=== PATIENT | male | born 1955 | race African-American/Black ===

== ENCOUNTER 2018-03-19 09:57 | Inpatient (IN) | payer OTHER ==
[2018-03-19] MEDS ORDERED: LISINOPRIL 10 MG TABLET (FP) PO ONE (12:06)
[2018-03-19] MEDS ORDERED: HYDROCHLOROTHIAZIDE 25 MG TABLET (FP) PO ONE (12:06)
[2018-03-19] MEDS ORDERED: HYDROCHLOROTHIAZIDE 25 MG TABLET (FP) ONE (12:10)
[2018-03-19] MEDS ORDERED: LISINOPRIL 20 MG TABLET (FP) ONE (12:11)
[2018-03-19 12:50] LABS: BASO % 0.5 % (0-2.0); EOS % 0.5 % (0-4.5); HEMATOCRIT 38.5 % (35.4-49); HEMOGLOBIN 12.1 GM/dL (11.7-16.9); LYMPH % 14.3 % (8-40); MCH 23.7 pg (25.7-33.7); MCHC 31.5 g/dl (32.0-35.9); MEAN CELL VOLUME 75.2 fl (80-96); MEAN PLT VOLUME 8.5 fl (7.5-11.1); MONO % 5.6 % (3.8-10.2); NEUT % 79.1 % (42.8-82.8); PLATELET COUNT 230 K/MM3 (134-434); RBC 5.12 M/mm3 (4.00-5.60); RDW 16.5 % (11.9-15.9); WHITE BLOOD COUNT 7.4 K/mm3 (4.0-10.0)
[2018-03-19 13:26] LABS: ALBUMIN 3.2 g/dl (3.4-5.0); ALK PHOS 79 U/L (45-117); ANION GAP 9 MMOL/L (8-16); BILIRUBIN,TOTAL 0.6 mg/dL (0.2-1); BLOOD UREA NITROGEN 31 mg/dL (7-18); CALCIUM 9.2 mg/dL (8.5-10.1); CHLORIDE 100 mmol/L (98-107); CO2 34 mmol/L (21-32); CREATININE 2.5 mg/dL (0.55-1.3); GLUCOSE,RANDOM 201 mg/dL (74-106); MAGNESIUM 2.7 mg/dL (1.8-2.4); PHOSPHOROUS 1.2 mg/dL (2.5-4.9); SGOT/AST 36 U/L (15-37); SGPT/ALT 28 U/L (13-61); SODIUM 143 mmol/L (136-145); TOT PROT 7.5 g/dl (6.4-8.2)
[2018-03-19 13:28] LABS: POTASSIUM 2.3 mmol/L (3.5-5.1)
[2018-03-19] MEDS ORDERED: LABETALOL HCL 5 MG/1 ML (100MG/20 ML VIAL) IVPUSH ONE (13:28)
--- NOTE | 2018-03-19 13:32 | PDOC ---
Attending Attestation - Resident Resident Name: Kye Caro - ED Attending Attestation I have performed the following: I have examined & evaluated the patient, The case was reviewed & discussed with the resident, I agree w/resident's findings & plan - HPI HPI: 03/19/18 15:25 62 YOM, with a significant past medical history of hypertension, who presents to the emergency department with, elevated blood pressure. As per patient, he arrived from [place] 3 months ago and was seen by a [facility] doctor who put him on Lisinopril/HCTZ BID. Patient notes that he ran out of blood pressure medication 4 days ago. He took his blood pressure using an at home cuff and obtained a reading of 248/120. Patient notes that his blood pressure was not well controlled with his medication. He was unable to report to the ED yesterday thus, prompting his visit today. While in the ED, the patient notes to be asymptomatic without any complaints. He denies any recent fevers, chills, headache or dizziness. He denies any recent nausea, vomit, diarrhea or constipation. He denies any recent chest pain or shortness of breath. He denies any recent dysuria, frequency, urgency or hematuria. Allergies: NKA Past surgical history: None reported. Social History: Nonsmoker. Denies EtOH use and recreational drug use. - Physicial Exam PE: 03/19/18 15:26 NAD, well appearing, MMM, nl conjunctiva, anicteric; neck supple. no JVD. lungs clear, RRR, +systolic murmur, abdomen soft nontender. VALENZUELA x4, no focal neuro deficits. No peripheral edema. normal color for ethnicity, WW. - Medical Decision Making 03/19/18 13:32 Rebecca 62 YOM from [place] x 3 months ago presenting with asymptomatic hypertension. Ran out of antihypertensives (lisinopril/hctz combo, which he has been taking x 2 weeks) 2 days ago, BP rechecked at home which has remained elevated. denies symptoms. no recent illnesses. Vitals notable for elevated BP: 248/120, HR 100. No symptoms. EKG normal sinus rhythm, no interval abnormalities, narrow QRS, ST and T wave segments and morphology normal. Nonspecific T wave abnormalities. LVH, left axis deviation. Labs and lytes with elevated Cr 2.5 and trop, with e/o end organ damage in the setting of hypertensive emergency. trop elevated 0.2, given ASA and on tele monitoring. potassium low 2.3, on tele and repleted with 3 runs of IV potassium and PO 40meq. Given PO lisinopril/hctz, slow reduction in BP down to 180s/100s, allowing for MAP reduction by no more than 25% in first 24 hours. Will admit for BP management, continuous tele monitoring and medical management , electrolyte monitoring. Dr Martinez to admit. Dx. hypertensive emergency, RONNA, electrolyte derangements with hypo-K. 03/19/18 15:25
--- NOTE | 2018-03-19 13:49 | PDOC ---
History of Present Illness - General History Source: Patient Exam Limitations: No Limitations - History of Present Illness Initial Comments: 03/19/18 13:44 *Pt is somewhat a poor historian Pt is a 62yo m with PMH of HTN presenting to ED with elevated blood pressure. Pt said he checked his bp yesterday at home with a home bp cuff and said it was high. Pt could not remember what the number was. Pt recently moved here from [place] around 3 months ago. He saw a physician at the [facility] when he was told he had hypertension. He was given lisinopril/hctz 10-12.5. He ran out of his medications 2 days ago. He has not seen a physician here. He denies headache, changes in vision, chest pain, SOB, back pain, neck pain, numbness/tingling/ weakness, abdominal pain, n/v/d, urinary symptoms, changes in bowel habits. Denies history of IN or CVA in self and denies family history of IN/CVA. PCP: none PMH: htn PSH: 3 years ago had suprapubic catheter and L kidney/ureter surgery Meds: lisinipril/hctz Allergies: nkda Social: denies <Key Caro - Last Filed: 03/19/18 14:14> <Joya Harrison - Last Filed: 03/19/18 15:27> - General Chief Complaint: Blood Pressure Problem Stated Complaint: BLOOD PRESSURE PROBLEM Time Seen by Provider: 03/19/18 11:05 Past History - Past Medical History COPD: No HTN: Yes - Immunization History Immunization Up to Date: Yes - Suicide/Smoking/Psychosocial Hx Smoking History: Never smoked Hx Alcohol Use: No Drug/Substance Use Hx: No <Key Caro - Last Filed: 03/19/18 14:14> <Joya Harrison - Last Filed: 03/19/18 15:27> - Past Medical History Allergies/Adverse Reactions: Allergies Allergy/AdvReac Type Severity Reaction Status Date / Time No Known Allergies Allergy Verified 03/19/18 10:08 Home Medications: Ambulatory Orders Aspirin [ASA -] 81 mg PO DAILY 03/19/18 Lisinopril/Hydrochlorothiazide [Lisinopril-Hctz 10-12.5 mg Tab] 1 each PO BID Review of Systems - Review of Systems Able to Perform ROS?: Yes Is the patient limited Cypriot proficient: No Constitutional: No: Chills, Fever, Weakness, Unintentional Wgt. Loss HEENTM: No: Blurred Vision, Recent change in vision, Double Vision, Hearing Loss , Throat Pain Respiratory: No: Cough, Shortness of Breath, Hemoptysis Cardiac (ROS): No: Chest Pain, Lightheadedness, Palpitations, Syncope ABD/GI: No: Diarrhea, Nausea, Poor Appetite, Vomiting, Abdominal cramping : No: Burning, Dysuria, Hematuria Musculoskeletal: No: Back Pain, Joint Pain, Muscle Pain, Neck Pain Neurological: No: Headache, Numbness, Paresthesia, Tingling, Weakness Hematologic/Lymphatic: No: Anemia, Blood Clots <Key Caro - Last Filed: 03/19/18 14:14> *Physical Exam - Vital Signs Last Vital Signs Temp Pulse Resp BP Pulse Ox 98.9 F 100 H 18 228/107 H 98 03/19/18 10:09 03/19/18 10:09 03/19/18 10:09 03/19/18 10:09 03/19/18 11:35 - Physical Exam Comments: 03/19/18 14:14 Pt sitting in bed comfortably General Appearance: Yes: Nourished, Appropriately Dressed. No: Apparent Distress HEENT: positive: EOMI, MOSES, Pharynx Normal, Hearing Grossly Normal. negative: Pale Conjunctivae, Photophobia, Scleral Icterus (R), Scleral Icterus (L), Pharyngeal Erythema, Nasal Congestion, Sinus Tenderness, Thrush Neck: positive: Trachea midline, Supple. negative: Carotid bruit, Lymphadenopathy (R), Lymphadenopathy (L) Respiratory/Chest: positive: Lungs Clear, Normal Breath Sounds. negative: Crackles, Rales, Rhonchi, Stridor, Wheezing Cardiovascular: positive: Regular Rhythm, S1, S2, Tachycardia, Other (s2 click heard over aortic valve). negative: Edema, JVD, Murmur Vascular Pulses: Carotid (R): 2+, Carotid (L): 2+, Dorsalis-Pedis (R): 2+, Doralis-Pedis (L): 2+ Gastrointestinal/Abdominal: positive: Normal Bowel Sounds, Soft. negative: Distended, Guarding, Rebound, Tenderness Musculoskeletal: negative: CVA Tenderness, CVA Tenderness (R), CVA Tenderness (L ), Decreased Range of Motion Extremity: positive: Normal Capillary Refill. negative: Pedal Edema, Swelling, Calf Tenderness, Erythema Integumentary: positive: Normal Color, Dry, Warm. negative: Pale, Cold, Rash, Swelling Neurologic: positive: classified advertising manager II-XII NML intact, Fully Oriented, Alert, Normal Mood/ Affect, Normal Response, Motor Strength 5/5. negative: Numbness, Sensory Deficit Deep Tendon Reflexes: Ankle (L): 2+, Ankle (R): 2+, Knee (L): 2+, Knee (R): 2+ <Key Caro - Last Filed: 03/19/18 14:14> - Vital Signs Last Vital Signs Temp Pulse Resp BP Pulse Ox 98.9 F 89 18 184/111 H 97 03/19/18 10:09 03/19/18 15:10 03/19/18 15:10 03/19/18 15:10 03/19/18 15:10 <Joya Harrison - Last Filed: 03/19/18 15:27> ED Treatment Course - LABORATORY CBC & Chemistry Diagram: 03/19/18 12:09 03/19/18 12:09 - ADDITIONAL ORDERS Additional order review: Laboratory Results 03/19/18 03/19/18 03/19/18 12:42 12:09 12:09 PTT (Actin FS) 37.4 H Sodium 143 Potassium 2.3 L* Chloride 100 Carbon Dioxide 34 H Anion Gap 9 BUN 31 H Creatinine 2.5 H Creat Clearance w eGFR 26.13 Random Glucose 201 H Calcium 9.2 Phosphorus 1.2 L Magnesium 2.7 H Total Bilirubin 0.6 AST 36 ALT 28 Alkaline Phosphatase 79 Creatine Kinase 628 H Creatine Kinase Index 0.6 CK-MB (CK-2) 3.8 H Troponin I 0.20 H Total Protein 7.5 Albumin 3.2 L 03/19/18 12:09 RBC 5.12 MCV 75.2 L MCHC 31.5 L RDW 16.5 H MPV 8.5 Neutrophils % 79.1 Lymphocytes % 14.3 Monocytes % 5.6 Eosinophils % 0.5 Basophils % 0.5 - RADIOLOGY Radiology Studies Ordered: Category Date Time Status CHEST X-RAY PORTABLE* [RAD] Stat Radiology 03/19/18 11:54 Completed - Medications Given in the ED: ED Medications Discontinued Medications Generic Name Dose Route Start Last Admin Trade Name Morris PRN Reason Stop Dose Admin Hydrochlorothiazide 12.5 mg 03/19/18 12:06 03/19/18 12:14 Hctz - PO 03/19/18 12:07 12.5 mg ONCE ONE Administration Lisinopril 10 mg 03/19/18 12:06 03/19/18 12:14 Prinivil PO 03/19/18 12:07 10 mg ONCE ONE Administration <Key Caro - Last Filed: 03/19/18 14:14> - LABORATORY CBC & Chemistry Diagram: 03/19/18 12:09 03/19/18 12:09 - ADDITIONAL ORDERS Additional order review: Laboratory Results 03/19/18 03/19/18 03/19/18 12:42 12:09 12:09 PTT (Actin FS) 37.4 H Sodium 143 Potassium 2.3 L* Chloride 100 Carbon Dioxide 34 H Anion Gap 9 BUN 31 H Creatinine 2.5 H Creat Clearance w eGFR 26.13 Random Glucose 201 H Calcium 9.2 Phosphorus 1.2 L Magnesium 2.7 H Total Bilirubin 0.6 AST 36 ALT 28 Alkaline Phosphatase 79 Creatine Kinase 628 H Creatine Kinase Index 0.6 CK-MB (CK-2) 3.8 H Troponin I 0.20 H Total Protein 7.5 Albumin 3.2 L 03/19/18 12:09 RBC 5.12 MCV 75.2 L MCHC 31.5 L RDW 16.5 H MPV 8.5 Neutrophils % 79.1 Lymphocytes % 14.3 Monocytes % 5.6 Eosinophils % 0.5 Basophils % 0.5 - Medications Given in the ED: ED Medications Discontinued Medications Generic Name Dose Route Start Last Admin Trade Name Morris PRN Reason Stop Dose Admin Hydrochlorothiazide 12.5 mg 03/19/18 12:06 03/19/18 12:14 Hctz - PO 03/19/18 12:07 12.5 mg ONCE ONE Administration Labetalol HCl 20 mg 03/19/18 13:28 03/19/18 14:07 Normodyne Injection - IVPUSH 03/19/18 13:29 Not Given ONCE ONE Lisinopril 10 mg 03/19/18 12:06 03/19/18 12:14 Prinivil PO 10/01/18 12:07 10 mg ONCE ONE Administration <Joya Harrison - Last Filed: 03/19/18 15:27> Medical Decision Making - Medical Decision Making 03/19/18 13:49 62yo m with PMH of htn presenting with elevated blood pressure. BP at evaluation was 240/120. Pt not having any symptoms. Vitals: hypertensive, tachycardic, afebrile PE: click of aortic valve on S2. Otherwise benign Ddx: htn urgency v. emergency Will order basic labs, ekg, troponin, ua to evaluate for end organ damage. 03/19/18 13:56 Repeat bp 197/101, hr 90, 98% saturation <Key Caro - Last Filed: 03/19/18 14:14> *DC/Admit/Observation/Transfer - Discharge Dispostion Decision to Admit order: Yes Decision to Admit order Date/Time: Decision to Admit Order Category Date Time Status Decision to Admit to Hospital Routine Admission 03/19/18 13:28 Active <Key Caro - Last Filed: 03/19/18 14:14> <Joya Harrison - Last Filed: 03/19/18 15:27> Diagnosis at time of Disposition: Hypertensive emergency, NSTEMI (non-ST elevated myocardial infarction), Elevated serum creatinine, Hypokalemia - Discharge Dispostion Condition at time of disposition: Fair
[2018-03-19] MEDS ORDERED: ASPIRIN 81 MG CHEWABLE TABLETS PO ONE (14:01)
[2018-03-19] MEDS ORDERED: KCL 10 MEQ IVPB 10 MEQ/100 ML INFUS.BAG IVPB SCH (14:15)
[2018-03-19] MEDS ORDERED: POTASSIUM CHLORIDE TABS 20 MEQ TABLET.ER (FP) PO ONE ×2 (15:24→16:27)
[2018-03-19] MEDS ORDERED: SODIUM CHLORIDE 0.9% 500 ML INFUS.BAG IV ONE (15:24)
[2018-03-19] MEDS ORDERED: KCL 10 MEQ IVPB 10 MEQ/100 ML INFUS.BAG IVPB ONE ×4 (15:53→22:45)
[2018-03-19] MEDS: KCL 10 MEQ IVPB 10 MEQ/100 ML INFUS.BAG IVPB SCH ×3 (16:07→22:43)
[2018-03-19] MEDS ORDERED: ASPIRIN 81 MG CHEWABLE TABLETS ONE (16:27)
--- NOTE | 2018-03-19 18:38 | HP ---
Admitting History and Physical - Primary Care Physician PCP: Michelle Martinez - Admission Chief Complaint: elevated bp History of Present Illness: Pt is a 62yo m with PMH of HTN presenting to ED with elevated blood pressure. Pt said he checked his bp yesterday at home with a home bp cuff and said it was high. Pt could not remember what the number was. Pt recently moved here from [place] around 3 months ago. He saw a physician at the [facility] when he was told he had hypertension. He was given lisinopril/hctz 03-30.. He ran out of his medications 2 days ago. He has not seen a physician here. He denies headache, changes in vision, chest pain, SOB, back pain, neck pain, numbness/tingling/ weakness, abdominal pain, n/v/d, urinary symptoms, changes in bowel habits. Denies history of AK or CVA in self and denies family history of AK/CVA. - Past Medical History Cardiovascular: Yes: HTN - Smoking History Smoking history: Never smoked - Alcohol/Substance Use Hx Alcohol Use: No Home Medications - Allergies Allergies/Adverse Reactions: Allergies Allergy/AdvReac Type Severity Reaction Status Date / Time No Known Allergies Allergy Verified 03/19/18 10:08 - Home Medications Home Medications: Ambulatory Orders Aspirin [ASA -] 81 mg PO DAILY 03/19/18 Carvedilol [Coreg -] 12.5 mg PO BID #60 tablet 03/22/18 Nifedipine ER [Procardia XL -] 60 mg PO DAILY #30 tab.er.24 03/22/18 Physical Examination Vital Signs: Vital Signs Temperature 98.9 F 03/19/18 10:09 Pulse Rate 89 03/19/18 15:10 Respiratory Rate 18 03/19/18 15:10 Blood Pressure 184/111 H 03/19/18 15:10 O2 Sat by Pulse Oximetry (%) 97 03/19/18 15:10 Constitutional: Yes: No Distress HENT: Yes: Atraumatic Neck: Yes: Supple Cardiovascular: Yes: Regular Rate and Rhythm Respiratory: Yes: CTA Bilaterally Gastrointestinal: Yes: Normal Bowel Sounds Extremities: Yes: WNL Edema: No Peripheral Pulses WNL: Yes Neurological: Yes: Alert, Oriented Labs: CBC, BMP 03/19/18 12:09 03/19/18 12:09 Imaging - Results X-ray: Report Reviewed Problem List - Problems (1) [id number] kidney injury Code(s): N17.9 - ACUTE KIDNEY FAILURE, UNSPECIFIED; N18.9 - CHRONIC KIDNEY DISEASE, UNSPECIFIED Qualifiers: Acute renal failure type: unspecified (2) Demand ischemia Code(s): I24.8 - OTHER FORMS OF ACUTE ISCHEMIC HEART DISEASE (3) Elevated serum creatinine Code(s): R79.89 - OTHER SPECIFIED ABNORMAL FINDINGS OF BLOOD CHEMISTRY (4) Hypertensive urgency Code(s): I16.0 - HYPERTENSIVE URGENCY Assessment/Plan Laboratory Tests 03/19/18 03/19/18 03/19/18 12:09 12:09 12:09 WBC 7.4 RBC 5.12 Hgb 12.1 Hct 38.5 MCV 75.2 L MCH 23.7 L MCHC 31.5 L RDW 16.5 H Plt Count 230 MPV 8.5 Absolute Neuts (auto) 5.9 Neutrophils % 79.1 Lymphocytes % 14.3 Monocytes % 5.6 Eosinophils % 0.5 Basophils % 0.5 Nucleated RBC % 0 PTT (Actin FS) 37.4 H Sodium 143 Potassium 2.3 L* Chloride 100 Carbon Dioxide 34 H Anion Gap 9 BUN 31 H Creatinine 2.5 H Creat Clearance w eGFR 26.13 Random Glucose 201 H Serum Osmolality Calcium 9.2 Phosphorus 1.2 L Magnesium 2.7 H Total Bilirubin 0.6 AST 36 ALT 28 Alkaline Phosphatase 79 Creatine Kinase Creatine Kinase Index CK-MB (CK-2) Troponin I Total Protein 7.5 Albumin 3.2 L Urine Color Urine Appearance Urine pH Ur Specific [place] Urine Protein Urine Glucose (UA) Urine Ketones Urine Blood Urine Nitrite Urine Bilirubin Urine Urobilinogen Ur Leukocyte Esterase Urine WBC (Auto) Urine RBC (Auto) Ur Epithelial Cells Urine Bacteria Urine Mucus Urine Osmolality Ur Random Sodium Ur Random Potassium Ur Random Chloride 03/19/18 03/19/18 03/20/18 12:42 23:10 02:48 WBC RBC Hgb Hct MCV MCH MCHC RDW Plt Count MPV Absolute Neuts (auto) Neutrophils % Lymphocytes % Monocytes % Eosinophils % Basophils % Nucleated RBC % PTT (Actin FS) Sodium 144 Potassium 2.3 L* Chloride 102 Carbon Dioxide 33 H Anion Gap 8 BUN 29 H Creatinine 2.2 H Creat Clearance w eGFR 30.28 Random Glucose 114 H Serum Osmolality Calcium 8.1 L Phosphorus Magnesium Total Bilirubin AST ALT Alkaline Phosphatase Creatine Kinase 628 H 469 H Creatine Kinase Index 0.6 0.5 CK-MB (CK-2) 3.8 H 2.7 Troponin I 0.20 H 0.19 H Total Protein Albumin Urine Color Straw Urine Appearance Clear Urine pH 7.0 Ur Specific [place] 1.011 Urine Protein Negative Urine Glucose (UA) Negative Urine Ketones Negative Urine Blood 2+ H Urine Nitrite Negative Urine Bilirubin Negative Urine Urobilinogen Negative Ur Leukocyte Esterase Trace Urine WBC (Auto) 6 Urine RBC (Auto) 14 Ur Epithelial Cells Rare Urine Bacteria Few Urine Mucus Rare Urine Osmolality Ur Random Sodium Ur Random Potassium Ur Random Chloride 03/20/18 03/20/18 03/20/18 05:30 05:30 12:48 WBC 6.9 RBC 4.50 Hgb 10.8 L Hct 33.8 L MCV 75.0 L MCH 24.1 L MCHC 32.1 RDW 16.3 H Plt Count 208 MPV 8.7 Absolute Neuts (auto) 4.6 Neutrophils % 66.4 Lymphocytes % 24.1 D Monocytes % 6.9 Eosinophils % 2.0 D Basophils % 0.6 Nucleated RBC % 0 PTT (Actin FS) Sodium 144 142 Potassium 2.3 L* 2.8 L* Chloride 102 101 Carbon Dioxide 31 36 H Anion Gap 11 5 L BUN 27 H 28 H Creatinine 2.1 H 2.0 H Creat Clearance w eGFR 31.96 33.81 Random Glucose 95 84 Serum Osmolality Calcium 8.5 8.5 Phosphorus Magnesium Total Bilirubin 0.7 AST 28 ALT 20 Alkaline Phosphatase 68 Creatine Kinase Creatine Kinase Index CK-MB (CK-2) Troponin I Total Protein 6.4 Albumin 2.8 L Urine Color Urine Appearance Urine pH Ur Specific [place] Urine Protein Urine Glucose (UA) Urine Ketones Urine Blood Urine Nitrite Urine Bilirubin Urine Urobilinogen Ur Leukocyte Esterase Urine WBC (Auto) Urine RBC (Auto) Ur Epithelial Cells Urine Bacteria Urine Mucus Urine Osmolality Ur Random Sodium Ur Random Potassium Ur Random Chloride 03/20/18 03/20/18 03/21/18 12:48 18:00 05:30 WBC RBC Hgb Hct MCV MCH MCHC RDW Plt Count MPV Absolute Neuts (auto) Neutrophils % Lymphocytes % Monocytes % Eosinophils % Basophils % Nucleated RBC % PTT (Actin FS) Sodium 138 144 Potassium 2.7 L* 3.0 L Chloride 103 106 Carbon Dioxide 28 27 Anion Gap 7 L 11 BUN 25 H 21 H Creatinine 2.0 H 1.8 H Creat Clearance w eGFR 33.81 38.18 Random Glucose 113 H 88 Serum Osmolality 296 Calcium 8.5 8.3 L Phosphorus Magnesium Total Bilirubin 0.7 AST 29 ALT 21 Alkaline Phosphatase 73 Creatine Kinase Creatine Kinase Index CK-MB (CK-2) Troponin I Total Protein 6.6 Albumin 2.8 L Urine Color Urine Appearance Urine pH Ur Specific [place] Urine Protein Urine Glucose (UA) Urine Ketones Urine Blood Urine Nitrite Urine Bilirubin Urine Urobilinogen Ur Leukocyte Esterase Urine WBC (Auto) Urine RBC (Auto) Ur Epithelial Cells Urine Bacteria Urine Mucus Urine Osmolality Ur Random Sodium Ur Random Potassium Ur Random Chloride 03/21/18 03/21/18 03/21/18 08:30 08:30 16:55 WBC RBC Hgb Hct MCV MCH MCHC RDW Plt Count MPV Absolute Neuts (auto) Neutrophils % Lymphocytes % Monocytes % Eosinophils % Basophils % Nucleated RBC % PTT (Actin FS) Sodium 138 Potassium 3.2 L Chloride 106 Carbon Dioxide 27 Anion Gap 6 L BUN 21 H Creatinine 1.8 H Creat Clearance w eGFR 38.18 Random Glucose 106 Serum Osmolality Calcium 8.5 Phosphorus Magnesium Total Bilirubin AST ALT Alkaline Phosphatase Creatine Kinase Creatine Kinase Index CK-MB (CK-2) Troponin I Total Protein Albumin Urine Color Urine Appearance Urine pH Ur Specific [place] Urine Protein Urine Glucose (UA) Urine Ketones Urine Blood Urine Nitrite Urine Bilirubin Urine Urobilinogen Ur Leukocyte Esterase Urine WBC (Auto) Urine RBC (Auto) Ur Epithelial Cells Urine Bacteria Urine Mucus Urine Osmolality 454 Ur Random Sodium 129 Ur Random Potassium 18.0 L Ur Random Chloride 120 03/22/18 07:05 WBC RBC Hgb Hct MCV MCH MCHC RDW Plt Count MPV Absolute Neuts (auto) Neutrophils % Lymphocytes % Monocytes % Eosinophils % Basophils % Nucleated RBC % PTT (Actin FS) Sodium 141 Potassium 3.5 Chloride 106 Carbon Dioxide 28 Anion Gap 6 L BUN 25 H Creatinine 1.9 H Creat Clearance w eGFR 35.87 Random Glucose 91 Serum Osmolality Calcium 8.9 Phosphorus Magnesium Total Bilirubin 0.6 AST 28 ALT 20 Alkaline Phosphatase 72 Creatine Kinase Creatine Kinase Index CK-MB (CK-2) Troponin I Total Protein 6.9 Albumin 2.8 L Urine Color Urine Appearance Urine pH Ur Specific [place] Urine Protein Urine Glucose (UA) Urine Ketones Urine Blood Urine Nitrite Urine Bilirubin Urine Urobilinogen Ur Leukocyte Esterase Urine WBC (Auto) Urine RBC (Auto) Ur Epithelial Cells Urine Bacteria Urine Mucus Urine Osmolality Ur Random Sodium Ur Random Potassium Ur Random Chloride Active Medications Generic Name Dose Route Start Last Admin Trade Name Freq PRN Reason Stop Dose Admin Carvedilol 12.5 mg 03/22/18 11:20 Coreg - PO BID JESSI Nifedipine 60 mg 03/22/18 10:00 03/22/18 11:11 Procardia Xl - PO 60 mg DAILY JESSI Administration Potassium Chloride 40 meq 03/20/18 10:00 03/22/18 11:11 K-Dur - PO 40 meq DAILY JESSI Administration
[2018-03-19] MEDS ORDERED: NITROGLYCERIN 2% OINTMENT - 1GM PACKET TD ONE ×2 (18:56→22:45)
[2018-03-19 23:45] LABS: ANION GAP 8 MMOL/L (8-16); BLOOD UREA NITROGEN 29 mg/dL (7-18); CALCIUM 8.1 mg/dL (8.5-10.1); CHLORIDE 102 mmol/L (98-107); CO2 33 mmol/L (21-32); CREATININE 2.2 mg/dL (0.55-1.3); GLUCOSE,RANDOM 114 mg/dL (74-106); SODIUM 144 mmol/L (136-145)
[2018-03-19 23:46] LABS: POTASSIUM 2.3 mmol/L (3.5-5.1)
[2018-03-20 03:09] LABS: URINE APPEARANCE CLEAR; URINE BILIRUBIN NEGATIVE (<2.0 mg/dL); URINE COLOR STRAW; URINE GLUCOSE (UA) NEGATIVE (NEGATIVE); URINE KETONE NEGATIVE (NEGATIVE); URINE LEUK ESTERASE TRACE (NEGATIVE); URINE NITRITE NEGATIVE (NEGATIVE); URINE PROTEIN NEGATIVE (NEGATIVE); URINE UROBILINOGEN NEGATIVE mg/dL (0.2-1.0)
[2018-03-20 03:44] LABS: EPI CELLS RARE /HPF (FEW); URINE BACTERIA FEW /hpf (NONE SEEN)
[2018-03-20 04:05] LABS: URINE MUCUS RARE
[2018-03-20 04:28] VITALS: BMI 30.7
[2018-03-20 06:50] LABS: BASO % 0.6 % (0-2.0); HEMATOCRIT 33.8 % (35.4-49); HEMOGLOBIN 10.8 GM/dL (11.7-16.9); LYMPH % 24.1 % (8-40); MCH 24.1 pg (25.7-33.7); MCHC 32.1 g/dl (32.0-35.9); MEAN PLT VOLUME 8.7 fl (7.5-11.1); MONO % 6.9 % (3.8-10.2); NEUT % 66.4 % (42.8-82.8); PLATELET COUNT 208 K/MM3 (134-434); RDW 16.3 % (11.9-15.9); WHITE BLOOD COUNT 6.9 K/mm3 (4.0-10.0)
[2018-03-20 07:57] LABS: ALBUMIN 2.8 g/dl (3.4-5.0); ALK PHOS 68 U/L (45-117); ANION GAP 11 MMOL/L (8-16); BILIRUBIN,TOTAL 0.7 mg/dL (0.2-1); BLOOD UREA NITROGEN 27 mg/dL (7-18); CALCIUM 8.5 mg/dL (8.5-10.1); CHLORIDE 102 mmol/L (98-107); CO2 31 mmol/L (21-32); CREATININE 2.1 mg/dL (0.55-1.3); GLUCOSE,RANDOM 95 mg/dL (74-106); SGOT/AST 28 U/L (15-37); SGPT/ALT 20 U/L (13-61); SODIUM 144 mmol/L (136-145); TOT PROT 6.4 g/dl (6.4-8.2)
[2018-03-20 08:26] LABS: POTASSIUM 2.3 mmol/L (3.5-5.1)
[2018-03-20] MEDS ORDERED: POTASSIUM CHLORIDE TABS 20 MEQ TABLET.ER (FP) PO ONE ×2 (09:45→16:42)
[2018-03-20] MEDS: KCL 10 MEQ IVPB 10 MEQ/100 ML INFUS.BAG IVPB SCH ×8 (09:58→23:34)
[2018-03-20] MEDS: metoPROLOL SUCCINATE 25 MG TAB.SR.24H (FP) PO SCH (09:59)
[2018-03-20] MEDS: amLODIPine BESYLATE 10 MG TABLET (FP) PO SCH (09:59)
--- NOTE | 2018-03-20 10:45 | EKG ---
Test Reason : Blood Pressure : / mmHG Vent. Rate : 085 BPM Atrial Rate : 085 BPM P-R Int : 228 ms QRS Dur : 112 ms QT Int : 406 ms P-R-T Axes : 037 -39 017 degrees QTc Int : 483 ms POOR DATA QUALITY, INTERPRETATION MAY BE ADVERSELY AFFECTED SINUS RHYTHM WITH 1ST DEGREE A-V BLOCK POSSIBLE LEFT ATRIAL ENLARGEMENT LEFT AXIS DEVIATION INCOMPLETE RIGHT BUNDLE BRANCH BLOCK LEFT VENTRICULAR HYPERTROPHY PROLONGED QT ABNORMAL ECG NO PREVIOUS ECGS AVAILABLE Confirmed by Amado Matthew MD ([id number]) on 03/20/2018 10:44:51 AM Referred By: Confirmed By:Amado Matthew MD
--- NOTE | 2018-03-20 12:38 | PN ---
Progress Note (short form) - Note Progress Note: Chief Complaint: Events noted, notes reviewed, denies any chest pain or dyspnea History of Present Illness: Seen and examined on telemetry. Full consult - Current Medication List Current Medications Amlodipine Besylate (Norvasc -) 10 mg PO DAILY [facility] Last Admin: 03/20/18 09:59 Dose: 10 mg Metoprolol Succinate (Toprol Xl -) 25 mg PO DAILY [facility] Last Admin: 03/20/18 09:59 Dose: 25 mg Potassium Chloride (K-Dur -) 40 meq PO DAILY [facility] Review of Systems - Review of Systems Constitutional: denies: Chills or Fever Cardiovascular: as noted above Gastrointestinal: denies: Nausea, Vomiting, Diarrhea, Constipation or Abdominal Pain Genitourinary: No symptoms reported Neurological: right upper extremity weakness - Objective Vital Signs: Last Vital Signs Temp Pulse Resp BP Pulse Ox 98.8 F 78 18 144/77 99 03/20/18 06:00 03/20/18 09:26 03/20/18 09:26 03/20/18 09:26 03/20/18 04:09 Intake & Output 03/17/18 03/18/18 03/19/18 03/20/18 23:59 23:59 23:59 23:59 Intake Total 500 Balance 500 Weight 176 lb 179 lb Neck: Supple Negative JVD No Bruit Cardiovascular: S1 S2 Regular Rate Rhythm Grade 1-2/6 systolic ejection murmur Respiratory: Clear to A&P Gastrointestinal: Soft Benign Normal Bowel Sounds Ext: Negative Edema Labs: Troponin, BNP 03/19/18 12:42 Troponin I 0.20 H CBC, BMP 03/20/18 05:30 03/20/18 05:30 Hepatic Panel Total Bilirubin 0.7 mg/dL (0.2-1) 03/20/18 05:30 AST 28 U/L (15-37) 03/20/18 05:30 ALT 20 U/L (13-61) 03/20/18 05:30 Alkaline Phosphatase 68 U/L (45-117) 03/20/18 05:30 Albumin 2.8 g/dl (3.4-5.0) L 03/20/18 05:30 Assessment/Plan ASSESSMENT: 1. Hypertensive cardiovascular disease, labile blood pressure uncontrolled, medical therapy non administration 2. CAD angina pectoris with evidence of demand ischemia 3. Probable diastolic LV dysfunction with class 0 NYHA classification LV failure 4. Heart murmur related to probable aortic valve sclerosis 5. Questionable history of CVA with right upper extremity weakness 6. CKD 7. Anemia, etiology to be determined 8. Hypokalemia PLAN: 1. Continue Toprol XL and titrate dosage 2. Continue Norvasc 3. Ideally should be on ACEI or ARBS unless contraindicated, pending renal function stabilization 4. Correction of Hypokalemia 5. Echocardiography for evaluation of LV size and function and the above noted heart murmur Katie Luu MD
--- NOTE | 2018-03-20 13:20 | CONS ---
DATE OF CONSULTATION: 03/20/2018 REQUESTING PHYSICIAN: Michelle Martinez MD CHIEF COMPLAINT: Evaluation of hypertension, elevated troponin-I level. A 62-year-old male of [place] descent, of ancestry, with known history of hypertensive cardiovascular disease, questionable history of cerebrovascular disease with minimal right upper extremity weakness, who denied diabetes mellitus, hypercholesterolemia, tobacco abuse, who presented to [facility] Emergency Room after obtaining home blood pressure measurement which was noted to be significantly elevated. Patient stated that he has not administered his medical therapy for management of the above-noted hypertension for several days since he ran out of his medications. Patient did not report any chest discomfort. Patient denied any dyspnea, orthopnea, paroxysmal nocturnal dyspnea, or peripheral edema. Patient denied any palpitation, dizziness, lightheadedness, or syncope. Patient denied any headaches or visual symptoms. PAST MEDICAL HISTORY: Hypertensive cardiovascular disease, questionable history of cerebrovascular disease with right upper extremity weakness, and a urologic procedure, details of which are not available. SOCIAL HISTORY: Denies smoking. FAMILY HISTORY: Positive for hypertensive cardiovascular disease. ALLERGIES: None reported. MEDICAL THERAPY AT HOME: Patient does not recall. Medical therapy currently includes Norvasc 10 mg once a day, Toprol-XL 25 mg once a day, and potassium supplementation. REVIEW OF SYSTEMS: Head and Neck: Denies headache, photophobia, blurring of vision. Respiratory: No cough or sputum production. Cardiovascular: As noted above. Gastrointestinal: Denies nausea, vomiting, diarrhea, abdominal discomfort. Genitourinary: No symptoms reported. Musculoskeletal: No symptoms reported. PHYSICAL EXAMINATION: Vital Signs: Blood pressure is 144/77 mmHg, pulse rate is 78 beats per minute. Head and Neck: Pupils equal and reactive to light and accommodation. Extraocular muscles are intact. Anicteric sclerae. Negative JVD. No bruit appreciated. Chest: Clear to auscultation and percussion. Cardiovascular: S1 and S2 regular. Grade 1-2/6 systolic ejection murmur. No clicks or gallop. Abdomen: Soft, benign. Normoactive bowel sounds. Extremities: Distal pulses 2+. No calf tenderness. Electrocardiogram revealed sinus rhythm with left axis deviation, poor R-wave progression, right-sided conduction delay with nonspecific T-wave abnormality. CBC revealed white cell count 6.9, hemoglobin 10.8, platelet count 208. Basic metabolic profile: Sodium 144, potassium 2.3, BUN of 27, creatinine 2.1, glucose 95. AST 28, ALT 20. ASSESSMENT: 1. Hypertensive cardiovascular disease, labile blood pressure, uncontrolled. Medical therapy none administration. 2. Coronary artery disease, angina pectoris with evidence of demand ischemia, elevated troponin-I level at 0.20. Probable diastolic left ventricular dysfunction with clinical class 0 [place] [employer] classification left ventricular failure. 3. Heart murmur, most likely related to aortic valve sclerosis. 4. Questionable history of cerebrovascular disease with right upper extremity weakness. 5. Chronic kidney disease. 6. Anemia, etiology of which is to be determined. 7. Hypokalemia. RECOMMENDATION: 1. Continuation of Toprol-XL therapy and titration of dosage. 2. Continuation of Norvasc therapy. 3. Ideally, patient should be on EPPE inhibitors or angiotensin receptor blockers unless it is absolutely contraindicated, pending renal function stabilization. 4. Correction of hypokalemia. 5. Echocardiography for evaluation of left ventricular size and function and the above-noted heart murmur. Thank you for the kind referral. TRUDY ASHLEY M.D. [id number]
[2018-03-20 13:37] LABS: ANION GAP 5 MMOL/L (8-16); BLOOD UREA NITROGEN 28 mg/dL (7-18); CALCIUM 8.5 mg/dL (8.5-10.1); CHLORIDE 101 mmol/L (98-107); CO2 36 mmol/L (21-32); GLUCOSE,RANDOM 84 mg/dL (74-106); SODIUM 142 mmol/L (136-145)
[2018-03-20 13:39] LABS: POTASSIUM 2.8 mmol/L (3.5-5.1)
--- NOTE | 2018-03-20 14:09 | ECHO ---
Name: KARLO BEST Exam:Adult Echocardiogram Study Date: 03/20/2018 09:15 AM Age: 62 yrs Reason For Study: HTN Height: 64 in Weight: 176 lb BSA: 1.9 m2 MMode/2D Measurements & Calculations IVSd: 1.6 cm Ao root diam: 2.8 cm LVIDd: 3.7 cm LA dimension: 4.2 cm LVIDs: 2.8 cm LVPWd: 1.3 cm EDV(Teich): 58.9 ml LAV (MOD-bp): 38.2 ml ESV(Teich): 29.2 ml Doppler Measurements & Calculations MV E max kirsty: 50.9 cm/sec AI P1/2t: 1163 msec MV A max kirsty: 99.0 cm/sec MV E/A: 0.51 MV dec time: 0.14 sec AI max kirsty: 286.4 cm/sec TR max kirsty: 175.1 cm/sec AI max P.8 mmHg TR max P.3 mmHg AI dec slope: 72.1 cm/sec2 Med Peak E' Kirsty: 4.8 cm/sec PI Vmax: 103.2 cm/sec Med E/e': 10.6 Lat Peak E' Kirsty: 5.5 cm/sec Lat E/e': 9.2 Procedure A complete two-dimensional transthoracic echocardiogram was performed (2D, M-mode, Doppler and color flow Doppler). Left Ventricle The left ventricle is normal in size. There is moderate concentric left ventricular hypertrophy. The left ventricle is hyperdynamic. Ejection Fraction = 70%. The transmitral spectral Doppler flow pattern is suggestive of impaired LV relaxation. Right Ventricle The right ventricle is normal in size and function. Atria The left atrium is mildly dilated. Right atrial size is normal. Mitral Valve The mitral valve is grossly normal. There is trace mitral regurgitation. Tricuspid Valve There is mild tricuspid regurgitation. Right ventricular systolic pressure is normal. Aortic Valve There is mild aortic sclerosis.;. Mild aortic regurgitation. Pulmonic Valve The pulmonic valve is not well visualized. Great Vessels The aortic root is normal size. Pericardium/Pleura There is no pericardial effusion. There is no pleural effusion. Interpretation Summary The left ventricle is normal in size. There is moderate concentric left ventricular hypertrophy. The left ventricle is hyperdynamic. Ejection Fraction = 70%. The left atrium is mildly dilated. There is trace mitral regurgitation. There is mild tricuspid regurgitation. Right ventricular systolic pressure is normal. Mild aortic regurgitation. MD Amado Matthew 03/20/2018 02:09 PM
[2018-03-20] MEDS: POTASSIUM CHLORIDE TABS 20 MEQ TABLET.ER (FP) PO SCH (14:43)
--- NOTE | 2018-03-20 16:47 | CONSULT ---
Consult Consult Specialty:: Nephrology Reason for Consultation:: hypokalemia - History of Present Illness Chief Complaint: HTN History of Present Illness: Pt is a 62 year old male with pmhx of HTN who presents to the ER with elevated blood pressure. He was found to be hypokalemic and I was called to evaluate him. He says he has had history of HTN for about 20 years. He was started on lisinopril/hctz a few months ago but has stopped them as he ran out. He denies chest pain or shortness of breath. He was found to be hypokalemic. He was given multiple runs of potassium and his levels are still low. He denies palpitations. He does have a strong family history of HTN. - History Source History Provided By: Patient - Past Medical History Cardio/Vascular: Yes: HTN - Alcohol/Substance Use Hx Alcohol Use: No - Smoking History Smoking history: Never smoked Have you smoked in the past 12 months: No Home Medications - Allergies Allergies/Adverse Reactions: Allergies Allergy/AdvReac Type Severity Reaction Status Date / Time No Known Allergies Allergy Verified 03/19/18 10:08 - Home Medications Home Medications: Ambulatory Orders Aspirin [ASA -] 81 mg PO DAILY 03/19/18 Lisinopril/Hydrochlorothiazide [Lisinopril-Hctz 10-12.5 mg Tab] 1 each PO BID Family Disease History - Family Disease History Family Disease History: Other: Brother (htn), Sister (htn), Son (htn) Review of Systems - Review of Systems Constitutional: reports: No Symptoms Eyes: reports: No Symptoms HENT: reports: No Symptoms Neck: reports: No Symptoms Cardiovascular: reports: No Symptoms Respiratory: reports: No Symptoms Gastrointestinal: reports: No Symptoms Genitourinary: reports: No Symptoms Musculoskeletal: reports: No Symptoms Integumentary: reports: No Symptoms Neurological: reports: No Symptoms Endocrine: reports: No Symptoms Hematology/Lymphatic: reports: No Symptoms Psychiatric: reports: No Symptoms Physical Exam Vital Signs: Vital Signs Temperature 98.1 F 03/20/18 14:00 Pulse Rate 67 03/20/18 14:00 Respiratory Rate 18 03/20/18 09:26 Blood Pressure 174/96 H 03/20/18 14:00 O2 Sat by Pulse Oximetry (%) 99 03/20/18 04:09 Constitutional: Yes: Calm Eyes: Yes: Conjunctiva Clear HENT: Yes: Atraumatic Neck: Yes: Supple Cardiovascular: Yes: S1, S2 Respiratory: Yes: CTA Bilaterally Gastrointestinal: Yes: Normal Bowel Sounds, Soft Renal/: Yes: WNL Musculoskeletal: Yes: WNL Edema: No Integumentary: Yes: WNL Neurological: Yes: Oriented Psychiatric: Yes: Oriented Labs: CBC, BMP 03/20/18 05:30 03/20/18 12:48 Laboratory Tests 03/19/18 03/19/18 03/20/18 12:09 23:10 02:48 Potassium 2.3 L* 2.3 L* Creatinine 2.5 H 2.2 H Urine Protein Negative Urine Blood 2+ H 03/20/18 03/20/18 05:30 12:48 Potassium 2.3 L* 2.8 L* Creatinine 2.1 H 2.0 H Urine Protein Urine Blood Imaging - Results Chest X-ray: Report Reviewed Problem List - Problems (1) Hypertensive emergency Code(s): I16.1 - HYPERTENSIVE EMERGENCY (2) Hypokalemia Code(s): E87.6 - HYPOKALEMIA Assessment/Plan Current Medications Generic Name Dose Route Start Last Admin Trade Name Freq PRN Reason Stop Dose Admin Amlodipine Besylate 10 mg 03/20/18 10:00 03/20/18 09:59 Norvasc - PO 10 mg DAILY JESSI Administration Potassium Chloride 10 meq in 100 mls @ 100 mls/hr 03/20/18 16:45 Potassium Chloride 10 Meq Premix Ivpb - IVPB 03/20/18 19:44 Q60M JESSI Metoprolol Succinate 25 mg 03/20/18 10:00 03/20/18 09:59 Toprol Xl - PO 25 mg DAILY JESSI Administration Potassium Chloride 40 meq 03/20/18 10:00 03/20/18 14:43 K-Dur - PO 40 meq DAILY JESSI Administration Selected Entries 03/19/18 03/20/18 03/20/18 10:09 04:09 06:00 Blood Pressure 228/107 H 173/90 H 140/78 03/20/18 03/20/18 09:26 14:00 Blood Pressure 144/77 174/96 H Impression 1. HTN 2. RONNA 3. possible CKD 4. microscopic hematuria 5. hypokalemia Plan - replace potassium - hold diuretics - monitor bp - cont current meds - check renal ultrasound - check renin and gaby - will need further outpt workup - send osm and urin k to calc ttkg - will follow Dr Candelaria
[2018-03-20 19:24] LABS: ANION GAP 7 MMOL/L (8-16); BLOOD UREA NITROGEN 25 mg/dL (7-18); CALCIUM 8.5 mg/dL (8.5-10.1); CHLORIDE 103 mmol/L (98-107); CO2 28 mmol/L (21-32); GLUCOSE,RANDOM 113 mg/dL (74-106); SODIUM 138 mmol/L (136-145)
[2018-03-20 19:32] LABS: POTASSIUM 2.7 mmol/L (3.5-5.1)
[2018-03-20] MEDS ORDERED: POTASSIUM CHLORIDE ORAL LIQUID 20 MEQ/15 ML PO ONE (21:48)
--- NOTE | 2018-03-20 21:48 | PN ---
Progress Note (short form) - Note Progress Note: Laboratory Tests 03/20/18 18:00 Sodium 138 Potassium 2.7 L* Creatinine 2.0 H will supplement potassium Problem List - Problems (1) Hypertensive emergency Code(s): I16.1 - HYPERTENSIVE EMERGENCY (2) Hypokalemia Code(s): E87.6 - HYPOKALEMIA
[2018-03-20] MEDS: hydrALAZINE HCL 25 MG TABLET (FP) PO SCH ×2 (22:20→22:21)
--- NOTE | 2018-03-20 22:40 | PN ---
Progress Note, Physician - Current Medication List Current Medications: Active Medications Amlodipine Besylate (Norvasc -) 10 mg PO DAILY [facility] Last Admin: 03/20/18 09:59 Dose: 10 mg Hydralazine HCl (Apresoline -) 25 mg PO BID [facility] Last Admin: 03/20/18 22:21 Dose: Not Given Potassium Chloride (Potassium Chloride 10 Meq Premix Ivpb -) 10 meq in 100 mls @ 100 mls/hr IVPB Q60M [facility] Stop: 03/21/18 01:59 Last Admin: 03/20/18 22:20 Dose: 100 mls/hr Metoprolol Succinate (Toprol Xl -) 25 mg PO DAILY [facility] Last Admin: 03/20/18 09:59 Dose: 25 mg Potassium Chloride (K-Dur -) 40 meq PO DAILY [facility] Last Admin: 03/20/18 14:43 Dose: 40 meq - Objective Vital Signs: Vital Signs Temperature 99.0 F 03/20/18 21:00 Pulse Rate 68 03/20/18 21:00 Respiratory Rate 20 03/20/18 21:00 Blood Pressure 187/105 H 03/20/18 21:00 O2 Sat by Pulse Oximetry (%) 98 03/20/18 21:00 Labs: CBC, BMP 03/20/18 05:30 03/20/18 18:00
[2018-03-21] MEDS: KCL 10 MEQ IVPB 10 MEQ/100 ML INFUS.BAG IVPB SCH ×10 (00:19→23:03)
[2018-03-21 08:31] LABS: ALBUMIN 2.8 g/dl (3.4-5.0); ALK PHOS 73 U/L (45-117); ANION GAP 11 MMOL/L (8-16); BILIRUBIN,TOTAL 0.7 mg/dL (0.2-1); BLOOD UREA NITROGEN 21 mg/dL (7-18); CALCIUM 8.3 mg/dL (8.5-10.1); CHLORIDE 106 mmol/L (98-107); CO2 27 mmol/L (21-32); CREATININE 1.8 mg/dL (0.55-1.3); GLUCOSE,RANDOM 88 mg/dL (74-106); SGOT/AST 29 U/L (15-37); SGPT/ALT 21 U/L (13-61); SODIUM 144 mmol/L (136-145); TOT PROT 6.6 g/dl (6.4-8.2)
[2018-03-21] MEDS: POTASSIUM CHLORIDE TABS 20 MEQ TABLET.ER (FP) PO SCH (09:53)
[2018-03-21] MEDS: metoPROLOL SUCCINATE 25 MG TAB.SR.24H (FP) PO SCH (09:53)
[2018-03-21] MEDS: hydrALAZINE HCL 25 MG TABLET (FP) PO SCH ×3 (09:54→21:15)
[2018-03-21] MEDS: amLODIPine BESYLATE 10 MG TABLET (FP) PO SCH (09:54)
--- NOTE | 2018-03-21 10:52 | PN ---
Progress Note, Physician History of Present Illness: Pt seen and examined at bedside. He is awake and alert. He denies shortness of breath. He does have worsening of his lower ext edema. - Current Medication List Current Medications: Active Medications Amlodipine Besylate (Norvasc -) 10 mg PO DAILY [facility] Last Admin: 03/21/18 09:54 Dose: 10 mg Hydralazine HCl (Apresoline -) 25 mg PO BID [facility] Last Admin: 03/21/18 09:54 Dose: 25 mg Potassium Chloride (Potassium Chloride 10 Meq Premix Ivpb -) 10 meq in 100 mls @ 100 mls/hr IVPB Q60M [facility] Stop: 03/21/18 13:14 Last Admin: 03/21/18 10:47 Dose: 100 mls/hr Metoprolol Succinate (Toprol Xl -) 25 mg PO DAILY [facility] Last Admin: 03/21/18 09:53 Dose: 25 mg Potassium Chloride (K-Dur -) 40 meq PO DAILY [facility] Last Admin: 03/21/18 09:53 Dose: 40 meq - Objective Vital Signs: Vital Signs Temperature 98.6 F 03/21/18 07:34 Pulse Rate 69 03/21/18 07:34 Respiratory Rate 18 03/21/18 07:40 Blood Pressure 174/98 H 03/21/18 07:34 O2 Sat by Pulse Oximetry (%) 98 03/21/18 07:40 Constitutional: Yes: Calm Eyes: Yes: Conjunctiva Clear HENT: Yes: Atraumatic Neck: Yes: Supple Cardiovascular: Yes: S1, S2 Respiratory: Yes: CTA Bilaterally Genitourinary: Yes: WNL Musculoskeletal: Yes: WNL Edema: Yes Edema: LLE: 1+, RLE: 1+ Neurological: Yes: Oriented Psychiatric: Yes: Oriented Labs: CBC, BMP 03/20/18 05:30 03/21/18 05:30 Problem List - Problems (1) Hypertensive emergency Code(s): I16.1 - HYPERTENSIVE EMERGENCY (2) Hypokalemia Code(s): E87.6 - HYPOKALEMIA Assessment/Plan Current Medications Generic Name Dose Route Start Last Admin Trade Name Freq PRN Reason Stop Dose Admin Amlodipine Besylate 10 mg 03/20/18 10:00 03/21/18 09:54 Norvasc - PO 10 mg DAILY [facility] Administration Hydralazine HCl 25 mg 03/20/18 21:50 03/21/18 09:54 Apresoline - PO 25 mg BID JESSI Administration Potassium Chloride 10 meq in 100 mls @ 100 mls/hr 03/21/18 09:15 03/21/18 10: 47 Potassium Chloride 10 Meq Premix Ivpb - IVPB 03/21/18 13:14 100 mls/hr Q60M JESSI Administration Metoprolol Succinate 25 mg 03/20/18 10:00 03/21/18 09:53 Toprol Xl - PO 25 mg DAILY JESSI Administration Potassium Chloride 40 meq 03/20/18 10:00 03/21/18 09:53 K-Dur - PO 40 meq DAILY JESSI Administration Laboratory Tests 03/20/18 18:00 Renin Activity Pending Aldosterone Pending Impression 1. HTN 2. RONNA 3. possible CKD 4. microscopic hematuria 5. hypokalemia Plan - supplement potassium, po and IV - hold hctz - will give a dose of spironolactone - renal function is improving - increase hydralalzine dose - monitor bp - follow renin and gaby level - will follow pt - ttkg is 3.9 Dr Candelaria
--- NOTE | 2018-03-21 11:08 | PN ---
Progress Note, Physician History of Present Illness: Denies chest pain or dyspnea. - Current Medication List Current Medications: Active Medications Amlodipine Besylate (Norvasc -) 10 mg PO DAILY [facility] Last Admin: 03/21/18 09:54 Dose: 10 mg Hydralazine HCl (Apresoline -) 25 mg PO TID [facility] Potassium Chloride (Potassium Chloride 10 Meq Premix Ivpb -) 10 meq in 100 mls @ 100 mls/hr IVPB Q60M [facility] Stop: 03/21/18 13:14 Last Admin: 03/21/18 10:47 Dose: 100 mls/hr Metoprolol Succinate (Toprol Xl -) 25 mg PO DAILY [facility] Last Admin: 03/21/18 09:53 Dose: 25 mg Potassium Chloride (K-Dur -) 40 meq PO DAILY [facility] Last Admin: 03/21/18 09:53 Dose: 40 meq Spironolactone (Aldactone -) 25 mg PO ONCE ONE Stop: 03/21/18 11:16 - Objective Vital Signs: Vital Signs Temperature 98.6 F 03/21/18 07:34 Pulse Rate 69 03/21/18 07:34 Respiratory Rate 18 03/21/18 07:40 Blood Pressure 174/98 H 03/21/18 07:34 O2 Sat by Pulse Oximetry (%) 98 03/21/18 07:40 Constitutional: Yes: No Distress, Calm Neck: Yes: Supple Cardiovascular: Yes: Regular Rate and Rhythm Respiratory: Yes: Regular, CTA Bilaterally Gastrointestinal: Yes: Normal Bowel Sounds, Soft Edema: No Labs: CBC, BMP 03/20/18 05:30 03/21/18 05:30 - ....Imaging Ultrasound: Report Reviewed (Renal U/S: No hydro) EKG: Report Reviewed (Tele: NSR) Problem List - Problems (1) Hypertensive urgency Code(s): I16.0 - HYPERTENSIVE URGENCY (2) Demand ischemia Code(s): I24.8 - OTHER FORMS OF ACUTE ISCHEMIC HEART DISEASE (3) [id number] kidney injury Code(s): N17.9 - ACUTE KIDNEY FAILURE, UNSPECIFIED; N18.9 - CHRONIC KIDNEY DISEASE, UNSPECIFIED Qualifiers: Acute renal failure type: unspecified (4) Hypokalemia Code(s): E87.6 - HYPOKALEMIA Assessment/Plan ASSESSMENT: Echo: 03/20/2018 Normal LV size with mod cLVH, hyperdynamic LVEF 70%, mild LAE, mild AR, TR 1. Hypertensive cardiovascular disease, labile blood pressure uncontrolled, medical therapy non administration 2. CAD angina pectoris with evidence of demand ischemia 3. Diastolic LV dysfunction with class 0 NYHA classification LV failure 4. Acute on CKD 5. Anemia, etiology to be determined 6. Hypokalemia PLAN: 1. Change Toprol XL to carvedilol and uptitrate as tolerated 2. Change Norvasc to Procardia XL, hydralazine and aldactone added 3. Ideally should be on ACEI or ARBS unless contraindicated, pending renal function stabilization 4. Correction of Hypokalemia
[2018-03-21] MEDS ORDERED: SPIRONOLACTONE 25 MG TABLET (FP) PO ONE (11:15)
[2018-03-21] MEDS: CARVEDILOL 6.25 MG TABLET (FP) PO SCH ×2 (13:04→21:15)
[2018-03-21 18:02] LABS: ANION GAP 6 MMOL/L (8-16); BLOOD UREA NITROGEN 21 mg/dL (7-18); CALCIUM 8.5 mg/dL (8.5-10.1); CHLORIDE 106 mmol/L (98-107); CO2 27 mmol/L (21-32); CREATININE 1.8 mg/dL (0.55-1.3); GLUCOSE,RANDOM 106 mg/dL (74-106); POTASSIUM 3.2 mmol/L (3.5-5.1); SODIUM 138 mmol/L (136-145)
[2018-03-21] MEDS ORDERED: POTASSIUM CHLORIDE TABS 20 MEQ TABLET.ER (FP) PO ONE (19:52)
--- NOTE | 2018-03-21 20:29 | PN ---
Progress Note, Physician - Current Medication List Current Medications: Active Medications Carvedilol (Coreg -) 6.25 mg PO BID [facility] Last Admin: 03/21/18 13:04 Dose: 6.25 mg Hydralazine HCl (Apresoline -) 25 mg PO TID [facility] Last Admin: 03/21/18 13:05 Dose: 25 mg Potassium Chloride (Potassium Chloride 10 Meq Premix Ivpb -) 10 meq in 100 mls @ 100 mls/hr IVPB Q60M [facility] Stop: 03/21/18 22:59 Nifedipine (Procardia Xl -) 60 mg PO DAILY [facility] Potassium Chloride (K-Dur -) 40 meq PO DAILY [facility] Last Admin: 03/21/18 09:53 Dose: 40 meq - Objective Vital Signs: Vital Signs Temperature 98.4 F 03/21/18 17:00 Pulse Rate 69 03/21/18 17:00 Respiratory Rate 20 03/21/18 17:00 Blood Pressure 167/101 H 03/21/18 17:00 O2 Sat by Pulse Oximetry (%) 98 03/21/18 07:40 Labs: CBC, BMP 03/20/18 05:30 03/21/18 16:55
[2018-03-22] MEDS: hydrALAZINE HCL 25 MG TABLET (FP) PO SCH (05:43)
[2018-03-22 08:16] LABS: ALBUMIN 2.8 g/dl (3.4-5.0); ALK PHOS 72 U/L (45-117); ANION GAP 6 MMOL/L (8-16); BILIRUBIN,TOTAL 0.6 mg/dL (0.2-1); BLOOD UREA NITROGEN 25 mg/dL (7-18); CALCIUM 8.9 mg/dL (8.5-10.1); CHLORIDE 106 mmol/L (98-107); CO2 28 mmol/L (21-32); CREATININE 1.9 mg/dL (0.55-1.3); GLUCOSE,RANDOM 91 mg/dL (74-106); POTASSIUM 3.5 mmol/L (3.5-5.1); SGOT/AST 28 U/L (15-37); SGPT/ALT 20 U/L (13-61); SODIUM 141 mmol/L (136-145); TOT PROT 6.9 g/dl (6.4-8.2)
[2018-03-22] MEDS ORDERED: NIFEdipine E.R 60 MG TABLET (UD) PO SCH (10:00)
--- NOTE | 2018-03-22 11:07 | PN ---
Progress Note, Physician History of Present Illness: Denies chest pain or dyspnea. - Current Medication List Current Medications: Active Medications Carvedilol (Coreg -) 6.25 mg PO BID [facility] Last Admin: 03/21/18 21:15 Dose: 6.25 mg Hydralazine HCl (Apresoline -) 25 mg PO TID [facility] Last Admin: 03/22/18 05:43 Dose: 25 mg Nifedipine (Procardia Xl -) 60 mg PO DAILY [facility] Potassium Chloride (K-Dur -) 40 meq PO DAILY [facility] Last Admin: 03/21/18 09:53 Dose: 40 meq - Objective Vital Signs: Vital Signs Temperature 98.3 F 03/22/18 01:55 Pulse Rate 64 03/22/18 01:55 Respiratory Rate 18 03/22/18 01:55 Blood Pressure 161/95 03/22/18 01:55 O2 Sat by Pulse Oximetry (%) 97 03/21/18 21:00 Constitutional: Yes: No Distress, Calm, Thin Neck: Yes: Supple Cardiovascular: Yes: Regular Rate and Rhythm Respiratory: Yes: Regular, CTA Bilaterally Gastrointestinal: Yes: Normal Bowel Sounds, Soft Edema: No Labs: CBC, BMP 03/20/18 05:30 03/22/18 07:05 - ....Imaging EKG: Report Reviewed (Tele: NSR) Problem List - Problems (1) Hypertensive urgency Code(s): I16.0 - HYPERTENSIVE URGENCY (2) Demand ischemia Code(s): I24.8 - OTHER FORMS OF ACUTE ISCHEMIC HEART DISEASE (3) [id number] kidney injury Code(s): N17.9 - ACUTE KIDNEY FAILURE, UNSPECIFIED; N18.9 - CHRONIC KIDNEY DISEASE, UNSPECIFIED Qualifiers: Acute renal failure type: unspecified (4) Hypokalemia Code(s): E87.6 - HYPOKALEMIA Assessment/Plan ASSESSMENT: Echo: 03/20/2018 Normal LV size with mod cLVH, hyperdynamic LVEF 70%, mild LAE, mild AR, TR 1. Hypertensive cardiovascular disease, labile blood pressure uncontrolled, medical therapy non administration 2. CAD angina pectoris with evidence of demand ischemia 3. Diastolic LV dysfunction with class 0 NYHA classification LV failure 4. Acute on CKD 5. Anemia, etiology to be determined 6. Hypokalemia improved PLAN: 1. Increase carvedilol 12.5 bid and uptitrate as tolerated 2. Continue Procardia XL 60 qd, would d/c hydralazine given dose frequency 3. Ideally should be on ACEI or ARBS unless contraindicated, pending renal function stabilization 4. Correction of Hypokalemia 5. D/c planning
[2018-03-22] MEDS: CARVEDILOL 6.25 MG TABLET (FP) PO SCH (11:11)
[2018-03-22] MEDS: POTASSIUM CHLORIDE TABS 20 MEQ TABLET.ER (FP) PO SCH (11:11)
[2018-03-22] MEDS ORDERED: CARVEDILOL 6.25 MG TABLET (FP) PO ONE (11:19)
[2018-03-22] MEDS ORDERED: CARVEDILOL 12.5 MG TABLET (FP) PO SCH (11:20)
[2018-03-22] MEDS ORDERED: POTASSIUM CHLORIDE TABS 20 MEQ TABLET.ER (FP) PO ONE (14:34)
--- NOTE | 2018-03-22 14:34 | PN ---
Progress Note, Physician History of Present Illness: Pt seen and examined at bedside. He is awake and alert. He denies chest pain or shortness of breath. - Current Medication List Current Medications: Active Medications Carvedilol (Coreg -) 12.5 mg PO BID JESSI Nifedipine (Procardia Xl -) 60 mg PO DAILY JESSI Last Admin: 03/22/18 11:11 Dose: 60 mg Potassium Chloride (K-Dur -) 40 meq PO DAILY JESSI Last Admin: 03/22/18 11:11 Dose: 40 meq - Objective Vital Signs: Vital Signs Temperature 98.4 F 03/22/18 13:49 Pulse Rate 72 03/22/18 13:49 Respiratory Rate 20 03/22/18 13:49 Blood Pressure 121/75 03/22/18 13:49 O2 Sat by Pulse Oximetry (%) 97 03/21/18 21:00 Constitutional: Yes: Calm Eyes: Yes: Conjunctiva Clear HENT: Yes: Atraumatic Neck: Yes: Supple Cardiovascular: Yes: S1, S2 Respiratory: Yes: CTA Bilaterally Gastrointestinal: Yes: Normal Bowel Sounds, Soft Genitourinary: Yes: WNL Musculoskeletal: Yes: WNL Edema: No Neurological: Yes: Oriented Psychiatric: Yes: Oriented Labs: CBC, BMP 03/20/18 05:30 03/22/18 07:05 Problem List - Problems (1) Hypertensive emergency Code(s): I16.1 - HYPERTENSIVE EMERGENCY (2) Hypokalemia Code(s): E87.6 - HYPOKALEMIA Assessment/Plan Current Medications Generic Name Dose Route Start Last Admin Trade Name Freq PRN Reason Stop Dose Admin Carvedilol 12.5 mg 03/22/18 11:20 Coreg - PO BID JESSI Nifedipine 60 mg 03/22/18 10:00 03/22/18 11:11 Procardia Xl - PO 60 mg DAILY JESSI Administration Potassium Chloride 40 meq 03/20/18 10:00 03/22/18 11:11 K-Dur - PO 40 meq DAILY JESSI Administration Laboratory Tests 03/20/18 18:00 Renin Activity Pending Aldosterone Pending Impression 1. HTN 2. RONNA 3. possible CKD 4. microscopic hematuria 5. hypokalemia Plan - bp is stabilizing - cont coreg and procardia - hydralazine stopped - monitor renal function - repeat labs in am - follow renin and gaby level - will follow pt - would not restart thiazide - will need full outpt renal workup Dr Candelaria
--- NOTE | 2018-03-22 16:57 | PN ---
Progress Note, Physician History of Present Illness: doing well - Current Medication List Current Medications: Active Medications Carvedilol (Coreg -) 12.5 mg PO BID [facility] Nifedipine (Procardia Xl -) 60 mg PO DAILY [facility] Last Admin: 03/22/18 11:11 Dose: 60 mg Potassium Chloride (K-Dur -) 40 meq PO DAILY [facility] Last Admin: 03/22/18 11:11 Dose: 40 meq - Objective Vital Signs: Vital Signs Temperature 98.4 F 03/22/18 13:49 Pulse Rate 72 03/22/18 13:49 Respiratory Rate 20 03/22/18 13:49 Blood Pressure 121/75 03/22/18 13:49 O2 Sat by Pulse Oximetry (%) 97 03/21/18 21:00 Constitutional: Yes: No Distress HENT: Yes: Atraumatic Neck: Yes: Supple Cardiovascular: Yes: Regular Rate and Rhythm Respiratory: Yes: CTA Bilaterally Gastrointestinal: Yes: Normal Bowel Sounds Extremities: Yes: WNL Neurological: Yes: Alert, Oriented Labs: CBC, BMP 03/20/18 05:30 03/22/18 07:05 Problem List - Problems (1) [id number] kidney injury Assessment/Plan: cr little improved renal on board out patient renal work up Code(s): N17.9 - ACUTE KIDNEY FAILURE, UNSPECIFIED; N18.9 - CHRONIC KIDNEY DISEASE, UNSPECIFIED Qualifiers: Acute renal failure type: unspecified (2) Demand ischemia Code(s): I24.8 - OTHER FORMS OF ACUTE ISCHEMIC HEART DISEASE (3) Elevated serum creatinine Code(s): R79.89 - OTHER SPECIFIED ABNORMAL FINDINGS OF BLOOD CHEMISTRY (4) Hypertensive urgency Assessment/Plan: bp controlled Code(s): I16.0 - HYPERTENSIVE URGENCY
--- NOTE | 2018-03-22 17:10 | DS ---
Physical Examination Vital Signs: Vital Signs Temperature 98.4 F 03/22/18 13:49 Pulse Rate 72 03/22/18 13:49 Respiratory Rate 20 03/22/18 13:49 Blood Pressure 121/75 03/22/18 13:49 O2 Sat by Pulse Oximetry (%) 97 03/21/18 21:00 Constitutional: Yes: No Distress HENT: Yes: Atraumatic Neck: Yes: Supple Cardiovascular: Yes: Regular Rate and Rhythm Respiratory: Yes: CTA Bilaterally Gastrointestinal: Yes: Normal Bowel Sounds Extremities: Yes: WNL Edema: Yes Peripheral Pulses WNL: Yes Neurological: Yes: Alert, Oriented Labs: CBC, BMP 03/20/18 05:30 03/22/18 07:05 Discharge Summary Reason For Visit: HYPERTENSIVE EMERGENCY Current Active Problems [id number] kidney injury (Acute) Demand ischemia (Acute) Elevated serum creatinine (Acute) Hypertensive emergency (Acute) Hypertensive urgency (Acute) Hypokalemia (Acute) NSTEMI (non-ST elevated myocardial infarction) (Acute) Condition: Fair - Instructions Diet, Activity, Other Instructions: 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
[2018-03-22 19:54] VITALS: BP 151/86; PULSE 67; TEMP 98.5
[2018-03-24 00:13] LABS: RENIN ACTIVITY(PRA) < 0.167 ng/mL/hr (0.167-5.380)
== END 2018-03-22 18:30 | disposition home or self-care (01) | DRG 199 ==
LOC: JER 09:57 → JERBED 13:28 → OBSVTOIN 18:43 → J4W 03-20 04:05
PROVIDERS: ADMIT Internal Medicine; ATTEND Internal Medicine
DX: I16.1 Hypertensive emergency (principal); I16.0 Hypertensive urgency; I21.4 Non-ST elevation (NSTEMI) myocardial infarction; N17.9 Acute kidney failure, unspecified; I13.10 Hypertensive heart and chronic kidney disease without heart failure, with stage 1 through stage 4 chronic kidney disease, or unspecified chronic kidney disease; N18.9 Chronic kidney disease, unspecified; E87.6 Hypokalemia; D64.9 Anemia, unspecified; I25.119 Atherosclerotic heart disease of native coronary artery with unspecified angina pectoris; R31.29 Other microscopic hematuria
CPT/HCPCS: 36415; 71045-TC-FY; 76775-TC; 76856-TC; 80048; 80053; 81003; 81015; 82088; 82436; 82550; 82553; 83735; 83930; 83935; 84100; 84133; 84244; 84300; 84484; 85025; 85730; 93005; 93010; 93306-TC; 99285-25; G0378

== ENCOUNTER 2018-07-18 11:01 | Inpatient (IN) | payer OTHER ==
--- NOTE | 2018-07-18 11:24 | PDOC ---
History of Present Illness - General History Source: Patient Exam Limitations: No Limitations - History of Present Illness Initial Comments: 07/18/18 12:57 The patient is a 66 year old male, with a significant past medical history of hypertension, who presents to the emergency department sent by Dr. Jyoti Marsh from [facility] for evaluation of elevated BP (204/81) this morning despite taking his two CHRISTY medications. He states he noticed his CHRISTY is elevated in the evenings, however, noticed his BP was high even after taking his medications. The patients BP at this time is 204/116 on the left and 199/110 on the left. The patient denies chest pain, shortness of breath, headache and dizziness. The patient denies fever, chills, nausea, vomit, diarrhea and constipation. The patient denies dysuria, frequency, urgency and hematuria. Allergies: NKDA ADULT ROS CONSTITUTIONAL: Absent: fever, no chills, no fatigue EYES: Absent: visual changes ENT: Absent: ear pain, no sore throat CARDIOVASCULAR: (+) elevated BP. Absent: chest pain, no palpitations RESPIRATORY: Absent: cough, no SOB GASTROINTESTINAL: Absent: abdominal pain, no nausea, no vomiting, no constipation, no diarrhea GENITOURINARY: Absent: dysuria, no frequency, no hematuria MUSCULOSKELETAL: Absent: back pain, no arthralgia, no myalgia SKIN: Absent: rash NEURO: Absent: headache PE: GENERAL: The patient is in no acute distress. HEAD: Normal with no signs of trauma. EYES: PERRLA, EOMI, sclera anicteric, conjunctiva clear. ENT: Ears normal, nares patent, oropharynx clear without exudates. Moist mucous membranes. NECK: Normal range of motion, supple without lymphadenopathy, JVD, or masses. LUNGS: Breath sounds equal, clear to auscultation bilaterally. No wheezes, and no crackles. HEART: (+) systolic murmur. Regular rate and rhythm, normal S1 and S2 without rub or gallop. ABDOMEN: Soft, nontender, normoactive bowel sounds. No guarding, no rebound. No masses palpable. EXTREMITIES: Normal range of motion, no edema. No clubbing or cyanosis. No erythema, or tenderness. NEUROLOGICAL: Cranial nerves II through XII grossly intact. Normal speech. No focal neurological deficits. MUSCULOSKELETAL: Back non-tender to palpation, no CVA tenderness SKIN: Warm, Dry, normal turgor, no rashes or lesions noted. <Mary Jo Perez - Last Filed: 07/18/18 14:28> <Hattie Finney - Last Filed: 07/18/18 15:31> - General Chief Complaint: Blood Pressure Problem Stated Complaint: Blood Pressure Problem Time Seen by Provider: 07/18/18 11:24 Past History - Past Medical History Anemia: No Asthma: No Cancer: No Cardiac Disorders: No CVA: No COPD: No CHF: No Dementia: No Diabetes: No GI Disorders: No Disorders: No HTN: Yes Hypercholesterolemia: No Liver Disease: No Seizures: No Thyroid Disease: No - Surgical History Abdominal Surgery: No Appendectomy: No Cardiac Surgery: No Cholecystectomy: No Lung Surgery: No Neurologic Surgery: No Orthopedic Surgery: No - Immunization History Immunization Up to Date: Yes - Suicide/Smoking/Psychosocial Hx Smoking History: Never smoked Have you smoked in the past 12 months: No Information on smoking cessation initiated: No Hx Alcohol Use: No Drug/Substance Use Hx: No Substance Use Type: None Hx Substance Use Treatment: No <Mary Jo Perez - Last Filed: 07/18/18 14:28> <Hattie Finney - Last Filed: 07/18/18 15:31> - Past Medical History Allergies/Adverse Reactions: Allergies Allergy/AdvReac Type Severity Reaction Status Date / Time No Known Allergies Allergy Verified 07/18/18 11:16 Home Medications: Ambulatory Orders Carvedilol [Coreg -] 12.5 mg PO BID #60 tablet 03/22/18 Nifedipine ER [Procardia XL -] 60 mg PO DAILY #30 tab.er.24 03/22/18 *Physical Exam - Vital Signs Last Vital Signs Temp Pulse Resp BP Pulse Ox 98.7 F 97 H 16 199/111 H 96 07/18/18 11:05 07/18/18 11:05 07/18/18 11:05 07/18/18 11:05 07/18/18 11:05 <Mary Jo Perez - Last Filed: 07/18/18 14:28> - Vital Signs Last Vital Signs Temp Pulse Resp BP Pulse Ox 98.7 F 78 20 199/104 H 99 07/18/18 11:05 07/18/18 12:30 07/18/18 12:30 07/18/18 12:30 07/18/18 12:30 <Hattie Finney - Last Filed: 07/18/18 15:31> Moderate Sedation - Procedure Monitoring Vital Signs: Procedure Monitoring Vital Signs Temperature 98.7 F 07/18/18 11:05 Pulse Rate 97 H 07/18/18 11:05 Respiratory Rate 16 07/18/18 11:05 Blood Pressure 199/111 H 07/18/18 11:05 O2 Sat by Pulse Oximetry (%) 96 07/18/18 11:05 <Mary Jo Perez - Last Filed: 07/18/18 14:28> - Procedure Monitoring Vital Signs: Procedure Monitoring Vital Signs Temperature 98.7 F 07/18/18 11:05 Pulse Rate 78 07/18/18 12:30 Respiratory Rate 20 07/18/18 12:30 Blood Pressure 199/104 H 07/18/18 12:30 O2 Sat by Pulse Oximetry (%) 99 07/18/18 12:30 <Hattie Finney - Last Filed: 07/18/18 15:31> ED Treatment Course - LABORATORY CBC & Chemistry Diagram: 07/18/18 12:06 07/18/18 12:06 <Mary Jo Perez - Last Filed: 07/18/18 14:28> - LABORATORY CBC & Chemistry Diagram: 07/18/18 12:06 07/18/18 12:06 - ADDITIONAL ORDERS Additional order review: Laboratory Results 07/18/18 07/18/18 12:06 12:06 PT with INR 12.20 INR 1.03 Sodium 144 Potassium 3.5 Chloride 106 Carbon Dioxide 30 Anion Gap 8 BUN 19 H Creatinine 2.1 H Creat Clearance w eGFR 31.96 Random Glucose 95 Calcium 9.2 Magnesium 2.3 Total Bilirubin 0.5 AST 17 ALT 18 Alkaline Phosphatase 86 Creatine Kinase 224 Creatine Kinase Index 0.9 CK-MB (CK-2) 2.1 Troponin I 0.11 H Total Protein 7.6 Albumin 3.4 07/18/18 12:06 RBC 5.06 MCV 76.1 L MCHC 33.3 RDW 17.4 H MPV 8.6 Neutrophils % 71.4 Lymphocytes % 18.2 D Monocytes % 6.1 Eosinophils % 3.6 Basophils % 0.7 - RADIOLOGY Radiograph Interpretation: 07/18/18 15:31 EXAM#: TYPE/EXAM: RESULT: [id number] CT/HEAD CT WITHOUT CONTRAST Cranial CT without contrast IMPRESSION: No definite CT evidence of acute intracranial pathology. Small chronic left thalamic infarct. A small left frontal subcortical white matter infarct is noted which is probably chronic. Mild periventricular chronic microvascular ischemic changes. Reported By: Rm Howard MD 07/18/18 1517 - Medications Given in the ED: ED Medications Discontinued Medications Generic Name Dose Route Start Last Admin Trade Name Morris PRN Reason Stop Dose Admin Labetalol HCl 10 mg 07/18/18 11:55 07/18/18 12:30 Normodyne Injection - IVPUSH 07/18/18 11:56 10 mg ONCE ONE Administration <Hattie Finney - Last Filed: 07/18/18 15:31> Medical Decision Making - Medical Decision Making 07/18/18 12:57 62 yo M presenting with elevated BP from his pmds office Pt has NO complaints Did mention left sided headache yesterday Pt denies chest pain, palpitations, shortness of breath Pt has been compliant with his medications EKG: NSR rate of 89 bpm, LAD, no ST elevation or depression, t wave inversion aVL and I, t waves upright 07/18/18 13:22 Laboratory Tests 03/22/18 07/18/18 07/18/18 07:05 12:06 12:06 WBC 6.7 Hgb 12.9 Hct 38.5 Plt Count 178 INR 1.03 BUN 25 H Creatinine 1.9 H Creatine Kinase Troponin I 07/18/18 12:06 WBC Hgb Hct Plt Count INR BUN 19 H Creatinine 2.1 H Creatine Kinase 224 Troponin I 0.11 H 07/18/18 13:22 No chest pain Awaiting CT Will place on observation <Mary Jo Perez - Last Filed: 07/18/18 14:28> *DC/Admit/Observation/Transfer - Discharge Dispostion Decision to Admit order: Yes <Mary Jo Perez - Last Filed: 07/18/18 14:28> <Hattie Finney - Last Filed: 07/18/18 15:31> Diagnosis at time of Disposition: Hypertensive emergency - Discharge Dispostion Condition at time of disposition: Stable
[2018-07-18] MEDS ORDERED: LABETALOL HCL 5 MG/1 ML (100MG/20 ML VIAL) IVPUSH ONE ×2 (11:55→17:36)
[2018-07-18 12:38] LABS: BASO % 0.7 % (0-2.0); EOS % 3.6 % (0-4.5); HEMATOCRIT 38.5 % (35.4-49); HEMOGLOBIN 12.9 GM/dL (11.7-16.9); LYMPH % 18.2 % (8-40); MCH 25.4 pg (25.7-33.7); MCHC 33.3 g/dl (32.0-35.9); MEAN CELL VOLUME 76.1 fl (80-96); MEAN PLT VOLUME 8.6 fl (7.5-11.1); MONO % 6.1 % (3.8-10.2); NEUT % 71.4 % (42.8-82.8); PLATELET COUNT 178 K/MM3 (134-434); RBC 5.06 M/mm3 (4.00-5.60); RDW 17.4 % (11.9-15.9); WHITE BLOOD COUNT 6.7 K/mm3 (4.0-10.0)
[2018-07-18 12:50] LABS: INR 1.03 (0.83-1.09); PROTHROMBIN TIME (PATIENT) 12.2 SEC (9.7-13.0)
[2018-07-18 13:02] LABS: ALBUMIN 3.4 g/dl (3.4-5.0); ALK PHOS 86 U/L (45-117); ANION GAP 8 MMOL/L (8-16); BILIRUBIN,TOTAL 0.5 mg/dL (0.2-1); BLOOD UREA NITROGEN 19 mg/dL (7-18); CALCIUM 9.2 mg/dL (8.5-10.1); CHLORIDE 106 mmol/L (98-107); CO2 30 mmol/L (21-32); CREATININE 2.1 mg/dL (0.55-1.3); GLUCOSE,RANDOM 95 mg/dL (74-106); MAGNESIUM 2.3 mg/dL (1.8-2.4); POTASSIUM 3.5 mmol/L (3.5-5.1); SGOT/AST 17 U/L (15-37); SGPT/ALT 18 U/L (13-61); SODIUM 144 mmol/L (136-145); TOT PROT 7.6 g/dl (6.4-8.2)
--- NOTE | 2018-07-18 15:33 | PN ---
Teaching Attending Note Name of Resident: Luna Landry ATTENDING PHYSICIAN STATEMENT I saw and evaluated the patient. I reviewed the resident's note and discussed the case with the resident. I agree with the resident's findings and plan as documented. SUBJECTIVE: Patient is a 62 yo M wth a PMH of HTN, CKD, was sent by his PCP because of elevated BP of 204/81 in the office. Patient denies any headache, no shortness of breath, no nausea or vomiting. OBJECTIVE: Vital Signs Temperature 98.7 F 07/18/18 11:05 Pulse Rate 78 07/18/18 12:30 Respiratory Rate 20 07/18/18 12:30 Blood Pressure 199/104 H 07/18/18 12:30 O2 Sat by Pulse Oximetry (%) 99 07/18/18 12:30 Initial Vital Signs Temp Pulse Resp BP Pulse Ox 98.7 F 97 H 16 199/111 H 96 07/18/18 11:05 07/18/18 11:05 07/18/18 11:05 07/18/18 11:05 07/18/18 11:05 GENERAL: The patient is in no acute distress. HEAD: Normal with no signs of trauma. EYES: PERRLA, EOMI, sclera anicteric, conjunctiva clear. ENT: Ears normal, oropharynx clear without exudates. Moist mucous membranes. NECK: Normal range of motion, supple without lymphadenopathy, JVD, or masses. LUNGS: Breath sounds equal, clear to auscultation bilaterally. No wheezes, and no crackles. HEART: DIRK 2/6. RRR, normal S1 and S2 without rub or gallop. ABDOMEN: Soft, nontender, normoactive bowel sounds. No guarding, no rebound. EXTREMITIES: Normal range of motion, no edema. No clubbing or cyanosis. No erythema, or tenderness. NEUROLOGICAL: Cranial nerves II through XII grossly intact. Normal speech. No focal neurological deficits. MUSCULOSKELETAL: Back non-tender to palpation, no CVA tenderness SKIN: Warm, Dry, normal turgor, no rashes or lesions noted. CBCD WBC 6.7 K/mm3 (4.0-10.0) 07/18/18 12:06 RBC 5.06 M/mm3 (4.00-5.60) 07/18/18 12:06 Hgb 12.9 GM/dL (11.7-16.9) 07/18/18 12:06 Hct 38.5 % (35.4-49) 07/18/18 12:06 MCV 76.1 fl (80-96) L 07/18/18 12:06 MCHC 33.3 g/dl (32.0-35.9) 07/18/18 12:06 RDW 17.4 % (11.9-15.9) H 07/18/18 12:06 Plt Count 178 K/MM3 (134-434) 07/18/18 12:06 MPV 8.6 fl (7.5-11.1) 07/18/18 12:06 CMP Sodium 144 mmol/L (136-145) 07/18/18 12:06 Potassium 3.5 mmol/L (3.5-5.1) 07/18/18 12:06 Chloride 106 mmol/L (98-107) 07/18/18 12:06 Carbon Dioxide 30 mmol/L (21-32) 07/18/18 12:06 Anion Gap 8 MMOL/L (8-16) 07/18/18 12:06 BUN 19 mg/dL (7-18) H 07/18/18 12:06 Creatinine 2.1 mg/dL (0.55-1.3) H 07/18/18 12:06 Creat Clearance w eGFR 31.96 (>60) 07/18/18 12:06 Random Glucose 95 mg/dL (74-106) 07/18/18 12:06 Calcium 9.2 mg/dL (8.5-10.1) 07/18/18 12:06 Total Bilirubin 0.5 mg/dL (0.2-1) 07/18/18 12:06 AST 17 U/L (15-37) 07/18/18 12:06 ALT 18 U/L (13-61) 07/18/18 12:06 Alkaline Phosphatase 86 U/L (45-117) 07/18/18 12:06 Total Protein 7.6 g/dl (6.4-8.2) 07/18/18 12:06 Albumin 3.4 g/dl (3.4-5.0) 07/18/18 12:06 CARDIAC ENZYMES Creatine Kinase 224 U/L (26-308) 07/18/18 12:06 Troponin I 0.11 ng/ml (0.00-0.05) H 07/18/18 12:06 Home Medications Medication Instructions Recorded Carvedilol [Coreg -] 12.5 mg PO BID #60 tablet 03/22/18 Nifedipine ER [Procardia XL -] 60 mg PO DAILY #30 tab.er.24 03/22/[address]: small chronic left thalamic infarct, small left frontal subcortical white matter infarct. EKG: NSR rate of 89 bpm, LAD, no ST elevation or depression, t wave inversion aVL and I, t waves upright Assessment and plan: Patient is a 62 yo Male with a PMHx of HTN, possible CKD, was sent by his PCP since was found to have elevated BP of 204/81 in the office. # Hypertensive emergency: given Labetolol IV in ED. ON Coreg, hydralazine and procardia continue , admit to tele and continue to monitor the patient. # Elevated Troponin: 0.11 1st set, will repeat the trop. Echo 04/05 unremarkable. EF 70%, will repeat the troponins x 2 case discussed with cardio Dr. Luu over the phone. Agrees with plan, will repeat trop and control BP. #RONNA over CKD: avoid nephrotoxins, IVF 1/2 NS, DVT Px: heparin sq.
--- NOTE | 2018-07-18 15:54 | HP ---
CHIEF COMPLAINT: hypertension PCP: Dr. Jyoti Marsh HISTORY OF PRESENT ILLNESS: Patient is a 62 yo M wth a PMH of HTN, possible CKD , was sent by his PCP because of elevated BP of 204/81 in the office. Patient is asymptomatic with no complaints. He said he took his HTN meds this AM. He takes Coreg and Nifedipine. He was admitted in March for a similar presentation. At that time he was worked up by cardiology and was told to follow up outpatient. Patient says he has not followed up with cardiology or nephro since last admission. He currently denies headache, dizziness, nausea, vomiting, sob, chest pain, bloody stools, diarrhea. ER course was notable for: (1) 199/111 (2) Head CT neg (3) Trop 0.11 Recent Travel: n/a PAST MEDICAL HISTORY: per hpi PAST SURGICAL HISTORY: n/a Family History: Allergies No Known Allergies Allergy (Verified 07/18/18 11:16) HOME MEDICATIONS: Home Medications Medication Instructions Recorded Carvedilol [Coreg -] 12.5 mg PO BID #60 tablet 03/22/18 Nifedipine ER [Procardia XL -] 60 mg PO DAILY #30 tab.er.24 03/22/18 REVIEW OF SYSTEMS CONSTITUTIONAL: Absent: fever, chills, diaphoresis, generalized weakness, malaise, loss of appetite, weight change HEENT: Absent: rhinorrhea, nasal congestion, throat pain, throat swelling, difficulty swallowing, mouth swelling, ear pain, eye pain, visual changes CARDIOVASCULAR: Absent: chest pain, syncope, palpitations, irregular heart rate, lightheadedness , peripheral edema RESPIRATORY: Absent: cough, shortness of breath, dyspnea with exertion, orthopnea, wheezing, stridor, hemoptysis GASTROINTESTINAL: Absent: abdominal pain, abdominal distension, nausea, vomiting, diarrhea, constipation, melena, hematochezia GENITOURINARY: Absent: dysuria, frequency, urgency, hesitancy, hematuria, flank pain, genital pain MUSCULOSKELETAL: Absent: myalgia, arthralgia, joint swelling, back pain, neck pain SKIN: Absent: rash, itching, pallor HEMATOLOGIC/IMMUNOLOGIC: Absent: easy bleeding, easy bruising, lymphadenopathy, frequent infections ENDOCRINE: Absent: unexplained weight gain, unexplained weight loss, heat intolerance, cold intolerance NEUROLOGIC: Absent: headache, focal weakness or paresthesias, dizziness, unsteady gait, seizure, mental status changes, bladder or bowel incontinence PSYCHIATRIC: Absent: anxiety, depression, suicidal or homicidal ideation, hallucinations. PHYSICAL EXAMINATION Vital Signs - 24 hr 07/18/18 07/18/18 11:05 12:30 Temperature 98.7 F Pulse Rate 97 H Pulse Rate [ 78 Radial] Respiratory 16 20 Rate Blood Pressure 199/111 H Blood Pressure 199/104 H [Left Arm] O2 Sat by Pulse 96 99 Oximetry (%) GENERAL: Awake, alert, and fully oriented, in no acute distress. HEAD: Normal with no signs of trauma. EYES: Pupils equal, round and reactive to light, extraocular movements intact, sclera anicteric, conjunctiva clear. EARS, NOSE, THROAT: oropharynx clear without exudates. Moist mucous membranes. NECK: Normal range of motion, supple without lymphadenopathy, JVD, or masses. LUNGS: Breath sounds equal, clear to auscultation bilaterally. No wheezes, and no crackles. HEART: Regular rate and rhythm, normal S1 and S2 . + S murmur CHUYITA ABDOMEN: Soft, nontender, not distended, normoactive bowel sounds, no guarding, no rebound, no masses. No hepatomegaly or splenomegaly. MUSCULOSKELETAL: Normal range of motion at all joints. No bony deformities or tenderness. No CVA tenderness. UPPER EXTREMITIES: 2+ pulses, warm, No peripheral edema. LOWER EXTREMITIES: 2+ pulses, No peripheral edema. NEUROLOGICAL: Cranial nerves II-XII intact. Normal speech. Normal gait. Laboratory Results - last 24 hr 07/18/18 07/18/18 07/18/18 12:06 12:06 12:06 WBC 6.7 RBC 5.06 Hgb 12.9 Hct 38.5 MCV 76.1 L MCH 25.4 L MCHC 33.3 RDW 17.4 H Plt Count 178 MPV 8.6 Absolute Neuts (auto) 4.8 Neutrophils % 71.4 Lymphocytes % 18.2 D Monocytes % 6.1 Eosinophils % 3.6 Basophils % 0.7 Nucleated RBC % 0 PT with INR 12.20 INR 1.03 Sodium 144 Potassium 3.5 Chloride 106 Carbon Dioxide 30 Anion Gap 8 BUN 19 H Creatinine 2.1 H Creat Clearance w eGFR 31.96 Random Glucose 95 Calcium 9.2 Magnesium 2.3 Total Bilirubin 0.5 AST 17 ALT 18 Alkaline Phosphatase 86 Creatine Kinase 224 Creatine Kinase Index 0.9 CK-MB (CK-2) 2.1 Troponin I 0.11 H Total Protein 7.6 Albumin 3.4 ASSESSMENT/PLAN: 62 yo M wth a PMH of HTN, possible CKD, was sent by his PCP because of elevated BP of 204/81 in the office. #HTN emergency -BP 119/11 in ED -Labetolol IV 1x in ED -asympomatic -trop 0.11 -repeat trop -Give 1x 10mg IV labetolol. -monitor BP -resume Home BP meds -Echo 04/05 unremarkable. EF 70% -EKG: NSR rate of 89 bpm, LAD, no ST elevation or depression, t wave inversion aVL and I, t waves upright -tele -Discussed case with cardio Dr. Luu over the phone. Agrees with plan to repeat trop and control BP. #Mildy Elevated Trops -0.11 first set -asymptomatic -likely demand -repeat trop #RONNA -possible CKD -cr likely at baseline -avoid nephrotoxins #FEN -NS @ 75 -monitor -sodium diet Tele obs. Visit type - Emergency Visit Emergency Visit: Yes ED Registration Date: 07/19/18 Care time: The patient presented to the Emergency Department on the above date and was hospitalized for further evaluation of their emergent condition. - New Patient This patient is new to me today: Yes Date on this admission: 07/20/18 - Critical Care Critical Care patient: No
[2018-07-18] MEDS ORDERED: SODIUM CHLORIDE 1,000 ML IV SCH (16:00)
[2018-07-18] MEDS ORDERED: hydrALAZINE HCL 20 MG/ML VIAL IVPUSH ONE (17:47)
[2018-07-18] MEDS ORDERED: hydrALAZINE HCL 20 MG/ML VIAL ONE (18:11)
--- NOTE | 2018-07-18 19:09 | EKG ---
Test Reason : Blood Pressure : / mmHG Vent. Rate : 089 BPM Atrial Rate : 089 BPM P-R Int : 178 ms QRS Dur : 094 ms QT Int : 392 ms P-R-T Axes : 034 -33 073 degrees QTc Int : 476 ms NORMAL SINUS RHYTHM POSSIBLE LEFT ATRIAL ENLARGEMENT LEFT AXIS DEVIATION LEFT VENTRICULAR HYPERTROPHY INFERIOR INFARCT , AGE UNDETERMINED CANNOT RULE OUT ANTERIOR INFARCT , AGE UNDETERMINED ABNORMAL ECG WHEN COMPARED WITH ECG OF 19-MAR-2018 12:30, HI INTERVAL HAS DECREASED INCOMPLETE RIGHT BUNDLE BRANCH BLOCK IS NO LONGER PRESENT Confirmed by CLAUDINE KIRAN, ROSANNA ([id number]) on 07/18/2018 7:09:23 PM Referred By: Confirmed By:ROSANNA CHOW MD
[2018-07-18] MEDS ORDERED: SODIUM CHLORIDE 0.45% 1,000 ML IV SCH (20:15)
[2018-07-18] MEDS ORDERED: CARVEDILOL 12.5 MG TABLET (FP) ONE (22:13)
[2018-07-18] MEDS ORDERED: NIFEdipine E.R. 30 MG TABLET (FP) ONE (22:13)
[2018-07-18] MEDS: CARVEDILOL 12.5 MG TABLET (FP) PO SCH (22:24)
[2018-07-19 00:20] VITALS: BMI 30.9
[2018-07-19 06:23] LABS: BASO % 0.7 % (0-2.0); EOS % 5.9 % (0-4.5); HEMOGLOBIN 12.3 GM/dL (11.7-16.9); LYMPH % 28.9 % (8-40); MCH 24.9 pg (25.7-33.7); MCHC 33.1 g/dl (32.0-35.9); MEAN CELL VOLUME 75.2 fl (80-96); MEAN PLT VOLUME 8.6 fl (7.5-11.1); NEUT % 55.5 % (42.8-82.8); PLATELET COUNT 178 K/MM3 (134-434); RBC 4.93 M/mm3 (4.00-5.60); RDW 17.2 % (11.9-15.9); WHITE BLOOD COUNT 6.1 K/mm3 (4.0-10.0)
[2018-07-19 07:34] LABS: ALBUMIN 3.3 g/dl (3.4-5.0); ALK PHOS 81 U/L (45-117); ANION GAP 9 MMOL/L (8-16); BILIRUBIN,TOTAL 1.1 mg/dL (0.2-1); BLOOD UREA NITROGEN 16 mg/dL (7-18); CALCIUM 8.6 mg/dL (8.5-10.1); CHLORIDE 106 mmol/L (98-107); CO2 29 mmol/L (21-32); CREATININE 1.8 mg/dL (0.55-1.3); GLUCOSE,RANDOM 88 mg/dL (74-106); MAGNESIUM 2.1 mg/dL (1.8-2.4); PHOSPHOROUS 2.3 mg/dL (2.5-4.9); SGOT/AST 21 U/L (15-37); SGPT/ALT 17 U/L (13-61); SODIUM 144 mmol/L (136-145)
[2018-07-19] MEDS ORDERED: POTASSIUM CHLORIDE TABS 20 MEQ TABLET.ER (FP) PO ONE ×3 (08:48→16:29)
[2018-07-19] MEDS: CARVEDILOL 12.5 MG TABLET (FP) PO SCH (09:29)
[2018-07-19] MEDS ORDERED: NIFEdipine E.R 60 MG TABLET (UD) PO SCH (10:00)
[2018-07-19] MEDS: NIFEdipine E.R. 90 MG TABLET (FP) PO SCH (11:00)
--- NOTE | 2018-07-19 11:18 | CON.CARD ---
Consult Consult Specialty:: Cardiology Referred by:: Hospitalist Medicine Reason for Consultation:: Hypertensive urgency, subendocardial ischemia - History of Present Illness Chief Complaint: Hypertensive urgency History of Present Illness: Pt is a 62yo m with PMH of HTN, CKD, referred for elevated BP 204/81. He denies chest pain, dyspnea, palpitations, near or true syncope, orthopnea, PND, headache or LE edema. Reports compliance with diet and meds, denies NSAID use. - History Source History Provided By: Patient Limitations to Obtaining History: No Limitations - Past Medical History Cardio/Vascular: Yes: HTN - Alcohol/Substance Use Hx Alcohol Use: No - Smoking History Smoking history: Never smoked Have you smoked in the past 12 months: No Home Medications - Allergies Allergies/Adverse Reactions: Allergies Allergy/AdvReac Type Severity Reaction Status Date / Time No Known Allergies Allergy Verified 07/18/18 11:16 - Home Medications Home Medications: Ambulatory Orders Carvedilol [Coreg -] 12.5 mg PO BID #60 tablet 03/22/18 Nifedipine ER [Procardia XL -] 60 mg PO DAILY #30 tab.er.24 03/22/18 Family Disease History - Family Disease History Family Disease History: Other: Brother (htn), Sister (htn), Son (htn) Vital Signs: Vital Signs Temperature 98.3 F 07/19/18 06:00 Pulse Rate 71 07/19/18 09:44 Respiratory Rate 18 07/19/18 09:44 Blood Pressure 171/88 H 07/19/18 09:44 O2 Sat by Pulse Oximetry (%) 99 07/19/18 07:16 Constitutional: Yes: No Distress, Calm Neck: Yes: Supple Respiratory: Yes: Regular, CTA Bilaterally Gastrointestinal: Yes: Normal Bowel Sounds, Soft Cardiovascular: Yes: Regular Rate and Rhythm JVD: No Carotid Bruit: No Heart Sounds: Yes: S1, S2 Edema: No - Other Data Labs, Other Data: CBC, BMP 07/19/18 05:30 07/19/18 05:30 INR, PTT INR 1.03 (0.83-1.09) 07/18/18 12:06 Troponin, BNP 07/18/18 07/18/18 07/18/18 12:06 15:30 22:48 Troponin I 0.11 H 0.12 H 0.14 H 07/19/18 05:30 Troponin I 0.14 H Troponin, BNP 07/18/18 07/18/18 07/18/18 12:06 15:30 22:48 Troponin I 0.11 H 0.12 H 0.14 H 07/19/18 05:30 Troponin I 0.14 H NSR @ 89 LAE, LVH, LAD Ejection Fraction %: LVEF > or = 40 % Imaging - Results Chest X-ray: Report Reviewed (NAD) Cat Scan: Report Reviewed (HCT: Small chronic left thalamic and small chronic left frontal infarcts with SVID) Problem List - Problems (1) Cerebrovascular disease Code(s): I67.9 - CEREBROVASCULAR DISEASE, UNSPECIFIED (2) [id number] kidney injury Code(s): N17.9 - ACUTE KIDNEY FAILURE, UNSPECIFIED; N18.9 - CHRONIC KIDNEY DISEASE, UNSPECIFIED Qualifiers: Acute renal failure type: unspecified (3) Demand ischemia Code(s): I24.8 - OTHER FORMS OF ACUTE ISCHEMIC HEART DISEASE (4) Hypertensive urgency Code(s): I16.0 - HYPERTENSIVE URGENCY (5) Hypokalemia Code(s): E87.6 - HYPOKALEMIA Assessment/Plan Echo: 03/20/2018 Normal LV size with mod cLVH, hyperdynamic LVEF 70%, mild LAE, mild AR, TR 1. Hypertensive cardiovascular disease, labile blood pressure uncontrolled 2. CAD angina pectoris with evidence of demand ischemia 3. Diastolic LV dysfunction with class 0 NYHA classification LV failure 4. CKD 5. Hypokalemia 6. Cerebrovascular disease PLAN: 1. Trops have plateaued, increased carvedilol 25 bid 2. Increased Procardia XL 90 qd, add ASA 81 qd 3. Ideally should be on ACEI or ARBS unless contraindicated, pending renal function stabilization 4. Correction of Hypokalemia 5. Thank you for consultative opportunity
[2018-07-19] MEDS ORDERED: CARVEDILOL 12.5 MG TABLET (FP) PO ONE (11:31)
[2018-07-19] MEDS: ASPIRIN 81 MG CHEWABLE TABLETS PO SCH (11:39)
[2018-07-19] MEDS: HEPARIN NA (PORCINE) 5,000 UNITS/ML 1ML VIAL SQ SCH ×2 (15:23→21:09)
--- NOTE | 2018-07-19 16:03 | PN ---
Physical Exam: SUBJECTIVE: Patient seen and examined at bedside this morning. Patient is a 62 year old male with past medical history of HTN, CKD, presented from his PCP's office due to elevated BP of 204/81. At the ED, patient was noted to have Trop of 0.11 and plateaued at 0.14. Patient denies headache, dizziness, chest pain, SOB, palpitations, abdominal pain, diarrhea or urinary symptoms. OBJECTIVE: Vital Signs Temperature 98.6 F 07/19/18 14:00 Pulse Rate 66 07/19/18 14:00 Respiratory Rate 20 07/19/18 14:00 Blood Pressure 148/88 07/19/18 14:00 O2 Sat by Pulse Oximetry (%) 99 07/19/18 07:16 GENERAL: The patient is awake, alert, and fully oriented, in no acute distress. HEAD: Normal with no signs of trauma. EYES: PERRLA, EOMI, sclera anicteric, conjunctiva clear. ENT: Ears normal, nares patent, oropharynx clear without exudates, moist mucous membranes. NECK: Trachea midline, full range of motion, supple. LUNGS: Breath sounds equal, clear to auscultation bilaterally. HEART: Regular rate and rhythm, S1, S2 without murmur, rub or gallop. ABDOMEN: Soft, nontender, nondistended, normoactive bowel sounds. EXTREMITIES: 2+ pulses, warm, well-perfused, no edema. NEUROLOGICAL: Cranial nerves II through XII grossly intact. Normal speech, gait not observed. PSYCH: Normal mood, normal affect. SKIN: Warm, dry, normal turgor, no rashes or lesions noted Laboratory Results - last 24 hr 07/18/18 07/18/18 07/19/18 15:30 22:48 05:30 WBC 6.1 RBC 4.93 Hgb 12.3 Hct 37.0 MCV 75.2 L MCH 24.9 L MCHC 33.1 RDW 17.2 H Plt Count 178 MPV 8.6 Absolute Neuts (auto) 3.4 Neutrophils % 55.5 D Lymphocytes % 28.9 D Monocytes % 9.0 Eosinophils % 5.9 H Basophils % 0.7 Nucleated RBC % 0 Sodium Potassium Chloride Carbon Dioxide Anion Gap BUN Creatinine Creat Clearance w eGFR Random Glucose Calcium Phosphorus Magnesium Total Bilirubin AST ALT Alkaline Phosphatase Creatine Kinase 208 282 Creatine Kinase Index 0.9 0.7 CK-MB (CK-2) 1.9 2.0 Troponin I 0.12 H 0.14 H Total Protein Albumin 07/19/18 07/19/18 05:30 05:30 WBC RBC Hgb Hct MCV MCH MCHC RDW Plt Count MPV Absolute Neuts (auto) Neutrophils % Lymphocytes % Monocytes % Eosinophils % Basophils % Nucleated RBC % Sodium 144 Potassium 3.0 L Chloride 106 Carbon Dioxide 29 Anion Gap 9 BUN 16 Creatinine 1.8 H Creat Clearance w eGFR 38.18 Random Glucose 88 Calcium 8.6 Phosphorus 2.3 L Magnesium 2.1 Total Bilirubin 1.1 H AST 21 ALT 17 Alkaline Phosphatase 81 Creatine Kinase Creatine Kinase Index CK-MB (CK-2) Troponin I 0.14 H Total Protein 7.0 Albumin 3.3 L Active Medications Generic Name Dose Route Start Last Admin Trade Name Freq PRN Reason Stop Dose Admin Aspirin 81 mg 07/19/18 11:45 07/19/18 11:39 Asa - PO 81 mg DAILY JESSI Administration Carvedilol 25 mg 07/19/18 11:31 Coreg - PO BID JESSI Heparin Sodium (Porcine) 5,000 unit 07/19/18 14:00 07/19/18 15:23 Heparin - SQ 5,000 unit TID JESSI Administration Nifedipine 90 mg 07/19/18 10:00 07/19/18 11:00 Procardia Xl - PO 90 mg DAILY JESSI Administration ASSESSMENT/PLAN: Patient is a 62 year old male with past medical history of HTN, CKD, presented from his PCP's office due to elevated BP of 204/81. #Hypertensive emergency -IV Labetolol and Hydralazine given overnight -Cardiology (Dr. Chanel) consulted. Recommendations appreciated. -Nifedipine increased from 60mg to 90mg daily -Carvedilol increased from 12.5mg to 25mg BID -ASA 81 mg daily started. -Will continue to monitor BP #Elevated troponin -Troponin plateaued at 0.14 -likely 2/2 demand ischemia #CKD -BUN/Cr improved this morning, at baseline -Avoid nephrotoxic agents such as NSAIDs, aminoglycosides, contrast dyes #FEN -Not on any standing fluids -HypoK, repleted -Routine bmp monitoring -Sodium restricted diet #Prophylaxis -Heparin 5000units sq tid #Disposition -full code -admit to tele Visit type - Emergency Visit Emergency Visit: Yes ED Registration Date: 07/19/18 Care time: The patient presented to the Emergency Department on the above date and was hospitalized for further evaluation of their emergent condition. - New Patient This patient is new to me today: Yes Date on this admission: 07/19/18 - Critical Care Critical Care patient: No
--- NOTE | 2018-07-19 16:19 | PN ---
Teaching Attending Note Name of Resident: Stacey Ruiz ATTENDING PHYSICIAN STATEMENT I saw and evaluated the patient. I reviewed the resident's note and discussed the case with the resident. I agree with the resident's findings and plan as documented. SUBJECTIVE: Patient feels better with no acute distress. OBJECTIVE: Vital Signs Temperature 98.6 F 07/19/18 14:00 Pulse Rate 66 07/19/18 14:00 Respiratory Rate 20 07/19/18 14:00 Blood Pressure 148/88 07/19/18 14:00 O2 Sat by Pulse Oximetry (%) 99 07/19/18 07:16 GENERAL: The patient is in no acute distress. HEAD: Normal with no signs of trauma. EYES: PERRLA, EOMI, sclera anicteric, conjunctiva clear. ENT: Ears normal, oropharynx clear without exudates. Moist mucous membranes. NECK: Normal range of motion, supple without lymphadenopathy, JVD, or masses. LUNGS: Breath sounds equal, clear to auscultation bilaterally. No wheezes, and no crackles. HEART: DIRK 2/6. RRR, normal S1 and S2 without rub or gallop. ABDOMEN: Soft, nontender, normoactive bowel sounds. No guarding, no rebound. EXTREMITIES: Normal range of motion, no edema. No clubbing or cyanosis. No erythema, or tenderness. NEUROLOGICAL: Cranial nerves II through XII grossly intact. Normal speech. No focal neurological deficits. MUSCULOSKELETAL: Back non-tender to palpation, no CVA tenderness SKIN: Warm, Dry, normal turgor, no rashes or lesions noted. CBCD WBC 6.1 K/mm3 (4.0-10.0) 07/19/18 05:30 RBC 4.93 M/mm3 (4.00-5.60) 07/19/18 05:30 Hgb 12.3 GM/dL (11.7-16.9) 07/19/18 05:30 Hct 37.0 % (35.4-49) 07/19/18 05:30 MCV 75.2 fl (80-96) L 07/19/18 05:30 MCHC 33.1 g/dl (32.0-35.9) 07/19/18 05:30 RDW 17.2 % (11.9-15.9) H 07/19/18 05:30 Plt Count 178 K/MM3 (134-434) 07/19/18 05:30 MPV 8.6 fl (7.5-11.1) 07/19/18 05:30 CMP Sodium 144 mmol/L (136-145) 07/19/18 05:30 Potassium 3.0 mmol/L (3.5-5.1) L 07/19/18 05:30 Chloride 106 mmol/L (98-107) 07/19/18 05:30 Carbon Dioxide 29 mmol/L (21-32) 07/19/18 05:30 Anion Gap 9 MMOL/L (8-16) 07/19/18 05:30 BUN 16 mg/dL (7-18) 07/19/18 05:30 Creatinine 1.8 mg/dL (0.55-1.3) H 07/19/18 05:30 Creat Clearance w eGFR 38.18 (>60) 07/19/18 05:30 Random Glucose 88 mg/dL (74-106) 07/19/18 05:30 Calcium 8.6 mg/dL (8.5-10.1) 07/19/18 05:30 Total Bilirubin 1.1 mg/dL (0.2-1) H 07/19/18 05:30 AST 21 U/L (15-37) 07/19/18 05:30 ALT 17 U/L (13-61) 07/19/18 05:30 Alkaline Phosphatase 81 U/L (45-117) 07/19/18 05:30 Total Protein 7.0 g/dl (6.4-8.2) 07/19/18 05:30 Albumin 3.3 g/dl (3.4-5.0) L 07/19/18 05:30 CARDIAC ENZYMES Creatine Kinase 282 U/L (26-308) 07/18/18 22:48 Troponin I 0.14 ng/ml (0.00-0.05) H 07/19/18 05:30 Current Medications Generic Name Dose Route Start Last Admin Trade Name Freq PRN Reason Stop Dose Admin Aspirin 81 mg 07/19/18 11:45 07/19/18 11:39 Asa - PO 81 mg DAILY JESSI Administration Carvedilol 25 mg 07/19/18 11:31 Coreg - PO BID [facility] Heparin Sodium (Porcine) 5,000 unit 07/19/18 14:00 07/19/18 15:23 Heparin - SQ 5,000 unit TID JESSI Administration Nifedipine 90 mg 07/19/18 10:00 07/19/18 11:00 Procardia Xl - PO 90 mg DAILY JESSI Administration Home Medications Medication Instructions Recorded Aspirin [ASA -] 81 mg PO DAILY #30 tab.chew 07/19/18 Carvedilol [Coreg -] 25 mg PO BID #60 tablet 07/19/18 Nifedipine ER [Procardia XL -] 90 mg PO DAILY #30 tab.er.24 07/19/[address]: small chronic left thalamic infarct, small left frontal subcortical white matter infarct. EKG: NSR rate of 89 bpm, LAD, no ST elevation or depression, t wave inversion aVL and I, t waves upright Assessment and plan: Patient is a 62 yo Male with a PMHx of HTN, possible CKD, was sent by his PCP since was found to have elevated BP of 204/81 in the office. # Hypertensive emergency: ON coreg, increased the dose of procarida to 90xl , continue to monitor the blood pressure. # Elevated Troponin: 0.11 1st set, will repeat the trop. Echo 04/05 unremarkable. EF 70% case discussed with cardio Dr. Luu over the phone. Agrees with plan, will repeat trop and control BP. #RONNA over CKD: avoid nephrotoxins, IVF 1/2 NS # Hypokalemia will replete. DVT Px: heparin sq. Laboratory Tests 07/18/18 07/18/18 07/18/18 12:06 15:30 22:48 Troponin I 0.11 H 0.12 H 0.14 H 07/19/18 05:30 Troponin I 0.14 H
[2018-07-19] MEDS: CARVEDILOL 25 MG TABLET (FP) PO SCH (21:08)
[2018-07-20] MEDS: HEPARIN NA (PORCINE) 5,000 UNITS/ML 1ML VIAL SQ SCH ×3 (06:04→21:27)
[2018-07-20 07:30] LABS: ANION GAP 9 MMOL/L (8-16); BLOOD UREA NITROGEN 23 mg/dL (7-18); CALCIUM 8.8 mg/dL (8.5-10.1); CHLORIDE 107 mmol/L (98-107); CO2 26 mmol/L (21-32); CREATININE 1.9 mg/dL (0.55-1.3); GLUCOSE,RANDOM 89 mg/dL (74-106); MAGNESIUM 2.1 mg/dL (1.8-2.4); PHOSPHOROUS 2.8 mg/dL (2.5-4.9); POTASSIUM 3.2 mmol/L (3.5-5.1); SODIUM 142 mmol/L (136-145)
[2018-07-20] MEDS ORDERED: POTASSIUM CHLORIDE TABS 20 MEQ TABLET.ER (FP) PO ONE (08:47)
[2018-07-20] MEDS: ASPIRIN 81 MG CHEWABLE TABLETS PO SCH ×2 (08:53→10:13)
[2018-07-20] MEDS: NIFEdipine E.R. 90 MG TABLET (FP) PO SCH ×2 (08:53→10:13)
[2018-07-20] MEDS: CARVEDILOL 25 MG TABLET (FP) PO SCH ×3 (08:53→21:27)
[2018-07-20] MEDS ORDERED: LOSARTAN POTASSIUM 50 MG TABLET (FP) PO ONE (11:39)
--- NOTE | 2018-07-20 11:43 | PN ---
Progress Note, Physician History of Present Illness: BP remains elevated, losartan 50 qd started. Denies chest pain, dyspnea, headaches. - Current Medication List Current Medications: Active Medications Aspirin (Asa -) 81 mg PO DAILY [facility] Last Admin: 07/20/18 10:13 Dose: Not Given Carvedilol (Coreg -) 25 mg PO BID [facility] Last Admin: 07/20/18 10:13 Dose: Not Given Heparin Sodium (Porcine) (Heparin -) 5,000 unit SQ TID [facility] Last Admin: 07/20/18 06:04 Dose: 5,000 unit Losartan Potassium (Cozaar -) 50 mg PO ONCE ONE Stop: 07/20/18 11:40 Losartan Potassium (Cozaar -) 50 mg PO DAILY [facility] Nifedipine (Procardia Xl -) 90 mg PO DAILY [facility] Last Admin: 07/20/18 10:13 Dose: Not Given - Objective Vital Signs: Vital Signs Temperature 98 F 07/20/18 08:55 Pulse Rate 60 07/20/18 10:42 Respiratory Rate 18 07/20/18 08:55 Blood Pressure 186/108 H 07/20/18 10:42 O2 Sat by Pulse Oximetry (%) 96 07/19/18 19:47 Constitutional: Yes: No Distress, Calm Neck: Yes: Supple Cardiovascular: Yes: Regular Rate and Rhythm Respiratory: Yes: Regular, CTA Bilaterally Gastrointestinal: Yes: Normal Bowel Sounds, Soft Edema: No Labs: CBC, BMP 07/19/18 05:30 07/20/18 05:30 INR, PTT INR 1.03 (0.83-1.09) 07/18/18 12:06 - ....Imaging EKG: Report Reviewed (Tele: SR) Problem List - Problems (1) Cerebrovascular disease Code(s): I67.9 - CEREBROVASCULAR DISEASE, UNSPECIFIED (2) [id number] kidney injury Code(s): N17.9 - ACUTE KIDNEY FAILURE, UNSPECIFIED; N18.9 - CHRONIC KIDNEY DISEASE, UNSPECIFIED Qualifiers: Acute renal failure type: unspecified (3) Demand ischemia Code(s): I24.8 - OTHER FORMS OF ACUTE ISCHEMIC HEART DISEASE (4) Hypertensive urgency Code(s): I16.0 - HYPERTENSIVE URGENCY (5) Hypokalemia Code(s): E87.6 - HYPOKALEMIA Assessment/Plan Echo: 03/20/2018 Normal LV size with mod cLVH, hyperdynamic LVEF 70%, mild LAE, mild AR, TR 1. Hypertensive cardiovascular disease, labile blood pressure uncontrolled 2. CAD angina pectoris with evidence of demand ischemia 3. Diastolic LV dysfunction with class 0 NYHA classification LV failure 4. CKD 5. Hypokalemia 6. Cerebrovascular disease PLAN: 1. Trops have plateaued, continue carvedilol 25 bid 2. Continue Procardia XL 90 qd, ASA 81 qd and added losartan 50 qd given renal function stable 3. Correction of Hypokalemia
--- NOTE | 2018-07-20 12:56 | PN ---
Physical Exam: SUBJECTIVE: Patient seen and examined at bedside this morning. No acute events overnight. Patient was still hypertensive this morning. Denies fever, chills, headache, dizziness, chest pain, SOB, palpitations, abdominal pain. OBJECTIVE: Vital Signs Period Temp Pulse Resp BP Sys/Klein Pulse Ox Last 24 Hr 97.9 F-98.6 F 60-71 18-20 144-186/88-112 96-98 GENERAL: The patient is awake, alert, and fully oriented, in no acute distress. HEAD: Normal with no signs of trauma. EYES: PERRLA, EOMI, sclera anicteric, conjunctiva clear. ENT: Ears normal, nares patent, oropharynx clear without exudates, moist mucous membranes. NECK: Trachea midline, full range of motion, supple. LUNGS: Breath sounds equal, clear to auscultation bilaterally. HEART: Regular rate and rhythm, S1, S2 without murmur, rub or gallop. ABDOMEN: Soft, nontender, nondistended, normoactive bowel sounds. EXTREMITIES: 2+ pulses, warm, well-perfused, no edema. NEUROLOGICAL: Cranial nerves II through XII grossly intact. Normal speech, gait not observed. PSYCH: Normal mood, normal affect. SKIN: Warm, dry, normal turgor, no rashes or lesions noted Laboratory Results - last 24 hr 07/20/18 05:30 Sodium 142 Potassium 3.2 L Chloride 107 Carbon Dioxide 26 Anion Gap 9 BUN 23 H Creatinine 1.9 H Creat Clearance w eGFR 35.87 Random Glucose 89 Calcium 8.8 Phosphorus 2.8 Magnesium 2.1 Active Medications Generic Name Dose Route Start Last Admin Trade Name Freq PRN Reason Stop Dose Admin Aspirin 81 mg 07/19/18 11:45 07/20/18 10:13 Asa - PO Not Given DAILY JESSI Carvedilol 25 mg 07/19/18 11:31 07/20/18 10:13 Coreg - PO Not Given BID [facility]CLUD[facility] Heparin Sodium (Porcine) 5,000 unit 07/19/18 14:00 07/20/18 06:04 Heparin - SQ 5,000 unit TID [facility]CLUDES [facility] Administration Losartan Potassium 50 mg 07/21/18 10:00 Cozaar - PO DAILY JESSI Nifedipine 90 mg 07/19/18 10:00 07/20/18 10:13 Procardia Xl - PO Not Given DAILY [facility]CLUDES [facility] ASSESSMENT/PLAN: Patient is a 62 year old male with past medical history of HTN, CKD, presented from his PCP's office due to elevated BP of 204/81. #Hypertensive emergency -IV Labetolol and Hydralazine given at the ED -Cardiology (Dr. Chanel) consulted. Recommendations appreciated. -Nifedipine increased from 60mg to 90mg daily -Carvedilol increased from 12.5mg to 25mg BID -ASA 81 mg daily started. -Losartan 50mg daily added. -Will continue to monitor BP #Elevated troponin -Troponin plateaued at 0.14 -likely 2/2 demand ischemia #CKD -BUN/Cr improved this morning, at baseline -Avoid nephrotoxic agents such as NSAIDs, aminoglycosides, contrast dyes #FEN -Not on any standing fluids -HypoK, repleted -Routine bmp monitoring -Sodium restricted diet #Prophylaxis -Heparin 5000units sq tid #Disposition -full code -admit to tele Visit type - Emergency Visit Emergency Visit: Yes ED Registration Date: 07/19/18 Care time: The patient presented to the Emergency Department on the above date and was hospitalized for further evaluation of their emergent condition. - New Patient This patient is new to me today: No - Critical Care Critical Care patient: No
--- NOTE | 2018-07-20 18:10 | PN ---
Teaching Attending Note Name of Resident: Stacey Ruiz ATTENDING PHYSICIAN STATEMENT I saw and evaluated the patient. I reviewed the resident's note and discussed the case with the resident. I agree with the resident's findings and plan as documented. SUBJECTIVE: Patient has no new complain. OBJECTIVE: Vital Signs Temperature 98 F 07/20/18 16:49 Pulse Rate 62 07/20/18 16:49 Respiratory Rate 18 07/20/18 16:49 Blood Pressure 172/96 H 07/20/18 16:49 O2 Sat by Pulse Oximetry (%) 98 07/20/18 09:00 GENERAL: The patient is in no acute distress. HEAD: Normal with no signs of trauma. EYES: PERRLA, EOMI, sclera anicteric, conjunctiva clear. ENT: Ears normal, oropharynx clear without exudates. Moist mucous membranes. NECK: Normal range of motion, supple without lymphadenopathy, JVD, or masses. LUNGS: Breath sounds equal, clear to auscultation bilaterally. No wheezes, and no crackles. HEART: DIRK 2/6. RRR, normal S1 and S2 without rub or gallop. ABDOMEN: Soft, nontender, normoactive bowel sounds. No guarding, no rebound. EXTREMITIES: Normal range of motion, no edema. No clubbing or cyanosis. No erythema, or tenderness. NEUROLOGICAL: Cranial nerves II through XII grossly intact. Normal speech. No focal neurological deficits. MUSCULOSKELETAL: Back non-tender to palpation, no CVA tenderness SKIN: Warm, Dry, normal turgor, no rashes or lesions noted. CBCD WBC 6.1 K/mm3 (4.0-10.0) 07/19/18 05:30 RBC 4.93 M/mm3 (4.00-5.60) 07/19/18 05:30 Hgb 12.3 GM/dL (11.7-16.9) 07/19/18 05:30 Hct 37.0 % (35.4-49) 07/19/18 05:30 MCV 75.2 fl (80-96) L 07/19/18 05:30 MCHC 33.1 g/dl (32.0-35.9) 07/19/18 05:30 RDW 17.2 % (11.9-15.9) H 07/19/18 05:30 Plt Count 178 K/MM3 (134-434) 07/19/18 05:30 MPV 8.6 fl (7.5-11.1) 07/19/18 05:30 CMP Sodium 142 mmol/L (136-145) 07/20/18 05:30 Potassium 3.2 mmol/L (3.5-5.1) L 07/20/18 05:30 Chloride 107 mmol/L (98-107) 07/20/18 05:30 Carbon Dioxide 26 mmol/L (21-32) 07/20/18 05:30 Anion Gap 9 MMOL/L (8-16) 07/20/18 05:30 BUN 23 mg/dL (7-18) H 07/20/18 05:30 Creatinine 1.9 mg/dL (0.55-1.3) H 07/20/18 05:30 Creat Clearance w eGFR 35.87 (>60) 07/20/18 05:30 Random Glucose 89 mg/dL (74-106) 07/20/18 05:30 Calcium 8.8 mg/dL (8.5-10.1) 07/20/18 05:30 Total Bilirubin 1.1 mg/dL (0.2-1) H 07/19/18 05:30 AST 21 U/L (15-37) 07/19/18 05:30 ALT 17 U/L (13-61) 07/19/18 05:30 Alkaline Phosphatase 81 U/L (45-117) 07/19/18 05:30 Total Protein 7.0 g/dl (6.4-8.2) 07/19/18 05:30 Albumin 3.3 g/dl (3.4-5.0) L 07/19/18 05:30 CARDIAC ENZYMES Creatine Kinase 282 U/L (26-308) 07/18/18 22:48 Troponin I 0.14 ng/ml (0.00-0.05) H 07/19/18 05:30 Current Medications Generic Name Dose Route Start Last Admin Trade Name Freq PRN Reason Stop Dose Admin Aspirin 81 mg 07/19/18 11:45 07/20/18 10:13 Asa - PO Not Given DAILY [facility] Carvedilol 25 mg 07/19/18 11:31 07/20/18 10:13 Coreg - PO Not Given BID [facility] Heparin Sodium (Porcine) 5,000 unit 07/19/18 14:00 07/20/18 14:29 Heparin - SQ 5,000 unit TID [facility] Administration Losartan Potassium 50 mg 07/21/18 10:00 Cozaar - PO DAILY JESSI Nifedipine 90 mg 07/19/18 10:00 07/20/18 10:13 Procardia Xl - PO Not Given DAILY [facility] Potassium Chloride 40 meq 07/21/18 10:00 K-Dur - PO DAILY [facility] Home Medications Medication Instructions Recorded Aspirin [ASA -] 81 mg PO DAILY #30 tab.chew 07/19/18 Carvedilol [Coreg -] 25 mg PO BID #60 tablet 07/19/18 Nifedipine ER [Procardia XL -] 90 mg PO DAILY #30 tab.er.24 07/19/18 Laboratory Tests 07/18/18 07/18/18 07/18/18 12:06 15:30 22:48 Troponin I 0.11 H 0.12 H 0.14 H 07/19/18 05:30 Troponin I 0.[address]: small chronic left thalamic infarct, small left frontal subcortical white matter infarct. EKG: NSR rate of 89 bpm, LAD, no ST elevation or depression, t wave inversion aVL and I, t waves upright Assessment and plan: Patient is a 62 yo Male with a PMHx of HTN, possible CKD, was sent by his PCP since was found to have elevated BP of 204/81 in the office. # Hypertensive emergency: ON coreg, increased the dose of procardia to 90xl, added losartan 50mg po daily, will continue to monitor the blood pressure. # Elevated Troponin: 0.11--> 0.14. Echo 04/05 unremarkable. EF 70%, cardiology on the case. #RONNA over CKD: avoid nephrotoxins, stable now, at the base. # Hypokalemia will replete. DVT Px: heparin sq.
[2018-07-21] MEDS: HEPARIN NA (PORCINE) 5,000 UNITS/ML 1ML VIAL SQ SCH ×2 (06:45→14:21)
[2018-07-21 08:36] LABS: ANION GAP 8 MMOL/L (8-16); BLOOD UREA NITROGEN 26 mg/dL (7-18); CALCIUM 8.4 mg/dL (8.5-10.1); CHLORIDE 107 mmol/L (98-107); CO2 26 mmol/L (21-32); CREATININE 1.9 mg/dL (0.55-1.3); GLUCOSE,RANDOM 82 mg/dL (74-106); MAGNESIUM 2.2 mg/dL (1.8-2.4); PHOSPHOROUS 2.6 mg/dL (2.5-4.9); POTASSIUM 3.4 mmol/L (3.5-5.1); SODIUM 141 mmol/L (136-145)
[2018-07-21] MEDS: NIFEdipine E.R. 90 MG TABLET (FP) PO SCH (09:46)
[2018-07-21] MEDS: CARVEDILOL 25 MG TABLET (FP) PO SCH (09:46)
[2018-07-21] MEDS: ASPIRIN 81 MG CHEWABLE TABLETS PO SCH (09:46)
[2018-07-21] MEDS ORDERED: LOSARTAN POTASSIUM 50 MG TABLET (FP) PO SCH (10:00)
[2018-07-21] MEDS ORDERED: POTASSIUM CHLORIDE TABS 20 MEQ TABLET.ER (FP) PO SCH (10:00)
[2018-07-21] MEDS ORDERED: LISINOPRIL 5 MG TABLET (FP) PO SCH (10:00)
--- NOTE | 2018-07-21 11:39 | PN ---
Progress Note (short form) - Note Progress Note: Vital Signs Temperature 98.1 F 07/21/18 09:00 Pulse Rate 63 07/21/18 09:00 Respiratory Rate 18 07/21/18 09:18 Blood Pressure 167/103 H 07/21/18 09:18 O2 Sat by Pulse Oximetry (%) 97 07/21/18 09:00 GENERAL: The patient is in no acute distress. HEAD: Normal with no signs of trauma. EYES: PERRLA, EOMI, sclera anicteric, conjunctiva clear. ENT: Ears normal, oropharynx clear without exudates. Moist mucous membranes. NECK: Normal range of motion, supple without lymphadenopathy, JVD, or masses. LUNGS: Breath sounds equal, clear to auscultation bilaterally. No wheezes, and no crackles. HEART: DIRK 2/6. RRR, normal S1 and S2 without rub or gallop. ABDOMEN: Soft, nontender, normoactive bowel sounds. No guarding, no rebound. EXTREMITIES: Normal range of motion, no edema. No clubbing or cyanosis. No erythema, or tenderness. NEUROLOGICAL: Cranial nerves II through XII grossly intact. Normal speech. No focal neurological deficits. MUSCULOSKELETAL: Back non-tender to palpation, no CVA tenderness SKIN: Warm, Dry, normal turgor, no rashes or lesions noted. CBCD WBC 6.1 K/mm3 (4.0-10.0) 07/19/18 05:30 RBC 4.93 M/mm3 (4.00-5.60) 07/19/18 05:30 Hgb 12.3 GM/dL (11.7-16.9) 07/19/18 05:30 Hct 37.0 % (35.4-49) 07/19/18 05:30 MCV 75.2 fl (80-96) L 07/19/18 05:30 MCHC 33.1 g/dl (32.0-35.9) 07/19/18 05:30 RDW 17.2 % (11.9-15.9) H 07/19/18 05:30 Plt Count 178 K/MM3 (134-434) 07/19/18 05:30 MPV 8.6 fl (7.5-11.1) 07/19/18 05:30 CMP Sodium 141 mmol/L (136-145) 07/21/18 05:25 Potassium 3.4 mmol/L (3.5-5.1) L 07/21/18 05:25 Chloride 107 mmol/L (98-107) 07/21/18 05:25 Carbon Dioxide 26 mmol/L (21-32) 07/21/18 05:25 Anion Gap 8 MMOL/L (8-16) 07/21/18 05:25 BUN 26 mg/dL (7-18) H 07/21/18 05:25 Creatinine 1.9 mg/dL (0.55-1.3) H 07/21/18 05:25 Creat Clearance w eGFR 35.87 (>60) 07/21/18 05:25 Random Glucose 82 mg/dL (74-106) 07/21/18 05:25 Calcium 8.4 mg/dL (8.5-10.1) L 07/21/18 05:25 Total Bilirubin 1.1 mg/dL (0.2-1) H 07/19/18 05:30 AST 21 U/L (15-37) 07/19/18 05:30 ALT 17 U/L (13-61) 07/19/18 05:30 Alkaline Phosphatase 81 U/L (45-117) 07/19/18 05:30 Total Protein 7.0 g/dl (6.4-8.2) 07/19/18 05:30 Albumin 3.3 g/dl (3.4-5.0) L 07/19/18 05:30 CARDIAC ENZYMES Creatine Kinase 282 U/L (26-308) 07/18/18 22:48 Troponin I 0.14 ng/ml (0.00-0.05) H 07/19/18 05:30 Current Medications Generic Name Dose Route Start Last Admin Trade Name Freq PRN Reason Stop Dose Admin Aspirin 81 mg 07/19/18 11:45 07/21/18 09:46 Asa - PO 81 mg DAILY JESSI Administration Carvedilol 25 mg 07/19/18 11:31 07/21/18 09:46 Coreg - PO 25 mg BID JESSI Administration Heparin Sodium (Porcine) 5,000 unit 07/19/18 14:00 07/21/18 06:45 Heparin - SQ 5,000 unit TID JESSI Administration Losartan Potassium 50 mg 07/21/18 10:00 07/21/18 09:47 Cozaar - PO 50 mg DAILY JESSI Administration Nifedipine 90 mg 07/19/18 10:00 07/21/18 09:46 Procardia Xl - PO 90 mg DAILY JESSI Administration Potassium Chloride 40 meq 07/21/18 10:00 07/21/18 09:46 K-Dur - PO 40 meq DAILY JESSI Administration Home Medications Medication Instructions Recorded Aspirin [ASA -] 81 mg PO DAILY #30 tab.chew 07/19/18 Carvedilol [Coreg -] 25 mg PO BID #60 tablet 07/19/18 Nifedipine ER [Procardia XL -] 90 mg PO DAILY #30 tab.er.24 07/19/[address]: small chronic left thalamic infarct, small left frontal subcortical white matter infarct. EKG: NSR rate of 89 bpm, LAD, no ST elevation or depression, t wave inversion aVL and I, t waves upright Assessment and plan: Patient is a 62 yo Male with a PMHx of HTN, possible CKD, was sent by his PCP since was found to have elevated BP of 204/81 in the office. # Hypertensive emergency: ON coreg, increased the dose of procardia to 90xl, added losartan 50mg po daily, will continue to monitor the blood pressure. # Elevated Troponin: 0.11--> 0.14. Echo 04/05 unremarkable. EF 70%, cardiology on the case. #RONNA over CKD: avoid nephrotoxins, stable now, at the base. # Hypokalemia will replete. DVT Px: heparin sq.
--- NOTE | 2018-07-21 12:13 | PN ---
Progress Note, Physician History of Present Illness: BP control improved on current antihypertensive regimen. Denies chest pain, dyspnea, headaches. - Current Medication List Current Medications: Active Medications Aspirin (Asa -) 81 mg PO DAILY [facility] Last Admin: 07/21/18 09:46 Dose: 81 mg Carvedilol (Coreg -) 25 mg PO BID [facility] Last Admin: 07/21/18 09:46 Dose: 25 mg Heparin Sodium (Porcine) (Heparin -) 5,000 unit SQ TID [facility] Last Admin: 07/21/18 06:45 Dose: 5,000 unit Losartan Potassium (Cozaar -) 50 mg PO DAILY [facility] Last Admin: 07/21/18 09:47 Dose: 50 mg Nifedipine (Procardia Xl -) 90 mg PO DAILY [facility] Last Admin: 07/21/18 09:46 Dose: 90 mg Potassium Chloride (K-Dur -) 40 meq PO DAILY [facility] Last Admin: 07/21/18 09:46 Dose: 40 meq - Objective Vital Signs: Vital Signs Temperature 98.1 F 07/21/18 09:00 Pulse Rate 63 07/21/18 09:00 Respiratory Rate 18 07/21/18 11:58 Blood Pressure 157/103 H 07/21/18 11:58 O2 Sat by Pulse Oximetry (%) 97 07/21/18 09:00 Constitutional: Yes: No Distress, Calm Neck: Yes: Supple Cardiovascular: Yes: Regular Rate and Rhythm Respiratory: Yes: Regular, CTA Bilaterally Gastrointestinal: Yes: Normal Bowel Sounds, Soft Edema: No Labs: CBC, BMP 07/19/18 05:30 07/21/18 05:25 INR, PTT INR 1.03 (0.83-1.09) 07/18/18 12:06 - ....Imaging EKG: Report Reviewed (Tele: NSR) Problem List - Problems (1) Cerebrovascular disease Code(s): I67.9 - CEREBROVASCULAR DISEASE, UNSPECIFIED (2) [id number] kidney injury Code(s): N17.9 - ACUTE KIDNEY FAILURE, UNSPECIFIED; N18.9 - CHRONIC KIDNEY DISEASE, UNSPECIFIED Qualifiers: Acute renal failure type: unspecified (3) Demand ischemia Code(s): I24.8 - OTHER FORMS OF ACUTE ISCHEMIC HEART DISEASE (4) Hypertensive urgency Code(s): I16.0 - HYPERTENSIVE URGENCY (5) Hypokalemia Code(s): E87.6 - HYPOKALEMIA Assessment/Plan Echo: 03/20/2018 Normal LV size with mod cLVH, hyperdynamic LVEF 70%, mild LAE, mild AR, TR 1. Hypertensive cardiovascular disease, labile blood pressure with improved control 2. CAD angina pectoris with evidence of demand ischemia 3. Diastolic LV dysfunction with class 0 NYHA classification LV failure 4. CKD 5. Hypokalemia 6. Cerebrovascular disease PLAN: 1. Trops have plateaued, continue carvedilol 25 bid 2. Continue Procardia XL 90 qd, ASA 81 qd and losartan 50 qd given renal function stable 3. Correction of Hypokalemia 4. D/c planning
[2018-07-21 15:37] VITALS: BP 160/111; PULSE 65; TEMP 98.2
[2018-07-21] MEDS ORDERED: POTASSIUM CHLORIDE TABS 20 MEQ TABLET.ER (FP) PO ONE (17:09)
--- NOTE | 2018-07-21 17:09 | DS ---
Physical Exam: SUBJECTIVE: Patient seen and examined Patient is feeling better with no acute distress, no shortness of breath. OBJECTIVE: Vital Signs Temperature 98.2 F 07/21/18 14:05 Pulse Rate 65 07/21/18 14:05 Respiratory Rate 18 07/21/18 14:05 Blood Pressure 160/111 H 07/21/18 14:05 O2 Sat by Pulse Oximetry (%) 97 07/21/18 09:00 Initial Vital Signs Temp Pulse Resp BP Pulse Ox 98.7 F 97 H 16 199/111 H 96 07/18/18 11:05 07/18/18 11:05 07/18/18 11:05 07/18/18 11:05 07/18/18 11:05 PHYSICAL EXAM GENERAL: The patient is awake, alert, and fully oriented, in no acute distress. HEAD: Normal with no signs of trauma. EYES: PERRL, extraocular movements intact, sclera anicteric, conjunctiva clear. ENT: Ears normal, nares patent, oropharynx clear without exudates, moist mucous membranes. NECK: Trachea midline, full range of motion, supple. LUNGS: Breath sounds equal, clear to auscultation bilaterally, no wheezes, no crackles, no accessory muscle use. HEART: Regular rate and rhythm, S1, S2 without murmur, rub or gallop. ABDOMEN: Soft, nontender, nondistended, normoactive bowel sounds, no guarding, no rebound, no hepatosplenomegaly, no masses. EXTREMITIES: 2+ pulses, warm, well-perfused, no edema. NEUROLOGICAL: Cranial nerves II through XII grossly intact. Normal speech, gait not observed. PSYCH: Normal mood, normal affect. SKIN: Warm, dry, normal turgor, no rashes or lesions noted. LABS WBC 6.1 K/mm3 (4.0-10.0) 07/19/18 05:30 RBC 4.93 M/mm3 (4.00-5.60) 07/19/18 05:30 Hgb 12.3 GM/dL (11.7-16.9) 07/19/18 05:30 Hct 37.0 % (35.4-49) 07/19/18 05:30 MCV 75.2 fl (80-96) L 07/19/18 05:30 MCHC 33.1 g/dl (32.0-35.9) 07/19/18 05:30 RDW 17.2 % (11.9-15.9) H 07/19/18 05:30 Plt Count 178 K/MM3 (134-434) 07/19/18 05:30 MPV 8.6 fl (7.5-11.1) 07/19/18 05:30 CMP Sodium 141 mmol/L (136-145) 07/21/18 05:25 Potassium 3.4 mmol/L (3.5-5.1) L 07/21/18 05:25 Chloride 107 mmol/L (98-107) 07/21/18 05:25 Carbon Dioxide 26 mmol/L (21-32) 07/21/18 05:25 Anion Gap 8 MMOL/L (8-16) 07/21/18 05:25 BUN 26 mg/dL (7-18) H 07/21/18 05:25 Creatinine 1.9 mg/dL (0.55-1.3) H 07/21/18 05:25 Creat Clearance w eGFR 35.87 (>60) 07/21/18 05:25 Random Glucose 82 mg/dL (74-106) 07/21/18 05:25 Calcium 8.4 mg/dL (8.5-10.1) L 07/21/18 05:25 Total Bilirubin 1.1 mg/dL (0.2-1) H 07/19/18 05:30 AST 21 U/L (15-37) 07/19/18 05:30 ALT 17 U/L (13-61) 07/19/18 05:30 Alkaline Phosphatase 81 U/L (45-117) 07/19/18 05:30 Total Protein 7.0 g/dl (6.4-8.2) 07/19/18 05:30 Albumin 3.3 g/dl (3.4-5.0) L 07/19/18 05:30 CARDIAC ENZYMES Creatine Kinase 282 U/L (26-308) 07/18/18 22:48 Troponin I 0.14 ng/ml (0.00-0.05) H 07/19/18 05:[address]: small chronic left thalamic infarct, small left frontal subcortical white matter infarct. EKG: NSR rate of 89 bpm, LAD, no ST elevation or depression, t wave inversion aVL and I, t waves upright HOSPITAL COURSE: Date of Admission:07/19/18 Date of Discharge: 07/21/18 Patient is a 62 yo Male with a PMHx of HTN, possible CKD, was sent by his PCP since was found to have elevated BP of 204/81 in the office. # Hypertensive emergency: ON coreg, increased the dose of procardia to 90xl, added losartan 50mg po daily, follow with the book coverer in a week. # Elevated Troponin: 0.11--> 0.14. Echo 04/05 unremarkable. EF 70%, cardiology on the case. #RONNA over CKD: avoid nephrotoxins, stable now, at the base. # Hypokalemia 3.4 today ,will give another dose of kdur 40meq before discharge. DVT Px: heparin sq. Minutes to complete discharge: 35 Discharge Summary Reason For Visit: HYPERTENSIVE URGENCY Current Active Problems Hypertensive emergency (Acute) Condition: Stable - Instructions Diet, Activity, Other Instructions: Your visit You were admitted to the hospital because you were noted to have elevated blood pressure. We have increased your Nifedipine and Carvedilol. You were also seen by the book coverer (Dr. Chanel) who recommended that you take aspirin as well. Care -Take your blood pressure measurement every morning. -Record it and bring it to your doctor's appointment when you follow-up with her. -Eat a healthy diet and drink plenty of water. -Exercise regularly. Medications Please take note of the following changes to your medications 1. Nifedipine 90mg daily. 2. Carvedilol 25mg twice a day. 3. Aspirin 81mg daily. Follow-up -Follow-up with your primary care doctor (Dr. Marsh) within 1 week. -Follow-up with the book coverer (Dr. Chanel) within 2 weeks. Additional info Call 911 or go to the ED if with any worsening fever, chills, chest pain, shortness of breath, headache, dizziness, nausea, vomiting, abdominal pain, diarrhea or any new concerns noted. Referrals: Jyoti Marsh MD [Primary Care Provider] - 1 Week Santhosh Chanel MD [Staff Physician] - 2 Weeks Disposition: HOME - Home Medications Comprehensive Discharge Medication List: Ambulatory Orders Aspirin [ASA -] 81 mg PO DAILY #30 tab.chew 07/19/18 Carvedilol [Coreg -] 25 mg PO BID #60 tablet 07/19/18 Nifedipine ER [Procardia XL -] 90 mg PO DAILY #30 tab.er.24 07/19/18 This patient is new to me today: Yes Date on this admission: 07/21/18 Emergency Visit: No Critical Care patient: No - Discharge Referral Referred to [facility] No
[2018-07-22] MEDS ORDERED: LOSARTAN POTASSIUM 50 MG TABLET (FP) PO SCH (10:00)
== END 2018-07-21 17:52 | disposition home or self-care (01) | DRG 469 ==
LOC: JER 11:01 → JERBED 14:28 → J4W 23:44 → OBSVTOIN 07-19 10:17
PROVIDERS: ADMIT Internal Medicine; ATTEND Internal Medicine
DX: N17.9 Acute kidney failure, unspecified (principal); I16.1 Hypertensive emergency; I24.8 Other forms of acute ischemic heart disease; I13.10 Hypertensive heart and chronic kidney disease without heart failure, with stage 1 through stage 4 chronic kidney disease, or unspecified chronic kidney disease; I25.10 Atherosclerotic heart disease of native coronary artery without angina pectoris; N18.9 Chronic kidney disease, unspecified; E87.6 Hypokalemia; Z86.73 Personal history of transient ischemic attack (TIA), and cerebral infarction without residual deficits; I67.9 Cerebrovascular disease, unspecified
CPT/HCPCS: 36415; 70450-TC; 71046-TC-FY; 80048; 80053; 82550; 82553; 83735; 84100; 84484; 85025; 85610; 93005; 93010; 99285-25; G0378; J1644; J7030

== ENCOUNTER 2021-04-17 16:29 | Inpatient (IN) | payer OTHER ==
[2021-04-17] MEDS ORDERED: ACETAMINOPHEN 500 MG TABLET (FP) PO ONE (18:31)
[2021-04-17] MEDS ORDERED: ACETAMINOPHEN 325 MG TABLET (FP) ONE (18:53)
[2021-04-17 20:06] LABS: BASO % 0.8 % (0-2.0); EOS % 0.9 % (0-4.5); HEMATOCRIT 36.8 % (35.4-49); LYMPH % 14.9 % (8-40); MCH 24.8 pg (25.7-33.7); MCHC 32.6 g/dl (32.0-35.9); MEAN PLT VOLUME 8.1 fl (7.5-11.1); MONO % 6.9 % (3.8-10.2); NEUT % 76.5 % (42.8-82.8); PLATELET COUNT 253 10^3/uL (134-434); RBC 4.84 M/mm3 (4.00-5.60); WHITE BLOOD COUNT 9.1 K/mm3 (4.0-10.0)
[2021-04-17 20:23] LABS: CHLORIDE 108 mmol/L (98-107); SODIUM 141 mmol/L (136-145)
[2021-04-17 20:24] LABS: CALCIUM 9.6 mg/dL (8.5-10.1)
[2021-04-17 20:25] LABS: ALBUMIN 3.2 g/dl (3.4-5.0); BLOOD UREA NITROGEN 26.6 mg/dL (7-18); CO2 25 mmol/L (21-32); GLUCOSE,RANDOM 119 mg/dL (74-106)
[2021-04-17 20:28] LABS: CREATININE 1.8 mg/dL (0.55-1.3); SGOT/AST 21 U/L (15-37); SGPT/ALT 17 U/L (13-61)
[2021-04-17 20:29] LABS: BILIRUBIN,TOTAL 0.4 mg/dL (0.2-1)
[2021-04-17 20:31] LABS: ALK PHOS 98 U/L (45-117)
[2021-04-17] MEDS ORDERED: SODIUM CHLORIDE 0.9% 500 ML INFUS.BAG IV ONE (20:52)
[2021-04-17] MEDS ORDERED: CEFAZOLIN 1 GM in DEXTROSE 5%-WATER - 50 ML IVPB ONE (21:01)
[2021-04-17 21:09] LABS: ANION GAP 7 MMOL/L (8-16)
[2021-04-17 21:10] LABS: ERYTHROCYTE SEDIMENTATION RATE 81 mm/hr (0-20)
[2021-04-17] MEDS ORDERED: POTASSIUM CHLORIDE ORAL LIQUID 20 MEQ/15 ML PO ONE (21:11)
[2021-04-17] MEDS ORDERED: MAGNESIUM SULF 50% (8.12 MEQ/2 ML-1 GM VIAL) IVPB ONE (21:12)
[2021-04-17 21:23] LABS: EPI CELLS 1 /uL (0-25.1); HYALINE CASTS 1 /uL (0-3.1); URINE APPEARANCE CLEAR; URINE BACTERIA 2080 /uL (0-1359); URINE BILIRUBIN NEGATIVE (NEGATIVE); URINE COLOR YELLOW; URINE GLUCOSE (UA) NEGATIVE (NEGATIVE); URINE KETONE NEGATIVE (NEGATIVE); URINE LEUK ESTERASE 2+ (NEGATIVE); URINE NITRITE NEGATIVE (NEGATIVE); URINE PROTEIN 2+ (NEGATIVE); URINE RBC 2357 /uL (0-23.9); URINE WBC 226 /uL (0-25.8)
[2021-04-17 21:34] LABS: MAGNESIUM 2.1 mg/dL (1.8-2.4)
[2021-04-17] MEDS ORDERED: POTASSIUM CHLORIDE ORAL LIQUID 20 MEQ/15 ML ONE (22:03)
[2021-04-17] MEDS ORDERED: CEFAZOLIN 1 GM/D5W 1 GM/50 ML BAG ONE (22:03)
[2021-04-17] MEDS ORDERED: MAGNESIUM 1GM/D5W - 1 GM/100 ML IVPB IVPB ONE (22:03)
[2021-04-17] MEDS ORDERED: POTASSIUM CHLORIDE TABS 20 MEQ TABLET.ER (FP) PO ONE ×2 (23:26→23:51)
[2021-04-17] MEDS ORDERED: HEPARIN NA (PORCINE) 5,000 UNITS/ML 1ML VIAL ONE (23:26)
[2021-04-17] MEDS ORDERED: SODIUM CHLORIDE 1,000 ML IV SCH (23:30)
[2021-04-17] MEDS: HEPARIN NA (PORCINE) 5,000 UNITS/ML 1ML VIAL SQ SCH (23:34)
[2021-04-18] MEDS ORDERED: ACETAMINOPHEN 325 MG TABLET (FP) ONE (01:04)
[2021-04-18] MEDS: ACETAMINOPHEN 325 MG TABLET (FP) PO PRN ×2 (01:08→13:35)
[2021-04-18 03:46] LABS: CALCIUM 8.8 mg/dL (8.5-10.1)
[2021-04-18 03:50] LABS: CREATININE 1.6 mg/dL (0.55-1.3)
[2021-04-18 04:40] VITALS: BMI 29.3
[2021-04-18] MEDS: HEPARIN NA (PORCINE) 5,000 UNITS/ML 1ML VIAL SQ SCH ×3 (05:44→21:08)
[2021-04-18] MEDS ORDERED: POTASSIUM CHLORIDE TABS 20 MEQ TABLET.ER (FP) PO ONE ×2 (08:30→18:00)
[2021-04-18] MEDS ORDERED: oxyCODONE HCL 5 MG TABLET PO ONE (08:30)
[2021-04-18] MEDS ORDERED: LISINOPRIL 20 MG TABLET PO SCH (10:00)
[2021-04-18] MEDS ORDERED: PATIENT'S OWN MEDICATION (NON-FORMULARY) (Nifedipine [Nifedipine Er] 90 MG Tablet.Er) PO SCH (10:00)
[2021-04-18] MEDS ORDERED: cefTRIAXone SODIUM 1 GM VIAL ONE (11:23)
[2021-04-18] MEDS ORDERED: DEXTROSE 5%-WATER - 50 ML IVPB ONE (11:24)
[2021-04-18] MEDS: ASPIRIN COATED 81 MG TABLET.EC PO SCH (11:25)
[2021-04-18] MEDS: NIFEdipine E.R. 90 MG TABLET PO SCH (11:26)
[2021-04-18] MEDS: CEFTRIAXONE 1 GM in DEXTROSE 5%-WATER - 50 ML IVPB SCH (11:26)
[2021-04-18] MEDS ORDERED: ACETAMINOPHEN 1000 MG/100 ML VIAL IVPB PRN (12:09)
[2021-04-18 12:10] LABS: BLOOD UREA NITROGEN 17.4 mg/dL (7-18); MAGNESIUM 2.4 mg/dL (1.8-2.4)
[2021-04-18 12:13] LABS: CREATININE 1.6 mg/dL (0.55-1.3); PHOSPHOROUS 1.3 mg/dL (2.5-4.9)
[2021-04-18 12:20] LABS: BASO % 0.4 % (0-2.0); EOS % 0.9 % (0-4.5); HEMATOCRIT 35.1 % (35.4-49); HEMOGLOBIN 11.4 GM/dL (11.7-16.9); LYMPH % 15.9 % (8-40); MCH 24.8 pg (25.7-33.7); MCHC 32.6 g/dl (32.0-35.9); MEAN CELL VOLUME 76.1 fl (80-96); MEAN PLT VOLUME 8.5 fl (7.5-11.1); NEUT % 75.8 % (42.8-82.8); PLATELET COUNT 237 10^3/uL (134-434); RBC 4.61 M/mm3 (4.00-5.60); WHITE BLOOD COUNT 8.1 K/mm3 (4.0-10.0)
[2021-04-18] MEDS: predniSONE 10 MG TABLET (UD) PO SCH (12:45)
[2021-04-18] MEDS: PANTOPRAZOLE 40 MG TABLET PO SCH (12:46)
[2021-04-18] MEDS: oxyCODONE HCL 5 MG TABLET PO PRN (13:37)
[2021-04-18] MEDS ORDERED: LISINOPRIL 20 MG TABLET PO ONE (14:00)
[2021-04-18] MEDS: ACETAMINOPHEN 1000 MG/100 ML VIAL IVPB PRN (18:38)
[2021-04-19] MEDS: HEPARIN NA (PORCINE) 5,000 UNITS/ML 1ML VIAL SQ SCH ×3 (05:00→21:45)
[2021-04-19] MEDS: oxyCODONE HCL 5 MG TABLET PO PRN ×2 (05:01→09:47)
[2021-04-19] MEDS: ACETAMINOPHEN 1000 MG/100 ML VIAL IVPB PRN ×2 (06:19→15:44)
[2021-04-19 08:46] LABS: EPI CELLS 16 /uL (0-25.1); HYALINE CASTS 3 /uL (0-3.1); URINE APPEARANCE CLEAR; URINE BACTERIA 25 /uL (0-1359); URINE BILIRUBIN NEGATIVE (NEGATIVE); URINE COLOR YELLOW; URINE GLUCOSE (UA) 1+ (NEGATIVE); URINE KETONE NEGATIVE (NEGATIVE); URINE LEUK ESTERASE NEGATIVE (NEGATIVE); URINE NITRITE NEGATIVE (NEGATIVE); URINE PROTEIN 3+ (NEGATIVE); URINE RBC 949 /uL (0-23.9); URINE UROBILINOGEN 0.2 mg/dL (0.2-1.0); URINE WBC 47 /uL (0-25.8)
[2021-04-19] MEDS ORDERED: cefTRIAXone SODIUM 1 GM VIAL ONE (09:13)
[2021-04-19] MEDS ORDERED: DEXTROSE 5%-WATER - 50 ML IVPB ONE (09:14)
[2021-04-19] MEDS: NIFEdipine E.R. 90 MG TABLET PO SCH (09:46)
[2021-04-19] MEDS: predniSONE 10 MG TABLET (UD) PO SCH (09:46)
[2021-04-19] MEDS: PANTOPRAZOLE 40 MG TABLET PO SCH (09:46)
[2021-04-19] MEDS: CEFTRIAXONE 1 GM in DEXTROSE 5%-WATER - 50 ML IVPB SCH (09:46)
[2021-04-19] MEDS: ASPIRIN COATED 81 MG TABLET.EC PO SCH (09:46)
[2021-04-19] MEDS ORDERED: LISINOPRIL 20 MG TABLET PO SCH (10:00)
[2021-04-19 10:16] LABS: BASO % 0.5 % (0-2.0); EOS % 0.2 % (0-4.5); HEMATOCRIT 33.5 % (35.4-49); HEMOGLOBIN 10.8 GM/dL (11.7-16.9); LYMPH % 13.1 % (8-40); MCH 24.8 pg (25.7-33.7); MCHC 32.4 g/dl (32.0-35.9); MEAN CELL VOLUME 76.5 fl (80-96); MEAN PLT VOLUME 8.9 fl (7.5-11.1); MONO % 6.6 % (3.8-10.2); NEUT % 79.6 % (42.8-82.8); PLATELET COUNT 252 10^3/uL (134-434); RBC 4.38 M/mm3 (4.00-5.60); RDW 17.7 % (11.9-15.9); WHITE BLOOD COUNT 11.3 K/mm3 (4.0-10.0)
[2021-04-19 10:55] LABS: CALCIUM 9.6 mg/dL (8.5-10.1)
[2021-04-19 10:56] LABS: ALBUMIN 2.6 g/dl (3.4-5.0); BLOOD UREA NITROGEN 21.7 mg/dL (7-18)
[2021-04-19 10:59] LABS: CREATININE 1.7 mg/dL (0.55-1.3)
[2021-04-19 11:00] LABS: BILIRUBIN,TOTAL 0.5 mg/dL (0.2-1)
[2021-04-19] MEDS ORDERED: COLCHICINE 0.6 MG CAPSULE PO SCH (11:30)
[2021-04-19] MEDS ORDERED: COLCHICINE 0.6 MG TAB PO SCH (11:50)
[2021-04-19 12:02] LABS: MAGNESIUM 2.1 mg/dL (1.8-2.4)
[2021-04-19] MEDS: POTASSIUM CHLORIDE TABS 20 MEQ TABLET.ER (FP) PO SCH ×2 (13:27→15:24)
[2021-04-19] MEDS ORDERED: MEROPENEM 1 GM in DEXTROSE 5%-WATER 100 ML IVPB SCH (14:00)
[2021-04-19] MEDS: ERTAPENEM SODIUM 1 GM in SODIUM CHLORIDE 50 ML IVPB SCH (17:15)
[2021-04-20] MEDS: HEPARIN NA (PORCINE) 5,000 UNITS/ML 1ML VIAL SQ SCH ×3 (05:46→22:08)
[2021-04-20 08:38] LABS: HEMATOCRIT 34.5 % (35.4-49); HEMOGLOBIN 11.6 GM/dL (11.7-16.9); MCH 25.2 pg (25.7-33.7); MCHC 33.7 g/dl (32.0-35.9); MEAN CELL VOLUME 74.8 fl (80-96); MEAN PLT VOLUME 8.5 fl (7.5-11.1); PLATELET COUNT 265 10^3/uL (134-434); RBC 4.61 M/mm3 (4.00-5.60); WHITE BLOOD COUNT 10.9 K/mm3 (4.0-10.0)
[2021-04-20 09:05] LABS: CALCIUM 9.2 mg/dL (8.5-10.1)
[2021-04-20 09:06] LABS: BLOOD UREA NITROGEN 23.5 mg/dL (7-18)
[2021-04-20 09:10] LABS: PHOSPHOROUS 3.2 mg/dL (2.5-4.9)
[2021-04-20 09:12] LABS: CREATININE 1.7 mg/dL (0.55-1.3); MAGNESIUM 2.2 mg/dL (1.8-2.4)
[2021-04-20] MEDS ORDERED: PT OWN MED DRAWER 7, Y5N ONE ×2 (10:18→16:15)
[2021-04-20] MEDS: ERTAPENEM SODIUM 1 GM in SODIUM CHLORIDE 50 ML IVPB SCH (10:54)
[2021-04-20] MEDS: ASPIRIN COATED 81 MG TABLET.EC PO SCH (10:55)
[2021-04-20] MEDS: TAMSULOSIN HCL 0.4 MG CAP PO SCH (10:55)
[2021-04-20] MEDS: NIFEdipine E.R. 90 MG TABLET PO SCH (10:55)
[2021-04-20] MEDS: PANTOPRAZOLE 40 MG TABLET PO SCH (10:55)
[2021-04-20] MEDS: predniSONE 10 MG TABLET (UD) PO SCH (10:55)
[2021-04-20] MEDS: LOSARTAN POTASSIUM 50 MG TABLET PO SCH (10:56)
[2021-04-20] MEDS: oxyCODONE HCL 5 MG TABLET PO PRN ×2 (11:17→16:20)
[2021-04-20] MEDS: LABETALOL HCL 200 MG TABLET (FP) PO SCH ×2 (16:20→22:08)
[2021-04-20] MEDS: COLCHICINE 0.6 MG TAB PO SCH (16:39)
[2021-04-21] MEDS: HEPARIN NA (PORCINE) 5,000 UNITS/ML 1ML VIAL SQ SCH ×2 (05:39→14:58)
[2021-04-21 08:13] LABS: HEMOGLOBIN 10.9 GM/dL (11.7-16.9); MCHC 33.9 g/dl (32.0-35.9); MEAN CELL VOLUME 73.6 fl (80-96); MEAN PLT VOLUME 8.1 fl (7.5-11.1); PLATELET COUNT 275 10^3/uL (134-434); RBC 4.35 M/mm3 (4.00-5.60); RDW 16.8 % (11.9-15.9); WHITE BLOOD COUNT 10.5 K/mm3 (4.0-10.0)
[2021-04-21 08:35] LABS: CALCIUM 9.1 mg/dL (8.5-10.1)
[2021-04-21 08:39] LABS: CREATININE 1.9 mg/dL (0.55-1.3)
[2021-04-21] MEDS: oxyCODONE HCL 5 MG TABLET PO PRN (09:06)
[2021-04-21] MEDS: NIFEdipine E.R. 90 MG TABLET PO SCH (09:06)
[2021-04-21] MEDS: TAMSULOSIN HCL 0.4 MG CAP PO SCH (09:06)
[2021-04-21] MEDS: LABETALOL HCL 200 MG TABLET (FP) PO SCH (09:07)
[2021-04-21] MEDS: COLCHICINE 0.6 MG TAB PO SCH (09:07)
[2021-04-21] MEDS: ASPIRIN COATED 81 MG TABLET.EC PO SCH (09:07)
[2021-04-21] MEDS: predniSONE 10 MG TABLET (UD) PO SCH (09:07)
[2021-04-21] MEDS: PANTOPRAZOLE 40 MG TABLET PO SCH (09:07)
[2021-04-21] MEDS: LOSARTAN POTASSIUM 50 MG TABLET PO SCH (09:08)
[2021-04-21] MEDS: ERTAPENEM SODIUM 1 GM in SODIUM CHLORIDE 50 ML IVPB SCH (09:21)
[2021-04-21 13:32] VITALS: BP 174/93; PULSE 78; TEMP 98.6
[2021-04-21] MEDS ORDERED: ACETAMINOPHEN 325 MG TABLET (FP) PO PRN (17:34)
== END 2021-04-21 18:41 | disposition home or self-care (01) | DRG 351 ==
LOC: EDBD 16:29 → JER 16:29 → OBSVTOIN 20:55 → JERBED 20:55 → MERGE 20:55 → J5S 04-18 04:43
DX: M10.9 Gout, unspecified (principal); L03.115 Cellulitis of right lower limb; N30.91 Cystitis, unspecified with hematuria; I12.9 Hypertensive chronic kidney disease with stage 1 through stage 4 chronic kidney disease, or unspecified chronic kidney disease; N18.30 Chronic kidney disease, stage 3 unspecified; E87.6 Hypokalemia; N40.0 Benign prostatic hyperplasia without lower urinary tract symptoms; Z16.12 Extended spectrum beta lactamase (ESBL) resistance; M25.571 Pain in right ankle and joints of right foot; B96.89 Other specified bacterial agents as the cause of diseases classified elsewhere
CPT/HCPCS: 36415; 73610-TC-RT-FY; 73630-TC-RT-FY; 80048; 80053; 81003; 82550; 82553; 83735; 84100; 84550; 85025; 85027; 85651; 86140; 87086; 87186; 93005; 93010; 93971-TC; 97116-GP; 97161-GP; 99285-25; C9803; J0131; J1644; U0003; U0005

== ENCOUNTER 2021-06-03 09:58 | Inpatient (IN) | payer OTHER ==
[2021-06-03 10:03] VITALS: BMI 26.1
[2021-06-03] MEDS ORDERED: LOSARTAN POTASSIUM 50 MG TABLET PO ONE (10:42)
[2021-06-03] MEDS ORDERED: LABETALOL HCL 200 MG TABLET (FP) PO ONE (10:42)
[2021-06-03] MEDS ORDERED: LOSARTAN POTASSIUM 50 MG TABLET ONE (10:46)
[2021-06-03] MEDS ORDERED: LABETALOL HCL 100 MG TABLET (FP) ONE ×2 (10:46→23:28)
[2021-06-03] MEDS ORDERED: ACETAMINOPHEN 500 MG TABLET (FP) PO ONE (10:49)
[2021-06-03] MEDS ORDERED: ACETAMINOPHEN 325 MG TABLET (FP) ONE (10:54)
[2021-06-03 12:25] LABS: EPI CELLS 1 /uL (0-25.1); HYALINE CASTS 1 /uL (0-3.1); URINE APPEARANCE CLEAR; URINE BACTERIA 614 /uL (0-1359); URINE BILIRUBIN NEGATIVE (NEGATIVE); URINE COLOR YELLOW; URINE GLUCOSE (UA) NEGATIVE (NEGATIVE); URINE KETONE NEGATIVE (NEGATIVE); URINE LEUK ESTERASE 1+ (NEGATIVE); URINE NITRITE NEGATIVE (NEGATIVE); URINE PROTEIN 3+ (NEGATIVE); URINE RBC 77 /uL (0-23.9); URINE UROBILINOGEN 0.2 mg/dL (0.2-1.0); URINE WBC 135 /uL (0-25.8)
[2021-06-03] MEDS ORDERED: LIDOCAINE HCL 1%, 10 MG/ML (50 mL VIAL) SQ ONE (13:09)
[2021-06-03 14:18] LABS: CRYSTALS,SYNOVIAL FLUID NEGATIVE
[2021-06-03 15:20] LABS: BF WBC & OTHER NUCLEATED CELLS 61310 /mm3
[2021-06-03 15:21] LABS: BODY FLUID MACROPHAGES 2 %; BODY FLUID MONOCYTE 1 %
[2021-06-03] MEDS ORDERED: VANCOMYCIN 1 GM in D5W (PRE-DOCKED) 1,000 MG/250 ML IVPB ONE (16:46)
[2021-06-03] MEDS ORDERED: VANCOMYCIN 1 GRAM (PRE-DOCKED) 1,000 MG/250 ML BAG IVPB ONE (17:00)
[2021-06-03 17:17] LABS: BASO % 0.5 % (0-2.0); EOS % 0.5 % (0-4.5); HEMATOCRIT 34.9 % (35.4-49); HEMOGLOBIN 11.4 GM/dL (11.7-16.9); LYMPH % 15.9 % (8-40); MCHC 32.7 g/dl (32.0-35.9); MEAN CELL VOLUME 76.4 fl (80-96); MEAN PLT VOLUME 8.5 fl (7.5-11.1); MONO % 13.5 % (3.8-10.2); NEUT % 69.6 % (42.8-82.8); PLATELET COUNT 200 10^3/uL (134-434); RBC 4.56 M/mm3 (4.00-5.60); RDW 17.8 % (11.9-15.9); WHITE BLOOD COUNT 9.4 K/mm3 (4.0-10.0)
[2021-06-03 17:32] LABS: INR 1.14 (0.83-1.09); PROTHROMBIN TIME (PATIENT) 13.3 SEC (9.7-13.0)
[2021-06-03 17:35] LABS: ACTIVATED PTT 36.3 SECONDS (25.2-36.5)
[2021-06-03] MEDS ORDERED: MEROPENEM 1 GM in DEXTROSE 5%-WATER 100 ML IVPB ONE (17:35)
[2021-06-03 17:40] LABS: CHLORIDE 98 mmol/L (98-107); SODIUM 139 mmol/L (136-145)
[2021-06-03 17:42] LABS: ALBUMIN 3.1 g/dl (3.4-5.0); BLOOD UREA NITROGEN 31.5 mg/dL (7-18); CALCIUM 9.2 mg/dL (8.5-10.1); CO2 32 mmol/L (21-32); GLUCOSE,RANDOM 98 mg/dL (74-106)
[2021-06-03] MEDS ORDERED: MEROPENEM 1 GM VIAL (RESTRICTED TO ID) IVPB ONE (17:42)
[2021-06-03 17:45] LABS: CREATININE 2.4 mg/dL (0.55-1.3); SGOT/AST 22 U/L (15-37); SGPT/ALT 12 U/L (13-61)
[2021-06-03 17:47] LABS: BILIRUBIN,TOTAL 1.6 mg/dL (0.2-1); TOT PROT 7.2 g/dl (6.4-8.2)
[2021-06-03 17:48] LABS: ALK PHOS 84 U/L (45-117)
[2021-06-03 17:54] LABS: ERYTHROCYTE SEDIMENTATION RATE 86 mm/hr (0-20)
[2021-06-03 17:59] LABS: ANION GAP 9 MMOL/L (8-16)
[2021-06-03] MEDS ORDERED: NIFEdipine E.R 60 MG TABLET PO ONE (18:56)
[2021-06-03] MEDS ORDERED: NIFEdipine E.R 60 MG TABLET PO SCH (19:00)
[2021-06-03 19:04] LABS: MAGNESIUM 2.4 mg/dL (1.8-2.4)
[2021-06-03 19:07] LABS: URIC ACID 10.1 mg/dL (2.6-7.2)
[2021-06-03] MEDS ORDERED: NIFEdipine E.R. 30 MG TABLET ONE (19:35)
[2021-06-03] MEDS ORDERED: POTASSIUM CHLORIDE TABS 20 MEQ TABLET.ER (FP) PO ONE ×2 (20:04→20:51)
[2021-06-03] MEDS ORDERED: KCL 10 MEQ IVPB 10 MEQ/100 ML INFUS.BAG IVPB ONE (20:51)
[2021-06-03] MEDS: KCL 10 MEQ IVPB 10 MEQ/100 ML INFUS.BAG IVPB SCH ×2 (20:58→23:27)
[2021-06-03] MEDS ORDERED: LABETALOL HCL 200 MG TABLET (FP) PO SCH (22:00)
[2021-06-04] MEDS ORDERED: oxyCODONE HCL 5 MG TABLET ONE ×2 (00:35→09:02)
[2021-06-04] MEDS: oxyCODONE HCL 5 MG TABLET PO PRN ×2 (00:39→09:06)
[2021-06-04] MEDS ORDERED: PANTOPRAZOLE 40 MG TABLET ONE (08:52)
[2021-06-04] MEDS ORDERED: TAMSULOSIN HCL 0.4 MG CAP ONE (08:52)
[2021-06-04] MEDS ORDERED: LABETALOL HCL 100 MG TABLET (FP) ONE ×2 (08:52→22:25)
[2021-06-04] MEDS: LABETALOL HCL 100 MG TABLET (FP) PO SCH ×2 (09:06→22:47)
[2021-06-04] MEDS: TAMSULOSIN HCL 0.4 MG CAP PO SCH (09:06)
[2021-06-04] MEDS: PANTOPRAZOLE 40 MG TABLET PO SCH (09:06)
[2021-06-04] MEDS ORDERED: LOSARTAN POTASSIUM 50 MG TABLET PO SCH (10:00)
[2021-06-04] MEDS ORDERED: NIFEdipine E.R. 30 MG TABLET PO SCH (11:15)
[2021-06-04] MEDS ORDERED: NIFEdipine E.R. 30 MG TABLET ONE ×2 (12:39→18:05)
[2021-06-04] MEDS ORDERED: PIPERACILLIN/TAZOB 2.25 GM 2.25 GM/50 ML BAG IVPB ONE ×2 (12:41→18:05)
[2021-06-04] MEDS: PIPERACILLIN/TAZOB 2.25 GM 2.25 GM in DEXTROSE 5%-WATER - 50 ML IVPB SCH ×2 (12:53→18:35)
[2021-06-04] MEDS ORDERED: COLCHICINE 0.6 MG TAB PO ONE (14:00)
[2021-06-04] MEDS ORDERED: POTASSIUM CHLORIDE TABS 20 MEQ TABLET.ER (FP) PO ONE ×2 (15:22→16:03)
[2021-06-04] MEDS ORDERED: VANCOMYCIN 1 GRAM (PRE-DOCKED) 1,000 MG/250 ML BAG IVPB ONE (16:01)
[2021-06-04] MEDS ORDERED: HEPARIN NA (PORCINE) 5,000 UNITS/ML 1ML VIAL ONE ×2 (16:03→22:26)
[2021-06-04] MEDS ORDERED: PATIENT'S OWN MEDICATION (NON-FORMULARY) (Nifedipine [Nifedipine Er] 90 MG Tablet.Er) PO SCH (16:15)
[2021-06-04] MEDS: VANCOMYCIN 1 GRAM (PRE-DOCKED) 1,000 MG/250 ML BAG IVPB SCH (16:29)
[2021-06-04] MEDS: HEPARIN NA (PORCINE) 5,000 UNITS/ML 1ML VIAL SQ SCH ×2 (16:30→22:47)
[2021-06-04 16:48] LABS: BASO % 0.2 % (0-2.0); EOS % 0.2 % (0-4.5); HEMOGLOBIN 11.2 GM/dL (11.7-16.9); LYMPH % 7.8 % (8-40); MCH 25.1 pg (25.7-33.7); MCHC 32.8 g/dl (32.0-35.9); MEAN CELL VOLUME 76.4 fl (80-96); MEAN PLT VOLUME 8.7 fl (7.5-11.1); MONO % 8.9 % (3.8-10.2); NEUT % 82.9 % (42.8-82.8); PLATELET COUNT 181 10^3/uL (134-434); RBC 4.45 M/mm3 (4.00-5.60); RDW 17.7 % (11.9-15.9); WHITE BLOOD COUNT 10.1 K/mm3 (4.0-10.0)
[2021-06-04 17:02] LABS: ALBUMIN 2.7 g/dl (3.4-5.0)
[2021-06-04 17:03] LABS: BLOOD UREA NITROGEN 26.8 mg/dL (7-18)
[2021-06-04 17:05] LABS: CREATININE 2.3 mg/dL (0.55-1.3); URIC ACID 8.8 mg/dL (2.6-7.2)
[2021-06-04 17:07] LABS: BILIRUBIN,TOTAL 1.8 mg/dL (0.2-1)
[2021-06-04 17:09] LABS: LACTIC ACID 2.1 mmol/L (0.4-2.0)
[2021-06-04] MEDS ORDERED: NIFEdipine E.R. 30 MG TABLET PO ONE (17:28)
[2021-06-04] MEDS ORDERED: SODIUM CHLORIDE 1,000 ML IV SCH (18:45)
[2021-06-05] MEDS ORDERED: DEXTROSE 5%-WATER - 50 ML IVPB ONE ×3 (05:59→17:00)
[2021-06-05] MEDS ORDERED: PIPERACILLIN/TAZOBACTAM 2.25 GM VIAL IVPB ONE ×3 (05:59→17:00)
[2021-06-05] MEDS: HEPARIN NA (PORCINE) 5,000 UNITS/ML 1ML VIAL SQ SCH ×3 (06:31→21:04)
[2021-06-05] MEDS: PIPERACILLIN/TAZOB 2.25 GM 2.25 GM in DEXTROSE 5%-WATER - 50 ML IVPB SCH ×3 (06:41→17:05)
[2021-06-05] MEDS: TAMSULOSIN HCL 0.4 MG CAP PO SCH (08:30)
[2021-06-05] MEDS: oxyCODONE HCL 5 MG TABLET PO PRN ×2 (08:37→17:04)
[2021-06-05] MEDS ORDERED: PT OWN MED DRAWER 7, Y5N ONE (09:56)
[2021-06-05 10:39] LABS: HEMATOCRIT 32.2 % (35.4-49); HEMOGLOBIN 10.9 GM/dL (11.7-16.9); MCH 25.4 pg (25.7-33.7); MCHC 33.7 g/dl (32.0-35.9); MEAN CELL VOLUME 75.4 fl (80-96); MEAN PLT VOLUME 8.3 fl (7.5-11.1); PLATELET COUNT 165 10^3/uL (134-434); RBC 4.27 M/mm3 (4.00-5.60); RDW 17.6 % (11.9-15.9); WHITE BLOOD COUNT 9.9 K/mm3 (4.0-10.0)
[2021-06-05 10:58] LABS: CHLORIDE 105 mmol/L (98-107); SODIUM 141 mmol/L (136-145)
[2021-06-05] MEDS: LABETALOL HCL 100 MG TABLET (FP) PO SCH ×2 (11:11→21:04)
[2021-06-05] MEDS: NIFEdipine E.R. 90 MG TABLET PO SCH (11:12)
[2021-06-05] MEDS: PANTOPRAZOLE 40 MG TABLET PO SCH (11:12)
[2021-06-05 11:15] LABS: ALBUMIN 2.3 g/dl (3.4-5.0); BLOOD UREA NITROGEN 20.9 mg/dL (7-18); CALCIUM 8.5 mg/dL (8.5-10.1); GLUCOSE,RANDOM 182 mg/dL (74-106)
[2021-06-05 11:16] LABS: BILIRUBIN,TOTAL 1.6 mg/dL (0.2-1); CO2 28 mmol/L (21-32); CREATININE 2.2 mg/dL (0.55-1.3); MAGNESIUM 2.1 mg/dL (1.8-2.4); TOT PROT 6.5 g/dl (6.4-8.2)
[2021-06-05 11:18] LABS: ALK PHOS 84 U/L (45-117); SGOT/AST 29 U/L (15-37)
[2021-06-05 11:19] LABS: SGPT/ALT 18 U/L (13-61)
[2021-06-05 11:20] LABS: ANION GAP 8 MMOL/L (8-16)
[2021-06-05 11:47] LABS: ERYTHROCYTE SEDIMENTATION RATE 85 mm/hr (0-20)
[2021-06-05] MEDS: VANCOMYCIN 1 GRAM (PRE-DOCKED) 1,000 MG/250 ML BAG IVPB SCH (12:29)
[2021-06-05] MEDS ORDERED: KCL 10 MEQ IVPB 10 MEQ/100 ML INFUS.BAG IVPB SCH (12:30)
[2021-06-05] MEDS ORDERED: POTASSIUM CHLORIDE ORAL LIQUID 20 MEQ/15 ML PO ONE (12:30)
[2021-06-05 12:55] LABS: MAGNESIUM 2.3 mg/dL (1.8-2.4)
[2021-06-05 12:58] LABS: PHOSPHOROUS 2.2 mg/dL (2.5-4.9)
[2021-06-05] MEDS: COLCHICINE 0.6 MG CAPSULE PO SCH (14:04)
[2021-06-05] MEDS: NAPH,MB-DB/K PH,MBDB POWDER PACKET PO SCH ×2 (14:06→21:04)
[2021-06-05 15:07] LABS: BF WBC & OTHER NUCLEATED CELLS 31724 /mm3
[2021-06-05 17:12] LABS: LACTIC ACID 2.4 mmol/L (0.4-2.0)
[2021-06-05] MEDS ORDERED: ACETAMINOPHEN 325 MG TABLET (FP) PO ONE (19:48)
[2021-06-06] MEDS ORDERED: PIPERACILLIN/TAZOBACTAM 2.25 GM VIAL IVPB ONE ×3 (01:08→16:49)
[2021-06-06] MEDS ORDERED: DEXTROSE 5%-WATER - 50 ML IVPB ONE ×3 (01:08→16:49)
[2021-06-06] MEDS: PIPERACILLIN/TAZOB 2.25 GM 2.25 GM in DEXTROSE 5%-WATER - 50 ML IVPB SCH ×3 (01:30→17:12)
[2021-06-06] MEDS: HEPARIN NA (PORCINE) 5,000 UNITS/ML 1ML VIAL SQ SCH (06:11)
[2021-06-06] MEDS ORDERED: PT OWN MED DRAWER 7, Y5N ONE (07:19)
[2021-06-06] MEDS: TAMSULOSIN HCL 0.4 MG CAP PO SCH (09:12)
[2021-06-06] MEDS: oxyCODONE HCL 5 MG TABLET PO PRN (09:12)
[2021-06-06] MEDS: LABETALOL HCL 100 MG TABLET (FP) PO SCH ×2 (09:13→21:42)
[2021-06-06] MEDS: NAPH,MB-DB/K PH,MBDB POWDER PACKET PO SCH ×2 (09:14→21:42)
[2021-06-06] MEDS: PANTOPRAZOLE 40 MG TABLET PO SCH (09:14)
[2021-06-06] MEDS: COLCHICINE 0.6 MG CAPSULE PO SCH (09:14)
[2021-06-06] MEDS: NIFEdipine E.R. 90 MG TABLET PO SCH (09:14)
[2021-06-06 10:14] LABS: BASO % 0.6 % (0-2.0); EOS % 1.8 % (0-4.5); HEMOGLOBIN 10.5 GM/dL (11.7-16.9); LYMPH % 11.5 % (8-40); MCH 25.7 pg (25.7-33.7); MCHC 33.8 g/dl (32.0-35.9); MEAN CELL VOLUME 75.9 fl (80-96); MEAN PLT VOLUME 8.8 fl (7.5-11.1); MONO % 8.2 % (3.8-10.2); NEUT % 77.9 % (42.8-82.8); PLATELET COUNT 168 10^3/uL (134-434); RBC 4.08 M/mm3 (4.00-5.60); RDW 17.6 % (11.9-15.9); WHITE BLOOD COUNT 9.2 K/mm3 (4.0-10.0)
[2021-06-06 10:30] LABS: CALCIUM 8.3 mg/dL (8.5-10.1)
[2021-06-06 10:31] LABS: BLOOD UREA NITROGEN 23.1 mg/dL (7-18)
[2021-06-06 10:34] LABS: CREATININE 2.3 mg/dL (0.55-1.3)
[2021-06-06] MEDS ORDERED: POTASSIUM CHLORIDE ORAL LIQUID 20 MEQ/15 ML PO ONE (11:45)
[2021-06-06] MEDS ORDERED: MAG HYDROX/AL HYDROX/SIMETH -MYLANTA- ORAL SUSPENSION PO SCH (12:00)
[2021-06-06] MEDS: VANCOMYCIN 1 GRAM (PRE-DOCKED) 1,000 MG/250 ML BAG IVPB SCH (12:22)
[2021-06-06] MEDS: MAG HYDROX/AL HYDROX/SIMETH 30 ML UNIT-DOSE CUP PO SCH ×2 (12:35→17:12)
[2021-06-06] MEDS ORDERED: HEPARIN NA (PORCINE) 5,000 UNITS/ML 1ML VIAL SQ SCH (14:00)
[2021-06-06] MEDS ORDERED: ACETAMINOPHEN 325 MG TABLET (FP) PO PRN (22:05)
[2021-06-07] MEDS: MAG HYDROX/AL HYDROX/SIMETH 30 ML UNIT-DOSE CUP PO SCH ×4 (00:09→18:23)
[2021-06-07] MEDS ORDERED: PIPERACILLIN/TAZOBACTAM 2.25 GM VIAL IVPB ONE ×3 (00:38→18:21)
[2021-06-07] MEDS ORDERED: DEXTROSE 5%-WATER - 50 ML IVPB ONE ×3 (00:38→18:21)
[2021-06-07] MEDS: PIPERACILLIN/TAZOB 2.25 GM 2.25 GM in DEXTROSE 5%-WATER - 50 ML IVPB SCH ×3 (02:04→18:23)
[2021-06-07] MEDS ORDERED: PROPOFOL 20 ML ONE ×3 (07:39→08:12)
[2021-06-07] MEDS ORDERED: SUCCINYLCHOLINE CHLORIDE 200 MG/10 ML SYRINGE ONE (07:40)
[2021-06-07] MEDS ORDERED: ceFAZolin SODIUM 1 GM VIAL ONE (07:51)
[2021-06-07] MEDS ORDERED: BUPIVACAINE HCL/PF 0.5% (5MG/ML) 10 ML VIAL IJ ONE (08:05)
[2021-06-07] MEDS ORDERED: LIDOCAINE 1%/EPI 1:100000 (20 ML MULTI DOSE VIAL) IJ ONE (08:05)
[2021-06-07] MEDS: TAMSULOSIN HCL 0.4 MG CAP PO SCH ×2 (08:30→12:59)
[2021-06-07] MEDS ORDERED: LACTATED RINGERS SOLUTION 1,000 ML IV SCH ×2 (09:00→09:29)
[2021-06-07 10:45] LABS: BF WBC & OTHER NUCLEATED CELLS 21838 /mm3
[2021-06-07] MEDS: NIFEdipine E.R. 90 MG TABLET PO SCH (11:27)
[2021-06-07] MEDS: PANTOPRAZOLE 40 MG TABLET PO SCH (11:27)
[2021-06-07] MEDS: LABETALOL HCL 100 MG TABLET (FP) PO SCH ×2 (11:27→21:24)
[2021-06-07] MEDS: NAPH,MB-DB/K PH,MBDB POWDER PACKET PO SCH ×2 (11:28→21:24)
[2021-06-07] MEDS: COLCHICINE 0.6 MG CAPSULE PO SCH (11:28)
[2021-06-07 11:36] LABS: BODY FLUID MONOCYTE 1 %
[2021-06-07] MEDS: VANCOMYCIN 1 GRAM (PRE-DOCKED) 1,000 MG/250 ML BAG IVPB SCH (13:50)
[2021-06-07 14:50] LABS: HEMATOCRIT 32.5 % (35.4-49); HEMOGLOBIN 10.6 GM/dL (11.7-16.9); LYMPH % 2.7 % (8-40); MCH 24.9 pg (25.7-33.7); MCHC 32.6 g/dl (32.0-35.9); MEAN CELL VOLUME 76.3 fl (80-96); MONO % 2.5 % (3.8-10.2); NEUT % 94.8 % (42.8-82.8); PLATELET COUNT 214 10^3/uL (134-434); RBC 4.26 M/mm3 (4.00-5.60); RDW 17.9 % (11.9-15.9); WHITE BLOOD COUNT 8.7 K/mm3 (4.0-10.0)
[2021-06-07 15:06] LABS: CALCIUM 8.8 mg/dL (8.5-10.1)
[2021-06-07 15:07] LABS: BLOOD UREA NITROGEN 26.6 mg/dL (7-18); MAGNESIUM 2.4 mg/dL (1.8-2.4)
[2021-06-07 15:35] LABS: ANISOCYTOSIS 1+; MACROCYTOSIS 0; PLATELET ESTIMATE NORMAL
[2021-06-08] MEDS: MAG HYDROX/AL HYDROX/SIMETH 30 ML UNIT-DOSE CUP PO SCH ×4 (01:10→17:48)
[2021-06-08] MEDS ORDERED: PIPERACILLIN/TAZOBACTAM 2.25 GM VIAL IVPB ONE ×3 (01:18→17:44)
[2021-06-08] MEDS ORDERED: DEXTROSE 5%-WATER - 50 ML IVPB ONE ×3 (01:18→17:45)
[2021-06-08] MEDS: PIPERACILLIN/TAZOB 2.25 GM 2.25 GM in DEXTROSE 5%-WATER - 50 ML IVPB SCH ×3 (01:27→17:48)
[2021-06-08] MEDS ORDERED: TAMSULOSIN HCL 0.4 MG CAP PO SCH (08:30)
[2021-06-08] MEDS: NIFEdipine E.R. 90 MG TABLET PO SCH (09:42)
[2021-06-08] MEDS: LABETALOL HCL 100 MG TABLET (FP) PO SCH ×2 (09:42→21:19)
[2021-06-08] MEDS: TAMSULOSIN HCL 0.4 MG CAP PO SCH (09:42)
[2021-06-08] MEDS: PANTOPRAZOLE 40 MG TABLET PO SCH (09:42)
[2021-06-08] MEDS: NAPH,MB-DB/K PH,MBDB POWDER PACKET PO SCH ×2 (09:43→21:18)
[2021-06-08] MEDS ORDERED: PT OWN MED DRAWER 7, Y5N ONE (09:44)
[2021-06-08] MEDS: COLCHICINE 0.6 MG CAPSULE PO SCH (09:47)
[2021-06-08 09:51] LABS: CHLORIDE 101 mmol/L (98-107); SODIUM 139 mmol/L (136-145)
[2021-06-08] MEDS ORDERED: POTASSIUM CHLORIDE TABS 20 MEQ TABLET.ER (FP) PO ONE (10:00)
[2021-06-08 10:06] LABS: ALBUMIN 2.1 g/dl (3.4-5.0); ANION GAP 11 MMOL/L (8-16); BLOOD UREA NITROGEN 24.8 mg/dL (7-18); CALCIUM 9.1 mg/dL (8.5-10.1); CO2 27 mmol/L (21-32); GLUCOSE,RANDOM 114 mg/dL (74-106)
[2021-06-08 10:09] LABS: HEMATOCRIT 31.2 % (35.4-49); HEMOGLOBIN 10.2 GM/dL (11.7-16.9); MCH 25.1 pg (25.7-33.7); MCHC 32.8 g/dl (32.0-35.9); MEAN CELL VOLUME 76.6 fl (80-96); MEAN PLT VOLUME 8.7 fl (7.5-11.1); PLATELET COUNT 230 10^3/uL (134-434); RBC 4.07 M/mm3 (4.00-5.60); RDW 17.5 % (11.9-15.9); SGOT/AST 20 U/L (15-37); SGPT/ALT 19 U/L (13-61); WHITE BLOOD COUNT 11.7 K/mm3 (4.0-10.0)
[2021-06-08 10:11] LABS: BILIRUBIN,TOTAL 0.7 mg/dL (0.2-1); TOT PROT 6.4 g/dl (6.4-8.2)
[2021-06-08 10:12] LABS: ALK PHOS 107 U/L (45-117)
[2021-06-08 11:09] LABS: ERYTHROCYTE SEDIMENTATION RATE 96 mm/hr (0-20)
[2021-06-08] MEDS: VANCOMYCIN 1 GRAM (PRE-DOCKED) 1,000 MG/250 ML BAG IVPB SCH (12:20)
[2021-06-08] MEDS ORDERED: ACETAMINOPHEN 325 MG TABLET (FP) PO PRN (19:57)
[2021-06-08] MEDS ORDERED: oxyCODONE HCL 5 MG TABLET PO PRN (19:57)
[2021-06-09] MEDS ORDERED: DEXTROSE 5%-WATER - 50 ML IVPB ONE ×2 (00:49→09:39)
[2021-06-09] MEDS ORDERED: PIPERACILLIN/TAZOBACTAM 2.25 GM VIAL IVPB ONE ×2 (00:49→09:39)
[2021-06-09] MEDS: PIPERACILLIN/TAZOB 2.25 GM 2.25 GM in DEXTROSE 5%-WATER - 50 ML IVPB SCH ×2 (01:03→09:45)
[2021-06-09] MEDS: MAG HYDROX/AL HYDROX/SIMETH 30 ML UNIT-DOSE CUP PO SCH ×4 (05:45→17:39)
[2021-06-09] MEDS: TAMSULOSIN HCL 0.4 MG CAP PO SCH (08:16)
[2021-06-09 08:44] LABS: HEMATOCRIT 31.4 % (35.4-49); HEMOGLOBIN 10.1 GM/dL (11.7-16.9); MCH 24.8 pg (25.7-33.7); MCHC 32.2 g/dl (32.0-35.9); MEAN PLT VOLUME 8.8 fl (7.5-11.1); PLATELET COUNT 271 10^3/uL (134-434); RBC 4.08 M/mm3 (4.00-5.60); RDW 18.1 % (11.9-15.9); WHITE BLOOD COUNT 11.7 K/mm3 (4.0-10.0)
[2021-06-09 09:02] LABS: BLOOD UREA NITROGEN 23.6 mg/dL (7-18); MAGNESIUM 2.4 mg/dL (1.8-2.4)
[2021-06-09 09:03] LABS: CALCIUM 9.3 mg/dL (8.5-10.1)
[2021-06-09] MEDS ORDERED: PT OWN MED DRAWER 7, Y5N ONE (09:39)
[2021-06-09] MEDS: NAPH,MB-DB/K PH,MBDB POWDER PACKET PO SCH (09:48)
[2021-06-09] MEDS: PANTOPRAZOLE 40 MG TABLET PO SCH (09:48)
[2021-06-09] MEDS: COLCHICINE 0.6 MG CAPSULE PO SCH (09:49)
[2021-06-09] MEDS: LABETALOL HCL 100 MG TABLET (FP) PO SCH (09:50)
[2021-06-09] MEDS: NIFEdipine E.R. 90 MG TABLET PO SCH (09:50)
[2021-06-09] MEDS: VANCOMYCIN 1 GRAM (PRE-DOCKED) 1,000 MG/250 ML BAG IVPB SCH (11:52)
[2021-06-09 14:14] VITALS: BP 153/87; PULSE 82; TEMP 99.1
== END 2021-06-09 19:36 | disposition home or self-care (01) | DRG 351 ==
LOC: JER 09:58 → JERBED 17:58 → J5S 06-05 02:40 → J6S 06-07 16:23
PROVIDERS: ADMIT Internal Medicine
PROC: 0S9C4ZZ Drainage of Right Knee Joint, Percutaneous Endoscopic Approach (ICD-10-PCS; principal; 2021-06-07 07:30)
DX: M10.061 Idiopathic gout, right knee (principal); N18.4 Chronic kidney disease, stage 4 (severe); D50.9 Iron deficiency anemia, unspecified; E78.5 Hyperlipidemia, unspecified; E87.6 Hypokalemia; I12.9 Hypertensive chronic kidney disease with stage 1 through stage 4 chronic kidney disease, or unspecified chronic kidney disease; K21.9 Gastro-esophageal reflux disease without esophagitis; L03.90 Cellulitis, unspecified; M10.9 Gout, unspecified; M25.461 Effusion, right knee; M25.561 Pain in right knee; N39.0 Urinary tract infection, site not specified; N40.0 Benign prostatic hyperplasia without lower urinary tract symptoms
CPT/HCPCS: 36415; 73564-TC-RT-FY; 80048; 80053; 81003; 82550; 82553; 82728; 83540; 83550; 83605; 83735; 84100; 84550; 85025; 85027; 85610; 85651; 85730; 86140; 86850; 86900; 86901; 87040; 87070; 87075; 87086; 87102; 87186; 87205; 87210; 87491; 87591; 89060; 93005; 93010; 93306-TC; 94760; 97116-GP; 97161-GP; 99285-25; C9803; G0480; J1644; U0003; U0005

== ENCOUNTER 2021-06-10 10:24 | Inpatient (IN) | payer OTHER ==
[2021-06-10] MEDS ORDERED: ACETAMINOPHEN 325 MG TABLET (FP) PO ONE (12:50)
[2021-06-10] MEDS ORDERED: predniSONE 20 MG TABLET (UD) PO ONE (12:50)
[2021-06-10] MEDS ORDERED: ACETAMINOPHEN 325 MG TABLET (FP) ONE (13:26)
[2021-06-10] MEDS ORDERED: predniSONE 10 MG TABLET (UD) ONE (13:26)
[2021-06-10] MEDS ORDERED: predniSONE 20 MG TABLET (UD) ONE ×2 (13:27)
[2021-06-10 20:50] LABS: BASO % 0.5 % (0-2.0); EOS % 0.1 % (0-4.5); HEMOGLOBIN 10.9 GM/dL (11.7-16.9); LYMPH % 5.6 % (8-40); MCH 24.5 pg (25.7-33.7); MCHC 32.1 g/dl (32.0-35.9); MEAN CELL VOLUME 76.4 fl (80-96); MEAN PLT VOLUME 8.3 fl (7.5-11.1); MONO % 1.7 % (3.8-10.2); NEUT % 92.1 % (42.8-82.8); PLATELET COUNT 348 10^3/uL (134-434); RBC 4.44 M/mm3 (4.00-5.60); RDW 17.6 % (11.9-15.9); WHITE BLOOD COUNT 11.6 K/mm3 (4.0-10.0)
[2021-06-10] MEDS ORDERED: ACETAMINOPHEN 325 MG TABLET (FP) PO PRN ×2 (21:05→21:09)
[2021-06-10] MEDS ORDERED: morphine CARPU-JECT 2 MG/1 ML DISP.SYRIN IVPUSH PRN (21:06)
[2021-06-10 21:57] LABS: ANISOCYTOSIS 2+; MACROCYTOSIS 0; OVALOCYTE 1+; PLATELET ESTIMATE NORMAL
[2021-06-10 22:29] LABS: CALCIUM 9.7 mg/dL (8.5-10.1)
[2021-06-10 22:30] LABS: BLOOD UREA NITROGEN 33.5 mg/dL (7-18)
[2021-06-10 22:33] LABS: CREATININE 2.3 mg/dL (0.55-1.3); URIC ACID 6.9 mg/dL (2.6-7.2)
[2021-06-10 22:35] LABS: BILIRUBIN,TOTAL 0.6 mg/dL (0.2-1); TOT PROT 7.6 g/dl (6.4-8.2)
[2021-06-10] MEDS: LABETALOL HCL 200 MG TABLET (FP) PO SCH (22:36)
[2021-06-10] MEDS: LOSARTAN POTASSIUM 50 MG TABLET PO SCH (22:36)
[2021-06-10] MEDS: ASPIRIN COATED 81 MG TABLET.EC PO SCH (22:36)
[2021-06-10 22:53] LABS: ALBUMIN 2.5 g/dl (3.4-5.0)
[2021-06-10] MEDS: HEPARIN NA (PORCINE) 5,000 UNITS/ML 1ML VIAL SQ SCH (22:56)
[2021-06-10] MEDS: COLCHICINE 0.6 MG TAB PO SCH (22:56)
[2021-06-11 00:18] VITALS: BMI 25.2
[2021-06-11] MEDS: HEPARIN NA (PORCINE) 5,000 UNITS/ML 1ML VIAL SQ SCH ×3 (06:18→21:11)
[2021-06-11] MEDS: LABETALOL HCL 200 MG TABLET (FP) PO SCH ×4 (06:50→21:11)
[2021-06-11] MEDS: TAMSULOSIN HCL 0.4 MG CAP PO SCH (08:12)
[2021-06-11] MEDS ORDERED: PT OWN MED DRAWER 7, Y5N ONE (09:40)
[2021-06-11] MEDS: LOSARTAN POTASSIUM 50 MG TABLET PO SCH (09:43)
[2021-06-11] MEDS: PANTOPRAZOLE 40 MG TABLET PO SCH (09:43)
[2021-06-11] MEDS: predniSONE 20 MG TABLET (UD) PO SCH (09:43)
[2021-06-11] MEDS: COLCHICINE 0.6 MG TAB PO SCH (09:43)
[2021-06-11] MEDS: ASPIRIN COATED 81 MG TABLET.EC PO SCH (09:43)
[2021-06-11] MEDS ORDERED: NIFEdipine E.R. 90 MG TABLET PO SCH (10:00)
[2021-06-11] MEDS ORDERED: predniSONE 5 MG TABLET (UD) PO SCH (10:00)
[2021-06-11] MEDS ORDERED: LOSARTAN POTASSIUM 50 MG TABLET PO ONE (18:35)
[2021-06-12] MEDS ORDERED: LABETALOL HCL 5 MG/1 ML (100MG/20 ML VIAL) IVPUSH ONE (05:27)
[2021-06-12] MEDS: HEPARIN NA (PORCINE) 5,000 UNITS/ML 1ML VIAL SQ SCH ×3 (06:20→21:26)
[2021-06-12] MEDS: NIFEdipine E.R 60 MG TABLET PO SCH ×3 (06:20→21:27)
[2021-06-12 08:28] LABS: BASO % 0.5 % (0-2.0); EOS % 0.6 % (0-4.5); HEMATOCRIT 31.8 % (35.4-49); HEMOGLOBIN 10.4 GM/dL (11.7-16.9); LYMPH % 18.4 % (8-40); MCH 24.7 pg (25.7-33.7); MCHC 32.6 g/dl (32.0-35.9); MEAN CELL VOLUME 75.7 fl (80-96); MONO % 8.5 % (3.8-10.2); PLATELET COUNT 419 10^3/uL (134-434); RDW 17.3 % (11.9-15.9); WHITE BLOOD COUNT 10.9 K/mm3 (4.0-10.0)
[2021-06-12 08:29] LABS: CHLORIDE 103 mmol/L (98-107); SODIUM 140 mmol/L (136-145)
[2021-06-12 08:33] LABS: CALCIUM 9.2 mg/dL (8.5-10.1)
[2021-06-12 08:34] LABS: ALBUMIN 2.3 g/dl (3.4-5.0); BLOOD UREA NITROGEN 33.7 mg/dL (7-18); CO2 28 mmol/L (21-32); GLUCOSE,RANDOM 98 mg/dL (74-106)
[2021-06-12 08:37] LABS: CREATININE 2.2 mg/dL (0.55-1.3); SGOT/AST 18 U/L (15-37); SGPT/ALT 24 U/L (13-61)
[2021-06-12 08:39] LABS: BILIRUBIN,TOTAL 0.5 mg/dL (0.2-1); TOT PROT 6.5 g/dl (6.4-8.2)
[2021-06-12 08:40] LABS: ALK PHOS 96 U/L (45-117)
[2021-06-12 08:43] LABS: ANION GAP 9 MMOL/L (8-16)
[2021-06-12] MEDS ORDERED: PT OWN MED DRAWER 7, Y5N ONE (09:17)
[2021-06-12] MEDS: COLCHICINE 0.6 MG TAB PO SCH (09:19)
[2021-06-12] MEDS: PANTOPRAZOLE 40 MG TABLET PO SCH (09:19)
[2021-06-12] MEDS: ASPIRIN COATED 81 MG TABLET.EC PO SCH (09:19)
[2021-06-12] MEDS: LABETALOL HCL 200 MG TABLET (FP) PO SCH ×2 (09:19→21:26)
[2021-06-12] MEDS: predniSONE 20 MG TABLET (UD) PO SCH (09:19)
[2021-06-12] MEDS: TAMSULOSIN HCL 0.4 MG CAP PO SCH (09:19)
[2021-06-12] MEDS: LOSARTAN POTASSIUM 50 MG TABLET PO SCH (09:19)
[2021-06-12] MEDS ORDERED: POTASSIUM CHLORIDE ORAL LIQUID 20 MEQ/15 ML PO ONE (09:22)
[2021-06-12] MEDS ORDERED: NIFEdipine E.R 60 MG TABLET PO SCH (10:00)
[2021-06-12] MEDS: KCL 10 MEQ IVPB 10 MEQ/100 ML INFUS.BAG IVPB SCH ×3 (10:32→12:47)
[2021-06-12 13:54] LABS: MAGNESIUM 2.5 mg/dL (1.8-2.4)
[2021-06-12 13:57] LABS: PHOSPHOROUS 3.7 mg/dL (2.5-4.9)
[2021-06-13] MEDS: HEPARIN NA (PORCINE) 5,000 UNITS/ML 1ML VIAL SQ SCH ×3 (06:30→22:05)
[2021-06-13 09:24] LABS: BASO % 0.4 % (0-2.0); EOS % 0.3 % (0-4.5); HEMATOCRIT 31.8 % (35.4-49); HEMOGLOBIN 10.3 GM/dL (11.7-16.9); LYMPH % 12.4 % (8-40); MCH 24.7 pg (25.7-33.7); MCHC 32.5 g/dl (32.0-35.9); MEAN CELL VOLUME 75.8 fl (80-96); MEAN PLT VOLUME 8.1 fl (7.5-11.1); MONO % 7.1 % (3.8-10.2); NEUT % 79.8 % (42.8-82.8); PLATELET COUNT 449 10^3/uL (134-434); RBC 4.19 M/mm3 (4.00-5.60); RDW 17.2 % (11.9-15.9); WHITE BLOOD COUNT 14.5 K/mm3 (4.0-10.0)
[2021-06-13 10:03] LABS: ALBUMIN 2.3 g/dl (3.4-5.0); CALCIUM 9.2 mg/dL (8.5-10.1)
[2021-06-13 10:04] LABS: MAGNESIUM 2.2 mg/dL (1.8-2.4)
[2021-06-13] MEDS: TAMSULOSIN HCL 0.4 MG CAP PO SCH (10:05)
[2021-06-13] MEDS: ASPIRIN COATED 81 MG TABLET.EC PO SCH (10:05)
[2021-06-13] MEDS: LABETALOL HCL 200 MG TABLET (FP) PO SCH ×2 (10:05→22:04)
[2021-06-13] MEDS: PANTOPRAZOLE 40 MG TABLET PO SCH (10:05)
[2021-06-13] MEDS: predniSONE 20 MG TABLET (UD) PO SCH (10:05)
[2021-06-13] MEDS: LOSARTAN POTASSIUM 50 MG TABLET PO SCH (10:05)
[2021-06-13] MEDS: NIFEdipine E.R 60 MG TABLET PO SCH ×2 (10:06→22:05)
[2021-06-13 10:07] LABS: BILIRUBIN,TOTAL 0.6 mg/dL (0.2-1); TOT PROT 6.6 g/dl (6.4-8.2)
[2021-06-13] MEDS ORDERED: POTASSIUM CHLORIDE ORAL LIQUID 20 MEQ/15 ML PO ONE (10:52)
[2021-06-13] MEDS: COLCHICINE 0.6 MG TAB PO SCH (10:54)
[2021-06-14] MEDS ORDERED: LABETALOL HCL 5 MG/1 ML (100MG/20 ML VIAL) IVPUSH ONE (05:22)
[2021-06-14] MEDS ORDERED: amLODIPine BESYLATE 5 MG TABLET (FP) PO ONE (05:43)
[2021-06-14] MEDS: HEPARIN NA (PORCINE) 5,000 UNITS/ML 1ML VIAL SQ SCH ×3 (06:07→21:38)
[2021-06-14] MEDS: TAMSULOSIN HCL 0.4 MG CAP PO SCH (08:10)
[2021-06-14] MEDS: predniSONE 20 MG TABLET (UD) PO SCH (10:10)
[2021-06-14] MEDS: PANTOPRAZOLE 40 MG TABLET PO SCH (10:10)
[2021-06-14] MEDS: ASPIRIN COATED 81 MG TABLET.EC PO SCH (10:10)
[2021-06-14] MEDS: LOSARTAN POTASSIUM 50 MG TABLET PO SCH (10:10)
[2021-06-14] MEDS ORDERED: PT OWN MED DRAWER 7, Y5N ONE (10:12)
[2021-06-14] MEDS: COLCHICINE 0.6 MG TAB PO SCH (10:12)
[2021-06-14] MEDS: NIFEdipine E.R 60 MG TABLET PO SCH ×2 (10:16→21:39)
[2021-06-14] MEDS: LABETALOL HCL 200 MG TABLET (FP) PO SCH ×2 (10:16→21:38)
[2021-06-14 10:57] LABS: HEMATOCRIT 33.4 % (35.4-49); HEMOGLOBIN 10.6 GM/dL (11.7-16.9); MCH 24.1 pg (25.7-33.7); MCHC 31.7 g/dl (32.0-35.9); PLATELET COUNT 496 10^3/uL (134-434); RDW 17.5 % (11.9-15.9); WHITE BLOOD COUNT 12.9 K/mm3 (4.0-10.0)
[2021-06-14 11:21] LABS: CALCIUM 9.2 mg/dL (8.5-10.1)
[2021-06-14 11:22] LABS: BLOOD UREA NITROGEN 26.2 mg/dL (7-18)
[2021-06-14 11:25] LABS: CREATININE 2.1 mg/dL (0.55-1.3)
[2021-06-14 11:30] LABS: ANISOCYTOSIS 2+; MACROCYTOSIS 0; PLATELET ESTIMATE INCREASED
[2021-06-14] MEDS ORDERED: POTASSIUM CHLORIDE TABS 20 MEQ TABLET.ER (FP) PO ONE (14:02)
[2021-06-14] MEDS ORDERED: LABETALOL HCL 100 MG TABLET (FP) PO ONE (16:37)
[2021-06-14] MEDS ORDERED: POTASSIUM CHLORIDE ORAL LIQUID 20 MEQ/15 ML PO ONE (18:25)
[2021-06-15] MEDS: HEPARIN NA (PORCINE) 5,000 UNITS/ML 1ML VIAL SQ SCH ×3 (06:18→21:49)
[2021-06-15 09:43] LABS: BASO % 0.4 % (0-2.0); EOS % 0.7 % (0-4.5); HEMATOCRIT 33.5 % (35.4-49); HEMOGLOBIN 10.8 GM/dL (11.7-16.9); LYMPH % 23.2 % (8-40); MCH 24.5 pg (25.7-33.7); MCHC 32.1 g/dl (32.0-35.9); MEAN CELL VOLUME 76.1 fl (80-96); MEAN PLT VOLUME 7.8 fl (7.5-11.1); MONO % 5.2 % (3.8-10.2); NEUT % 70.5 % (42.8-82.8); PLATELET COUNT 509 10^3/uL (134-434); RBC 4.41 M/mm3 (4.00-5.60); RDW 17.7 % (11.9-15.9); WHITE BLOOD COUNT 12.4 K/mm3 (4.0-10.0)
[2021-06-15] MEDS: PANTOPRAZOLE 40 MG TABLET PO SCH (09:43)
[2021-06-15] MEDS: predniSONE 20 MG TABLET (UD) PO SCH (09:43)
[2021-06-15] MEDS: ASPIRIN COATED 81 MG TABLET.EC PO SCH (09:43)
[2021-06-15] MEDS: LOSARTAN POTASSIUM 50 MG TABLET PO SCH (09:43)
[2021-06-15] MEDS: LABETALOL HCL 200 MG TABLET (FP) PO SCH ×2 (09:44→21:49)
[2021-06-15] MEDS: TAMSULOSIN HCL 0.4 MG CAP PO SCH (09:44)
[2021-06-15] MEDS ORDERED: PT OWN MED DRAWER 7, Y5N ONE (09:46)
[2021-06-15] MEDS: COLCHICINE 0.6 MG TAB PO SCH (09:47)
[2021-06-15] MEDS: NIFEdipine E.R 60 MG TABLET PO SCH ×2 (09:47→21:50)
[2021-06-15 10:05] LABS: BLOOD UREA NITROGEN 32.4 mg/dL (7-18); CALCIUM 9.4 mg/dL (8.5-10.1)
[2021-06-15 10:08] LABS: ALBUMIN 2.5 g/dl (3.4-5.0); CREATININE 2.2 mg/dL (0.55-1.3)
[2021-06-15 10:09] LABS: BILIRUBIN,TOTAL 0.8 mg/dL (0.2-1)
[2021-06-15 10:10] LABS: TOT PROT 6.8 g/dl (6.4-8.2)
[2021-06-15] MEDS ORDERED: POTASSIUM CHLORIDE TABS 20 MEQ TABLET.ER (FP) PO ONE (11:00)
[2021-06-15 12:38] LABS: ANISOCYTOSIS 2+; MACROCYTOSIS 0; OVALOCYTE 1+; PLATELET ESTIMATE INCREASED
[2021-06-16] MEDS: HEPARIN NA (PORCINE) 5,000 UNITS/ML 1ML VIAL SQ SCH ×2 (05:15→13:29)
[2021-06-16] MEDS ORDERED: PT OWN MED DRAWER 7, Y5N ONE (08:50)
[2021-06-16] MEDS: LABETALOL HCL 200 MG TABLET (FP) PO SCH (09:03)
[2021-06-16] MEDS: ASPIRIN COATED 81 MG TABLET.EC PO SCH (09:03)
[2021-06-16] MEDS: TAMSULOSIN HCL 0.4 MG CAP PO SCH (09:03)
[2021-06-16] MEDS: LOSARTAN POTASSIUM 50 MG TABLET PO SCH (09:04)
[2021-06-16] MEDS: COLCHICINE 0.6 MG TAB PO SCH (09:04)
[2021-06-16] MEDS: PANTOPRAZOLE 40 MG TABLET PO SCH (09:05)
[2021-06-16] MEDS: NIFEdipine E.R 60 MG TABLET PO SCH (09:07)
[2021-06-16] MEDS ORDERED: COLCHICINE 0.6 MG TAB PO SCH (10:00)
[2021-06-16 13:40] LABS: BLOOD UREA NITROGEN 32.6 mg/dL (7-18)
[2021-06-16 13:43] LABS: CREATININE 2.1 mg/dL (0.55-1.3)
[2021-06-16] MEDS ORDERED: POTASSIUM CHLORIDE TABS 20 MEQ TABLET.ER (FP) PO ONE (14:00)
[2021-06-16 14:45] VITALS: BP 148/83; PULSE 73; TEMP 98
== END 2021-06-16 18:09 | DRG 351 ==
LOC: JER 10:24 → JERBED 17:24 → J6S 22:24
PROVIDERS: ADMIT Internal Medicine
DX: M10.9 Gout, unspecified (principal); N40.0 Benign prostatic hyperplasia without lower urinary tract symptoms; K21.9 Gastro-esophageal reflux disease without esophagitis; I12.9 Hypertensive chronic kidney disease with stage 1 through stage 4 chronic kidney disease, or unspecified chronic kidney disease; N18.4 Chronic kidney disease, stage 4 (severe); M25.571 Pain in right ankle and joints of right foot; E87.6 Hypokalemia; I69.351 Hemiplegia and hemiparesis following cerebral infarction affecting right dominant side; M25.561 Pain in right knee; E78.5 Hyperlipidemia, unspecified; N17.9 Acute kidney failure, unspecified
CPT/HCPCS: 36415; 71045-TC-FY; 80048; 80053; 83735; 84100; 84550; 85025; 93005; 93010; 93971-TC; 97116-GP; 97162-GP; 99285-25; C9803; J1644; U0003; U0005

== ENCOUNTER 2025-01-18 10:40 | Emergency (ER) | payer OTHER ==
[2025-01-18] MEDS: LOSARTAN 50MG/HCTZ 12.5MG 1 TAB PO ONE (11:38)
[2025-01-18] MEDS ORDERED: LOSARTAN POTASSIUM 50 MG TABLET ONE (11:40)
[2025-01-18] MEDS ORDERED: LABETALOL HCL 200 MG TABLET (FP) ONE (11:40)
[2025-01-18] MEDS ORDERED: predniSONE 20 MG TABLET (UD) ONE (11:40)
[2025-01-18] MEDS ORDERED: NIFEdipine E.R 60 MG TABLET PO ONE (11:41)
[2025-01-18] MEDS: LOSARTAN POTASSIUM 50 MG TABLET PO ONE (11:43)
[2025-01-18] MEDS: NIFEdipine E.R 60 MG TABLET PO ONE (11:43)
[2025-01-18] MEDS: LABETALOL HCL 200 MG TABLET (FP) PO ONE (11:44)
[2025-01-18] MEDS: predniSONE 20 MG TABLET (UD) PO ONE (11:44)
[2025-01-18 12:04] VITALS: RESP 14; TEMP 98
[2025-01-18 12:07] VITALS: BMI 29.2
[2025-01-18 13:18] VITALS: BP 225/113; PULSE 65
== END 2025-01-18 13:59 | disposition home or self-care (01) ==
LOC: JER 10:40
DX: I16.0 Hypertensive urgency (principal); I10 Essential (primary) hypertension; M1A.0720 Idiopathic chronic gout, left ankle and foot, without tophus (tophi); M25.572 Pain in left ankle and joints of left foot; M25.472 Effusion, left ankle
CPT/HCPCS: 99283-25

== ENCOUNTER 2025-03-28 10:45 | Emergency (ER) | payer OTHER ==
[2025-03-28] MEDS ORDERED: ACETAMINOPHEN INJECTION 100 ML ONE (11:30)
[2025-03-28] MEDS: ACETAMINOPHEN 1000 MG/100 ML BAG IVPB ONE (11:50)
[2025-03-28 11:59] VITALS: TEMP 98.1; BMI 27.4
[2025-03-28 12:00] LABS: ABSOLUTE IMMATURE GRANULOCYTES 0.02 x10^3/uL (0.0-0.031); BASOPHILS # 0.03 x10^3/uL (0.01-0.08); EOSINOPHIL % 0.8 % (0.8-7.0); EOSINOPHILS # 0.07 x10^3/uL (0.04-0.54); MCHC 31.4 g/dl (32.3-36.5); MEAN CELL VOLUME 79.3 fl (79.0-92.2); MEAN PLT VOLUME 10.2 fl (9.4-12.4); MONOCYTE # 0.61 x10^3/uL (0.30-0.82); MONOCYTE % 7.0 % (5.3-12.2); RDW 14.9 % (12.2-16.6)
[2025-03-28 12:07] LABS: INR 1.1 (0.83-1.09); PROTHROMBIN TIME (PATIENT) 12.1 SEC (9.7-13.0)
[2025-03-28 12:10] LABS: ACTIVATED PTT 41.5 SECONDS (25.2-36.5)
[2025-03-28 12:10] LABS: URINE APPEARANCE CLEAR; URINE COLOR YELLOW
[2025-03-28 12:11] LABS: URINE BILIRUBIN NEGATIVE (NEGATIVE); URINE GLUCOSE (UA) NEGATIVE (NEGATIVE); URINE KETONE NEGATIVE (NEGATIVE); URINE LEUK ESTERASE NEGATIVE (NEGATIVE); URINE NITRITE NEGATIVE (NEGATIVE); URINE PROTEIN 2+ (NEGATIVE); URINE UROBILINOGEN 0.2 mg/dL (0.2-1.0)
[2025-03-28 12:26] LABS: GLUCOSE,RANDOM 93.0 mg/dL (74-106)
[2025-03-28 12:27] LABS: TOT PROT 7.7 g/dl (6.4-8.2)
[2025-03-28 12:28] LABS: CO2 24.0 mmol/L (21-32)
[2025-03-28 12:29] LABS: ALK PHOS 93.0 U/L (40-150)
[2025-03-28 12:32] LABS: CREATININE 2.36 mg/dL (0.55-1.3); SGOT/AST 26.0 U/L (5-34); SGPT/ALT 8.0 U/L (0-55)
[2025-03-28 12:50] LABS: HCV DIAGNOSTIC IN-HOUSE W/RFLX NON-REACTIVE (NONREACTIVE); HIV INTERPRETATION NEGATIVE (NEGATIVE)
[2025-03-28 13:37] VITALS: RESP 20
[2025-03-28 13:54] VITALS: BP 179/92; PULSE 89
== END 2025-03-28 13:54 | disposition home or self-care (01) ==
LOC: JER 10:45
PROC: 3E033NZ Introduction of Analgesics, Hypnotics, Sedatives into Peripheral Vein, Percutaneous Approach (ICD-10-PCS; principal; 2025-03-28)
DX: M25.562 Pain in left knee (principal); I10 Essential (primary) hypertension
CPT/HCPCS: 36415; 70450-TC; 71045-TC-FY; 73562-TC-LT-FY; 80053; 81003; 85025; 85610; 85730; 86803; 86850; 86900; 86901; 87086; 87389; 93005; 93010; 99285-25